=== PATIENT | male | born 1960 | race Caucasian/White ===

== ENCOUNTER 2016-08-27 09:33 | Emergency (ER) | payer OTHER ==
[2016-08-27 09:42] VITALS: BMI 23.5
[2016-08-27] MEDS ORDERED: SODIUM CHLORIDE 1,000 ML IV STA (10:41)
--- NOTE | 2016-08-27 10:41 | PDOC ---
History of Present Illness - General History Source: Patient Exam Limitations: No Limitations - History of Present Illness Initial Comments: 08/27/16 10:50 The patient is a 56-year-old man with a significant past medical history of colitis who presents to the emergency department via walk-in for further evaluation of abdominal pain for the past 4 days. Patient states he went out to have dinner with his children and after arriving home he vomited. Initial emesis appearance consisted of food particles, however the next day he experienced symptoms of intermittent diffuse abdominal cramping pain, described as feeling that his abdomen is "heavy" with a rated 2/10 in severity and vomited 3 times, which as per patient had a bile- yellow-like appearance. He admits that for the past 2 days, he has been feeling better- no nausea, vomiting. He states that today he noted an episode of hematuria- with scant blood, thus he decided to present to the ED for further evaluation. No history of kidney stones. He denies fevers, chills, weakness, chest pain, cough, shortness of breath, headache He denies He denies changes in bowel habits, dysuria, urinary frequency/urgency , flank pain, testicular pain or penile discharge. Allergies: Penicillin Past Surgical History: Appendectomy. Abdominal hernia with mesh Social History: No tobacco and EtOH use. Occasional Marijuana use Primary Care Physician: Dr. Tonio Robles <Hoa Castano - Last Filed: 08/27/16 11:01> - General History Source: Patient, Old Records Exam Limitations: No Limitations <Adela Cedillo - Last Filed: 08/27/16 14:49> - General Chief Complaint: Pain, Acute Stated Complaint: BLOOD IN URINE, VOMITING Time Seen by Provider: 08/27/16 10:35 Past History <Hoa Castano - Last Filed: 08/27/16 11:01> - Past Medical History Anemia: No Asthma: No Cancer: No Cardiac Disorders: No CVA: No COPD: No CHF: No Dementia: No Diabetes: No GI Disorders: Yes (colitis) Disorders: No HTN: No Hypercholesterolemia: No Liver Disease: No Seizures: No Thyroid Disease: No - Surgical History Abdominal Surgery: Yes (abd hernia with mesh) Appendectomy: Yes Cardiac Surgery: No Cholecystectomy: No Lung Surgery: No Neurologic Surgery: No Orthopedic Surgery: No - Psycho/Social/Smoking Cessation Hx Anxiety: No Suicidal Ideation: No Smoking History: Never smoked Have you smoked in the past 12 months: No Information on smoking cessation initiated: No Hx Alcohol Use: No Drug/Substance Use Hx: No Substance Use Type: Alcohol Hx Substance Use Treatment: No <Adela Cedillo - Last Filed: 08/27/16 14:49> - Past Medical History Allergies/Adverse Reactions: Allergies Allergy/AdvReac Type Severity Reaction Status Date / Time Penicillins Allergy Severe Rash Verified 08/27/16 09:38 Home Medications: Ambulatory Orders NK [No Known Home Medication] 08/27/16 Review of Systems - Review of Systems Able to Perform ROS?: Yes Comments:: 08/27/16 10:58 CONSTITUTIONAL: Absent: fever, chills, diaphoresis, generalized weakness, malaise, loss of appetite HEENT: Absent: rhinorrhea, nasal congestion, throat pain, throat swelling, difficulty swallowing, mouth swelling, ear pain, eye pain, visual Changes CARDIOVASCULAR: Absent: chest pain, syncope, palpitations, irregular heart rate , lightheadedness, peripheral edema RESPIRATORY: Absent: cough, shortness of breath, dyspnea with exertion, orthopnea, wheezing, stridor, hemoptysis GASTROINTESTINAL: Present: Abdominal Pain. Nausea. Vomiting. Absent: abdominal distension, diarrhea, constipation, melena, hematochezia GENITOURINARY: Present: Hematuria. Absent: dysuria, frequency, urgency, hesitancy, flank pain, genital pain MUSCULOSKELETAL: Absent: myalgia, arthralgia, joint swelling SKIN: Absent: rash, itching, pallor HEMATOLOGIC/IMMUNOLOGIC: Absent: easy bleeding, easy bruising, lymphadenopathy, frequent infections ENDOCRINE:Absent: unexplained weight gain, unexplained weight loss, heat intolerance, cold intolerance NEUROLOGIC: Absent: headache, focal weakness or paresthesias, dizziness, unsteady gait, seizure, mental status changes, bladder or bowel incontinence PSYCHIATRIC: Absent: anxiety, depression, suicidal or homicidal ideation, hallucinations <Hoa Castano - Last Filed: 08/27/16 11:01> *Physical Exam - Vital Signs Last Vital Signs Temp Pulse Resp BP Pulse Ox 97.8 F 99 H 18 138/104 100 08/27/16 09:39 08/27/16 09:39 08/27/16 09:39 08/27/16 09:39 08/27/16 09:39 - Physical Exam Comments: 08/27/16 10:59 GENERAL: Well developed, well nourished. Awake and alert. No acute distress. HEENT: Normocephalic, atraumatic. PERRLA, EOMI. No conjunctival pallor. Sclera are non-icteric. Moist mucous membranes. Oropharynx is clear. NECK: Supple. Full ROM. No JVD. CARDIOVASCULAR: Regular rate and rhythm. No murmurs, rubs, or gallops. PULMONARY: No evidence of respiratory distress. Lungs clear to auscultation bilaterally. No wheezing, rales or rhonchi. ABDOMINAL: Soft. Non-tender. Non-distended. No rebound or guarding. No organomegaly. Normoactive bowel sounds. MUSCULOSKELETAL: Normal range of motion at all joints. No bony deformities or tenderness. No CVA tenderness. EXTREMITIES: No cyanosis. No clubbing. No edema. No calf tenderness. SKIN: Warm and dry. Normal capillary refill. No rashes. No jaundice. NEUROLOGICAL: Alert, awake, appropriate. Cranial nerves 2-12 intact. Normal speech. PSYCHIATRIC: Cooperative. Good eye contact. Appropriate mood and affect. <Hoa Castano - Last Filed: 08/27/16 11:01> - Vital Signs Last Vital Signs Temp Pulse Resp BP Pulse Ox 97.8 F 99 H 18 138/104 100 08/27/16 09:39 08/27/16 09:39 08/27/16 09:39 08/27/16 09:39 08/27/16 09:39 <Adela Cedillo - Last Filed: 08/27/16 14:49> ED Treatment Course - LABORATORY CBC & Chemistry Diagram: 08/27/16 11:20 08/27/16 11:20 <Adela Cedillo - Last Filed: 08/27/16 14:49> Medical Decision Making - Medical Decision Making 08/27/16 10:42 56-year-old male with history of colitis presents to the emergency department with 3 days of nausea, vomiting and hematuria today; the patient denies abdominal pain. Differential diagnosis includes but is not limited to: Nephrolithiasis, UTI, bladder mass, anemia, electrolyte abnormality, dehydration , toxic/metabolic derangement. Plan: 1. Urine analysis 2. Labs 3. IV fluids for hydration 4. Observe and reevaluate 08/27/16 14:45 Addendum: The patient's labs were reviewed and are noted in the EMR. The urine analysis was significant for several hundred red blood cells and a few white cells (but negative nitrites or LE) therefore CT scan of the abdomen and pelvis was obtained that was negative for signs of nephrolithiasis. I have reevaluated the patient at the time and he is feeling improved. A potential diagnosis is that he passed a kidney stone while he was here in the ED. Will discharge the patient home and I have advised the patient to follow-up with his primary care physician, Dr. Robles, this week. I have also advised the patient to return to the emergency department if his symptoms persist, worsen, or new symptoms arise. <Adela Cedillo - Last Filed: 08/27/16 14:49> *DC/Admit/Observation/Transfer - Attestations Scribe Attestion: 08/27/16 11:00 Documentation prepared by Hoa Castano, acting as medical genetics director for Adela Cedillo MD. <Hoa Castano - Last Filed: 08/27/16 11:01> - Discharge Dispostion Admit: No - Attestations Physician Attestion: 08/27/16 10:42 I, Dr. Adela Cedillo, attest that the scribes documentation that appears above has been prepared under my direction and personally reviewed by me in its entirety. I confirmed that the note above accurately reflects all work, treatment, procedures, and medical decision-making performed by me. <Adela Cedillo - Last Filed: 08/27/16 14:49> Diagnosis at time of Disposition: Hematuria, Nausea and vomiting - Discharge Dispostion Disposition: HOME Condition at time of disposition: Stable - Patient Instructions Printed Discharge Instructions: DI for Hematuria Additional Instructions: You have blood in your urine however your CT scan of the abdomen and pelvis was negative for kidney stones. I urine culture has been sent and your primary care physician should follow the results. You should also be referred to a urologist for follow-up (you may call Dr. Fournier [phone] for an appointment). Please return to the emergency department if your symptoms persist, worsen, or new symptoms arise.
[2016-08-27 11:38] LABS: BASOPHIL 0.6 % (0-2.0); EOSINOPHIL 0.7 % (0-4.5); MCH 29.7 pg (25.7-33.7); MCHC 33.9 g/dl (32.0-35.9); MEAN CELL VOLUME 87.8 fl (80-96); MEAN PLT VOLUME 9.7 fl (7.5-11.1); NEUTROPHILS 78.2 % (42.8-82.8); PLATELET COUNT 245 K/MM3 (134-434); RDW 13.1 % (11.9-15.9); WHITE BLOOD COUNT 10.5 K/mm3 (4.0-10.0)
[2016-08-27 11:52] LABS: ALBUMIN 4.3 g/dl (3.4-5.0); BILIRUBIN,TOTAL 1.1 mg/dL (0.2-1.0); CALCIUM 10.2 mg/dL (8.5-10.1); COCKROFT - GAULT 36.89; CREATININE 2.1 mg/dL (0.7-1.3); PHOSPHOROUS 3.5 mg/dL (2.5-4.9); TOT PROT 8.7 g/dl (6.4-8.2)
[2016-08-27 12:13] LABS: MAGNESIUM 2.2 mg/dL (1.8-2.4)
[2016-08-27 13:58] LABS: URINE APPEARANCE CLOUDY; URINE BILIRUBIN NEGATIVE (NEGATIVE); URINE GLUCOSE (UA) NEGATIVE (NEGATIVE); URINE KETONE 1+ (NEGATIVE); URINE LEUK ESTERASE NEGATIVE (NEGATIVE); URINE NITRITE NEGATIVE (NEGATIVE); URINE UROBILINOGEN NEGATIVE E.U./dl (0.2-1.0)
[2016-08-27 14:00] LABS: URINE BLOOD 3+ (NEGATIVE); URINE COLOR AMBER; URINE PROTEIN 2+ (NEGATIVE)
[2016-08-27 14:03] LABS: URINE MUCUS RARE; URINE WBC 29 /hpf (3-5)
[2016-08-27 14:04] LABS: URINE RBC 489 /hpf (0-3)
[2016-08-27 16:07] VITALS: BP 134/91; PULSE 100; TEMP 97.9
== END 2016-08-27 16:07 | disposition home or self-care (01) ==
LOC: JER 09:33
PROC: 3E0337Z Introduction of Electrolytic and Water Balance Substance into Peripheral Vein, Percutaneous Approach (ICD-10-PCS; principal; 2016-08-27)
DX: R11.2 Nausea with vomiting, unspecified (principal); R31.9 Hematuria, unspecified
CPT/HCPCS: 36415; 74176-TC; 80053; 81003; 81015; 83735; 84100; 85025; 87086; 99283-25

== ENCOUNTER 2019-11-15 18:02 | Inpatient (IN) | payer OTHER ==
[2019-11-15] MEDS ORDERED: LIDOCAINE HCL 2% JELLY 10 ML CARTRIDGE UR ONE (18:10)
[2019-11-15] MEDS ORDERED: LIDOCAINE HCL 2% JELLY (5 ML/TUBE) ONE (18:11)
--- NOTE | 2019-11-15 18:23 | PDOC ---
History of Present Illness - General Chief Complaint: Urinary Problem Stated Complaint: TROUBLE URINATING Time Seen by Provider: 11/15/19 18:07 History Source: Patient Exam Limitations: No Limitations - History of Present Illness Initial Comments: 11/15/19 18:21 HPI 59 YOM h/o colitis and prior appendectomy and abdominal hernia with mesh, presenting with sury hematuria x 2 days, today he was unable to urinate and dysuria/burning sensation (which he is unclear if related to his hematuria). a/w suprapubic pressure. he admits to heat exhaustion and dehydration similar episode several years ago with hematuria and inability to urinate, where he required rosa catheter, no complications and unremarkable workup; sx were attributed to dehydration he also endorses intermittent chest pressure and SOB, dizziness x 2 weeks, usually lasts 15 minutes, nonexertional and nonradiating no history of kidney stones. He denies fevers, chills, weakness, headache He denies changes in bowel habits, diarrhea, vomiting. urinary frequency/urgency, flank pain, testicular pain or penile discharge. Allergies: Penicillin Past Surgical History: Appendectomy. Abdominal hernia with mesh Social History: No tobacco and EtOH use. Occasional Marijuana use Primary Care Physician: Dr. Tonio Robles Review of systems Constitutional: no fevers or chills. No weakness HEENT: no headache or dizziness. No congestion. No visual/hearing disturbances. CVS: no cp or syncope. Resp: no sob. No cough. Gastrointestinal: no abdominal pain, nausea, vomiting, diarrhea. Genitourinary: no urinary sx such as urgency/frequency. +hematuria. +dysuria/burning with urination. +urinary retention. MUSCULOSKELETAL: No joint pain and swelling. No neck or back pain. SKIN: no redness or skin changes, no discharge, no rash. No wounds. Hematologic: no easy bruising/bleeding. NEUROLOGIC: No headache, dizziness, LOC or altered mental status. No weakness, numbness or tingling. Psych: no anxiety or depression Allergic/Immunologic: no allergies All other systems reviewed and negative, or as documented in HPI. Physical exam General: Well appearing, awake and alert, NAD. HEENT: NCAT, PERRL, EOMI, clear conjunctiva, anicteric, moist mucus membranes, clear oropharynx, no oral lesions.. Neck: neck supple, FROM Resp: CTAB, normal and even respirations, no respiratory distress CVS: tachycardic, no murmurs, 2+ peripheral pulses throughout, no peripheral edema Abdomen: soft, +suprapubic tenderness. no rebound. +vol guarding. no CVAT. Back: nontender, normal inspection and ROM MSK: no edema, SHARP x4, ROM intact. No clubbing or cyanosis. normal bulk and tone. Extremities: no calf tenderness Neuro: alert Psych: Calm and cooperative, mildly anxious Skin: warm and well perfused, cap refill <2 sec, normal color, no rash or skin discoloration. 11/15/19 18:24 11/15/19 18:26 Past History - Medical History Allergies/Adverse Reactions: Allergies Allergy/AdvReac Type Severity Reaction Status Date / Time Penicillins Allergy Severe Rash Verified 11/15/19 18:03 Home Medications: Ambulatory Orders NK [No Known Home Medication] 08/27/16 Anemia: No Asthma: No Cancer: No Cardiac Disorders: No CVA: No COPD: No CHF: No Dementia: No Diabetes: No GI Disorders: Yes (colitis) Disorders: No HTN: No Hypercholesterolemia: No Liver Disease: No Seizures: No Thyroid Disease: No - Surgical History Abdominal Surgery: Yes (abd hernia with mesh) Appendectomy: Yes Cardiac Surgery: No Cholecystectomy: No Lung Surgery: No Neurologic Surgery: No Orthopedic Surgery: No - Psycho-Social/Smoking History Smoking History: Never smoked Have you smoked in the past 12 months: No Heart Score/ECG Review #1 ECG reviewed & interpreted by me at: 18:40 General ECG Interpretation: Sinus Rhythm, Normal Rate, Normal Intervals 11/15/19 18:57 EKG normal sinus rhythm 89 bpm, no interval abnormalities, narrow QRS, ST and T wave segments and morphology normal. Nonspecific T wave abnormalities ED Treatment Course - LABORATORY CBC & Chemistry Diagram: 11/16/19 17:18 11/16/19 10:28 Medical Decision Making - Medical Decision Making 11/15/19 18:26 Vital Signs Temp Pulse Resp BP Pulse Ox 98.7 F 108 H 18 153/94 100 11/15/19 18:03 11/15/19 18:03 11/15/19 18:03 11/15/19 18:03 11/15/19 18:03 59-year-old male with history of colitis presents to the emergency department with hematuria x 2 days, unable to urinate, suprapubic pressure; the patient denies abdominal pain or flank pain Differential diagnosis includes but is not limited to: Nephrolithiasis, UTI, bladder mass, hemorrhagic cystitis, Cr elevation/KIERAN, anemia, electrolyte abnormality, dehydration, toxic/metabolic derangement. ACS, arrhythmia doubt PE more likely pain/discomfort and anxiety 11/15/19 18:55 rosa catheter placed, 1L sury blood output in the container. labs and lytes with acute anemia Hb 6.6, hcg 21. needs blood, sury hematuria and acute blood loss anemia transfuse 2 units of blood. consent signed, discussed indications and risks of blood transfusion CT spiral indicated to eval for stone vs mass Cr chronically elevated ~2 IV abx - to cover for infection empirically given his urinary sx. admission warranted 11/15/19 18:57 11/16/19 19:44 Discharge - Discharge Information Problems reviewed: Yes Clinical Impression/Diagnosis: Anemia, Bladder mass Hematuria Qualifiers: Qualified Code(s): R31.9 - Condition: Stable - Admission Yes - Follow up/Referral - Patient Discharge Instructions - Post Discharge Activity
[2019-11-15] MEDS ORDERED: SODIUM CHLORIDE 0.9% 500 ML INFUS.BAG IV ONE (18:24)
[2019-11-15 18:46] LABS: BASO % 0.6 % (0-2.0); EOS % 1.5 % (0-4.5); LYMPH % 13.1 % (8-40); MCHC 30.3 g/dl (32.0-35.9); MEAN CELL VOLUME 63.7 fl (80-96); MEAN PLT VOLUME 7.5 fl (7.5-11.1); MONO % 9.3 % (3.8-10.2); NEUT % 75.5 % (42.8-82.8); PLATELET COUNT 404 K/MM3 (134-434); RDW 16.1 % (11.9-15.9); WHITE BLOOD COUNT 11.8 K/mm3 (4.0-10.8)
[2019-11-15 18:47] LABS: MCH 19.3 pg (25.7-33.7)
[2019-11-15 18:51] LABS: HEMOGLOBIN 6.6 GM/dl (11.7-16.9)
[2019-11-15 18:52] LABS: ADD RBC MORPHOLOGY YES; HEMATOCRIT 21.7 % (35.4-49)
[2019-11-15 18:53] LABS: ACTIVATED PTT 23.2 SECONDS (25.2-36.5)
[2019-11-15 18:55] LABS: ALBUMIN 3.3 g/dl (3.4-5.0); BILIRUBIN,TOTAL 0.5 mg/dl (0.2-1); CALCIUM 8.4 mg/dl (8.5-10); CREATININE 2.2 mg/dl (0.55-1.3); POTASSIUM 4.1 mmol/L (3.5-5.1); TOT PROT 6.5 g/dl (6.4-8.2)
[2019-11-15 18:57] LABS: INR 1.09 (0.82-1.09); PROTHROMBIN TIME (PATIENT) 12.2 SEC (10.2-13.0)
--- NOTE | 2019-11-15 20:07 | PDOC ---
*Physical Exam - Vital Signs Last Vital Signs Temp Pulse Resp BP Pulse Ox 98.7 F 108 H 18 153/94 100 11/15/19 18:03 11/15/19 18:03 11/15/19 18:03 11/15/19 18:03 11/15/19 18:03 ED Treatment Course - LABORATORY CBC & Chemistry Diagram: 11/17/19 15:45 11/17/19 07:25 - ADDITIONAL ORDERS Additional order review: Laboratory Results 11/15/19 11/15/19 11/15/19 19:05 18:25 18:25 PT with INR INR PTT (Actin FS) Sodium 135 L Potassium 4.1 Chloride 108 H Carbon Dioxide 19 L Anion Gap 8 BUN 32.0 H Creatinine 2.2 H Est GFR (CKD-EPI)AfAm 36.13 Est GFR (CKD-EPI)NonAf 31.17 Random Glucose 119 H Calcium 8.4 L Total Bilirubin 0.5 AST 17 ALT 16 Alkaline Phosphatase 58 Creatine Kinase 79 Troponin I < 0.03 Total Protein 6.5 Albumin 3.3 L Urine Color Urine Appearance Urine pH Urine Protein Urine Glucose (UA) Urine Ketones Urine Blood Urine Nitrite Urine Bilirubin Urine Urobilinogen Ur Leukocyte Esterase Urine RBC Urine WBC Urine Bacteria Crossmatch See Detail 11/15/19 11/15/19 18:25 18:22 PT with INR 12.2 INR 1.09 PTT (Actin FS) 23.2 L Sodium Potassium Chloride Carbon Dioxide Anion Gap BUN Creatinine Est GFR (CKD-EPI)AfAm Est GFR (CKD-EPI)NonAf Random Glucose Calcium Total Bilirubin AST ALT Alkaline Phosphatase Creatine Kinase Troponin I Total Protein Albumin Urine Color Red Urine Appearance Bloody Urine pH 6.0 Urine Protein 2+ H Urine Glucose (UA) Negative Urine Ketones Negative Urine Blood 3+ H Urine Nitrite Negative Urine Bilirubin Small Urine Urobilinogen 0.2 Ur Leukocyte Esterase Trace H Urine RBC >100 Urine WBC 2-5 Urine Bacteria Moderate Crossmatch 11/15/19 18:30 RBC 3.40 L MCV 63.7 L MCHC 30.3 L RDW 16.1 H MPV 7.5 Neutrophils % 75.5 Lymphocytes % 13.1 Monocytes % 9.3 Eosinophils % 1.5 Basophils % 0.6 - Medications Given in the ED: ED Medications Discontinued Medications Generic Name Dose Route Start Last Admin Trade Name Freq PRN Reason Stop Dose Admin Lidocaine HCl 5 ml 11/15/19 18:10 11/15/19 18:37 Xylocaine 2% Uro-Jet UR 11/15/19 18:11 5 ml ONCE ONE Administration Sodium Chloride 1,000 ml 11/15/19 18:24 11/15/19 18:37 Normal Saline - IV 11/15/19 18:25 1,000 ml ONCE ONE Administration ED Progress Note - Progress Note Progress Note: Care of this patient received from Dr. Engel Renal stone protocol spiral CT performed: Interpretation by Dr. Germain of the radiology staff-5 x 5 cm bladder mass impinging on right ureteral orifice causing hydronephrosis/hydroureter Because of the presence of bacteria and RBCs/WBCs in urinalysis/urine microscopic, patient will be empirically treated with Rocephin 1 g IV Results discussed with the patient Patient requested Dr. Rasmussen for urology care. He was contacted and case discussed with him. Dr. Rasmussen requested that patient be admitted to [facility] and that he be kept NPO after midnight for possibility of urologic procedure tomorrow morning. Case discussed with SRINIVAS Kay. Patient will be admitted to [facility]. Discharge - Discharge Information Problems reviewed: Yes Clinical Impression/Diagnosis: Anemia, Bladder mass Hematuria Qualifiers: Qualified Code(s): R31.9 - Condition: Stable - Admission Yes - Follow up/Referral - Patient Discharge Instructions - Post Discharge Activity
[2019-11-15 20:44] LABS: ANISOCYTOSIS 1+; OVALOCYTE 1+; PLATELET ESTIMATE SLT INCREASE
[2019-11-15] MEDS ORDERED: CEFTRIAXONE 1,000 MG in DEXTROSE 5%-WATER - 50 ML IVPB ONE (21:18)
[2019-11-15] MEDS ORDERED: cefTRIAXone SODIUM 1 GM VIAL ONE (21:24)
--- NOTE | 2019-11-15 23:31 | HP ---
CHIEF COMPLAINT: hematuria and unable to urinate PCP:Dr. Tonio Robles HISTORY OF PRESENT ILLNESS: Mr. Hayden is a 59 year old male with past medical history of colitis, prior appendectomy and abdominal hernia with mesh who presented with sury hematuria x ome amd a half week. For the past 2 days he reports he was unable to urinate with dysuria/burning sensation and with suprapubic pressure. He reported having heat exhaustion and dehydration and a similar episode several years ago with hematuria and inability to urinate, where he required a rosa catheter, no complications and had an unremarkable workup and his symptoms were attributed to dehydration at that time. He also endorsed intermittent chest pressure and SOB, dizziness x 2 weeks, usually lasting 15 minutes, nonexertional and nonradiating. He denied fevers, chills, weakness, headache, changes in bowel habits, diarrhea, vomiting, urinary frequency/urgency, flank pain, or testicular pain. ER course notable for: (1)severe anemia- hgb/hct 6.6/21.7, receiving 2 Units of PRBC's (2)CT scan of abdomen with a [id number] non calcific soft tissue lesion in the right lateral half of kidney, Urology consulted-Dr. Rene (3)UA with 3+ hematuria, 2+ proteiniuria, negative nitrite, moderate bacteria ,trace leukoesterase (4)WBC 11,800- received one dose of IV Rocephin (5)KIERAN- BUN 32/creatinine 2.2 (6)normal troponin Recent Travel: no PAST MEDICAL HISTORY: colitis PAST SURGICAL HISTORY: appendectomy abdominal hernia with mesh Family History: noncontributory Social History: No tobacco and ETOH use occasional marijuana use Allergies Penicillins Allergy (Severe, Verified 11/15/19 18:03) Rash HOME MEDICATIONS: Home Medications Medication Instructions Recorded NK [No Known Home Medication] 08/27/16 REVIEW OF SYSTEMS CONSTITUTIONAL: Absent: fever, chills, diaphoresis, generalized weakness, malaise, loss of appetite, weight change HEENT: Absent: rhinorrhea, nasal congestion, throat pain, throat swelling, difficulty swallowing, mouth swelling, ear pain, eye pain, visual changes CARDIOVASCULAR: Absent: chest pain, syncope, palpitations, irregular heart rate, lightheadedness, peripheral edema, dizziness RESPIRATORY: Absent: cough, shortness of breath, dyspnea with exertion, orthopnea, wheezing, stridor, hemoptysis GASTROINTESTINAL: Absent: abdominal pain, abdominal distension, nausea, vomiting, diarrhea, constipation, melena, hematochezia GENITOURINARY: Absent: dysuria, frequency, urgency, hesitancy, hematuria, flank pain, genital pain MUSCULOSKELETAL: Absent: myalgia, arthralgia, joint swelling, back pain, neck pain SKIN: Absent: rash, itching, pallor HEMATOLOGIC/IMMUNOLOGIC: Absent: easy bleeding, easy bruising, lymphadenopathy, frequent infections ENDOCRINE: Absent: unexplained weight gain, unexplained weight loss, heat intolerance, cold intolerance NEUROLOGIC: Absent: headache, focal weakness or paresthesias, dizziness, unsteady gait, seizure, mental status changes, bladder or bowel incontinence PSYCHIATRIC: Absent: anxiety, depression, suicidal or homicidal ideation, hallucinations. PHYSICAL EXAMINATION Vital Signs - 24 hr 11/15/19 18:03 Temperature 98.7 F Pulse Rate 108 H Respiratory 18 Rate Blood Pressure 153/94 O2 Sat by Pulse 100 Oximetry (%) general no acute distress vital signs reviewed afebrile neuro no neuro deficits lungs cta nonlabored breathing effort no rales no wheezing heart s1s2 rate tachycardic regular abdomen soft nontender nondistended extremities warm to touch no pitting edema no cyanosis skin nail beds and lips pink mod calm Laboratory Results - last 24 hr 11/15/19 11/15/19 11/15/19 18:22 18:25 18:25 WBC RBC Hgb Hct MCV MCH MCHC RDW Plt Count MPV Absolute Neuts (auto) Neutrophils % Lymphocytes % Monocytes % Eosinophils % Basophils % Hypochromia Platelet Estimate Anisocytosis Microcytosis Ovalocytes PT with INR 12.2 INR 1.09 PTT (Actin FS) 23.2 L Sodium 135 L Potassium 4.1 Chloride 108 H Carbon Dioxide 19 L Anion Gap 8 BUN 32.0 H Creatinine 2.2 H Est GFR (CKD-EPI)AfAm 36.13 Est GFR (CKD-EPI)NonAf 31.17 Random Glucose 119 H Calcium 8.4 L Total Bilirubin 0.5 AST 17 ALT 16 Alkaline Phosphatase 58 Creatine Kinase 79 Troponin I Total Protein 6.5 Albumin 3.3 L Urine Color Red Urine Appearance Bloody Urine pH 6.0 Urine Protein 2+ H Urine Glucose (UA) Negative Urine Ketones Negative Urine Blood 3+ H Urine Nitrite Negative Urine Bilirubin Small Urine Urobilinogen 0.2 Ur Leukocyte Esterase Trace H Urine RBC >100 Urine WBC 2-5 Urine Bacteria Moderate Blood Type Antibody Screen Crossmatch 11/15/19 11/15/19 11/15/19 18:25 18:30 19:01 WBC 11.8 H RBC 3.40 L Hgb 6.6 L* Hct 21.7 L MCV 63.7 L MCH 19.3 L MCHC 30.3 L RDW 16.1 H Plt Count 404 MPV 7.5 Absolute Neuts (auto) 8.9 Neutrophils % 75.5 Lymphocytes % 13.1 Monocytes % 9.3 Eosinophils % 1.5 Basophils % 0.6 Hypochromia 3+ Platelet Estimate Slt increase Anisocytosis 1+ Microcytosis 3+ Ovalocytes 1+ PT with INR INR PTT (Actin FS) Sodium Potassium Chloride Carbon Dioxide Anion Gap BUN Creatinine Est GFR (CKD-EPI)AfAm Est GFR (CKD-EPI)NonAf Random Glucose Calcium Total Bilirubin AST ALT Alkaline Phosphatase Creatine Kinase Troponin I < 0.03 Total Protein Albumin Urine Color Urine Appearance Urine pH Urine Protein Urine Glucose (UA) Urine Ketones Urine Blood Urine Nitrite Urine Bilirubin Urine Urobilinogen Ur Leukocyte Esterase Urine RBC Urine WBC Urine Bacteria Blood Type O POSITIVE Antibody Screen Negative Crossmatch 11/15/19 19:05 WBC RBC Hgb Hct MCV MCH MCHC RDW Plt Count MPV Absolute Neuts (auto) Neutrophils % Lymphocytes % Monocytes % Eosinophils % Basophils % Hypochromia Platelet Estimate Anisocytosis Microcytosis Ovalocytes PT with INR INR PTT (Actin FS) Sodium Potassium Chloride Carbon Dioxide Anion Gap BUN Creatinine Est GFR (CKD-EPI)AfAm Est GFR (CKD-EPI)NonAf Random Glucose Calcium Total Bilirubin AST ALT Alkaline Phosphatase Creatine Kinase Troponin I Total Protein Albumin Urine Color Urine Appearance Urine pH Urine Protein Urine Glucose (UA) Urine Ketones Urine Blood Urine Nitrite Urine Bilirubin Urine Urobilinogen Ur Leukocyte Esterase Urine RBC Urine WBC Urine Bacteria Blood Type O POSITIVE Antibody Screen Negative Crossmatch See Detail ASSESSMENT/PLAN: 59 year old male with past medical history of colitis, prior appendectomy and abdominal hernia with mesh who presented with sury hematuria for the past week and a half and for the past 2 days with difficulty urinating and with a sensation and with suprapubic pressure. He was found to have severe anemia, leukocytosis, moderate vbacteria by UA, acute renal insufficiency and a new finding of a bladder lesion seen on CT scan of abdomen. 1. severe anemia in setting of gross hematuria asymptomatic hgb/hct 6.6/21.7 2 Units of PRBC's in progress repeat CBC in am no evidence of hypotension 2. bladder mass (new) CT scan of abdomen with a [id number] non calcific soft tissue lesion in the right lateral half of kidney Urology consulted-Dr. Rene UA with 3+ hematuria, 2+ proteinuria, trace leukoesterase, negative nitrite, moderate bacteria WBC 11,800, afebrile, received one dose of IV Rocephin urine culture pending consider ID consult if urine culture positive will keep patient NPO in anticipation for cystoscopy 3. acute renal insufficiency likey in setting of urinary retention/dehydration BUN 32/creatinine 2.2 received 1 liter IVF repeat BMP in am Nephrology consulted- Dr. Lopes 4.R/O COVID follow up on COVID swab sent 11/14 maintain strict isolation precautions for contact and droplet maintain o2 sat >90% FEN receiving blood products, will hold on giving any more IVF simultaneously with blood to prevent fluid overload BMP daily, replete electrolytes as needed NPO DVT Prophlaxis SCD's Visit type - Emergency Visit Emergency Visit: Yes ED Registration Date: 11/16/19 Care time: The patient presented to the Emergency Department on the above date and was hospitalized for further evaluation of their emergent condition. - New Patient This patient is new to me today: Yes Date on this admission: 11/16/19 - Critical Care Critical Care patient: No
[2019-11-16 04:00] VITALS: BMI 23.7
[2019-11-16] MEDS ORDERED: SODIUM CHLORIDE 1,000 ML IV SCH (08:45)
[2019-11-16] MEDS ORDERED: cefTRIAXone SODIUM 1 GM VIAL ONE (09:05)
[2019-11-16] MEDS ORDERED: DEXTROSE 5%-WATER - 50 ML IVPB ONE (09:05)
--- NOTE | 2019-11-16 09:15 | EKG ---
Test Reason : Blood Pressure : / mmHG Vent. Rate : 089 BPM Atrial Rate : 089 BPM P-R Int : 138 ms QRS Dur : 082 ms QT Int : 352 ms P-R-T Axes : 055 009 009 degrees QTc Int : 428 ms NORMAL SINUS RHYTHM NORMAL ECG NO PREVIOUS ECGS AVAILABLE Confirmed by MD CORBIN, CLAYTON ([id number]) on 11/16/2019 9:15:07 AM Referred By: Confirmed By:CLAYTON ALANIZ MD
[2019-11-16] MEDS: CEFTRIAXONE 1 GM in DEXTROSE 5%-WATER - 50 ML IVPB SCH (09:18)
[2019-11-16] MEDS ORDERED: ACETAMINOPHEN 500 MG TABLET (FP) PO PRN (11:06)
[2019-11-16 11:40] LABS: HEMATOCRIT 24.7 % (35.4-49); HEMOGLOBIN 7.7 GM/dL (11.7-16.9); MCH 21.2 pg (25.7-33.7); MEAN CELL VOLUME 68.4 fl (80-96); MEAN PLT VOLUME 8.5 fl (7.5-11.1); PLATELET COUNT 348 K/MM3 (134-434); RBC 3.62 M/mm3 (4.00-5.60); RDW 19.6 % (11.9-15.9)
--- NOTE | 2019-11-16 11:41 | CON.GU ---
Consult Consult Specialty:: Urology Referred by:: Nate service Reason for Consultation:: 59 yo male w several days gross hematuria and clotts also werakness over last several weeks. Pt states first episode of gross hematuria recently. No appreciable flank pain - Alcohol/Substance Use Hx Alcohol Use: No - Smoking History Smoking history: Never smoked Have you smoked in the past 12 months: No Home Medications - Allergies Allergies/Adverse Reactions: Allergies Allergy/AdvReac Type Severity Reaction Status Date / Time Penicillins Allergy Severe Rash Verified 11/15/19 18:03 - Home Medications Home Medications: Ambulatory Orders NK [No Known Home Medication] 08/27/16 Physical Exam- Vital Signs: Vital Signs Temperature 99.0 F 11/16/19 11:15 Pulse Rate 76 11/16/19 11:15 Respiratory Rate 18 11/16/19 11:15 Blood Pressure 126/87 11/16/19 11:15 O2 Sat by Pulse Oximetry (%) 99 11/16/19 11:15 Imaging - Results Cat Scan: Report Reviewed, Image Reviewed Problem List - Problems (1) Bladder mass Assessment/Plan: 5 cm riight sided bladder mass w secondary hydronephrosis and hematuria Pt currently undergoing second unit transfusion cont rosa to sd w irrigations For cysto turbt evacuation of clotts will plan for tomorrow NPO p mn Code(s): N32.89 - OTHER SPECIFIED DISORDERS OF BLADDER (2) Hematuria Code(s): R31.9 - HEMATURIA, UNSPECIFIED Qualifiers: Qualified Code(s): R31.9 - Hematuria, unspecified
[2019-11-16 12:08] LABS: CALCIUM 8.5 mg/dL (8.5-10.1); CREATININE 1.9 mg/dL (0.55-1.3); MAGNESIUM 2.3 mg/dL (1.8-2.4); PHOSPHOROUS 3.3 mg/dL (2.5-4.9); POTASSIUM 4.4 mmol/L (3.5-5.1)
--- NOTE | 2019-11-16 12:58 | CONSULT ---
Consultation: REQUESTING PROVIDER: Dr. Arreguin CONSULT REQUEST: We have been asked to medically evaluate this patient for Bladder mass. HISTORY OF PRESENT ILLNESS: Pt. is a 59 y.o. M w/ PMHx. of colitis when he was younger (had colonoscopy then but does not remember the details - has not had one in over 5 years however he believes they were negative) presents with hematuria including clots for the last 2 weeks. Pt. states that he came to the hospital once he started to develop increased difficulty/inablity to urinate starting 2 days ago. Pt. states this happened a few years ago when he was dehydrated; he came to the hospital was given IV fluids and a rosa. The CT A/P (non-con) at that time was negative. Pt. endorses feeling weak, dizziness, and dyspnea on exertion prior to arrival to the hospital. He states he tried to orally hydrate himself but was not able to keep up with the fluid loss. Today Pt. endorses lower abdominal fullness but not pain. Pt. denies any fever, chills, diarrhea, constipation, blood in the stool, nausea, vomiting. Pt. denies any family history of malignacy because he was adopted as a child. Pt. endorses marijuana usage every other day to help with sleep. Pt. dneies smoking or drinking history. REVIEW OF SYSTEMS: As above PHYSICAL EXAMINATION Vital Signs - 24 hr 11/15/19 11/15/19 11/16/19 18:03 19:15 00:05 Temperature 98.7 F 98.8 F Pulse Rate 108 H Pulse Rate [ 86 Left] Respiratory 18 Rate Blood Pressure 153/94 Blood Pressure 126/88 [Right Arm] O2 Sat by Pulse 100 97 100 Oximetry (%) 11/16/19 11/16/19 11/16/19 02:40 03:00 03:55 Temperature 98.8 F 98.3 F Pulse Rate 80 75 Pulse Rate [ Left] Respiratory 20 20 Rate Blood Pressure 137/80 137/80 Blood Pressure [Right Arm] O2 Sat by Pulse 98 98 99 Oximetry (%) 11/16/19 11/16/19 11/16/19 06:00 07:04 07:30 Temperature 98.6 F 98.3 F 98 F Pulse Rate 82 73 73 Pulse Rate [ Left] Respiratory 20 20 20 Rate Blood Pressure 120/75 114/72 123/71 Blood Pressure [Right Arm] O2 Sat by Pulse 98 99 98 Oximetry (%) 11/16/19 11/16/19 09:00 11:15 Temperature 98.8 F 99.0 F Pulse Rate 81 76 Pulse Rate [ Left] Respiratory 20 18 Rate Blood Pressure 114/78 126/87 Blood Pressure [Right Arm] O2 Sat by Pulse 98 99 Oximetry (%) GENERAL: Awake, alert, and fully oriented, in no acute distress. HEAD: Normal with no signs of trauma. EYES: Sclera anicteric, conjunctiva clear. EARS, NOSE, THROAT: Ears normal, nares patent, oropharynx clear without exudates. Moist mucous membranes. LUNGS: Breath sounds equal, clear to auscultation bilaterally. No wheezes, and no crackles. No accessory muscle use. HEART: Regular rate and rhythm, normal S1 and S2 without murmur ABDOMEN: Soft, nontender, not distended, normoactive bowel sounds, no guarding, no rebound, no masses. Rosa draining pink urine. MUSCULOSKELETAL: Normal range of motion at all joints. UPPER EXTREMITIES: warm, well-perfused. No cyanosis. No peripheral edema. LOWER EXTREMITIES: 2+ dorsal pedal pulses, warm, well-perfused. No calf tenderness. No peripheral edema. NEUROLOGICAL: Normal speech. Gait not assessed PSYCHIATRIC: Cooperative. Good eye contact. Appropriate mood and affect. SKIN: Warm, dry, normal turgor, no rashes or lesions noted. Laboratory Results - last 24 hr 11/15/19 11/15/19 11/15/19 18:22 18:25 18:25 WBC RBC Hgb Hct MCV MCH MCHC RDW Plt Count MPV Absolute Neuts (auto) Neutrophils % Lymphocytes % Monocytes % Eosinophils % Basophils % Hypochromia Platelet Estimate Anisocytosis Microcytosis Ovalocytes PT with INR 12.2 INR 1.09 PTT (Actin FS) 23.2 L Sodium 135 L Potassium 4.1 Chloride 108 H Carbon Dioxide 19 L Anion Gap 8 BUN 32.0 H Creatinine 2.2 H Est GFR (CKD-EPI)AfAm 36.13 Est GFR (CKD-EPI)NonAf 31.17 Random Glucose 119 H Calcium 8.4 L Phosphorus Magnesium Total Bilirubin 0.5 AST 17 ALT 16 Alkaline Phosphatase 58 Creatine Kinase 79 Troponin I Total Protein 6.5 Albumin 3.3 L Urine Color Red Urine Appearance Bloody Urine pH 6.0 Urine Protein 2+ H Urine Glucose (UA) Negative Urine Ketones Negative Urine Blood 3+ H Urine Nitrite Negative Urine Bilirubin Small Urine Urobilinogen 0.2 Ur Leukocyte Esterase Trace H Urine RBC >100 Urine WBC 2-5 Urine Bacteria Moderate Blood Type Antibody Screen Crossmatch 11/15/19 11/15/19 11/15/19 18:25 18:30 19:01 WBC 11.8 H RBC 3.40 L Hgb 6.6 L* Hct 21.7 L MCV 63.7 L MCH 19.3 L MCHC 30.3 L RDW 16.1 H Plt Count 404 MPV 7.5 Absolute Neuts (auto) 8.9 Neutrophils % 75.5 Lymphocytes % 13.1 Monocytes % 9.3 Eosinophils % 1.5 Basophils % 0.6 Hypochromia 3+ Platelet Estimate Slt increase Anisocytosis 1+ Microcytosis 3+ Ovalocytes 1+ PT with INR INR PTT (Actin FS) Sodium Potassium Chloride Carbon Dioxide Anion Gap BUN Creatinine Est GFR (CKD-EPI)AfAm Est GFR (CKD-EPI)NonAf Random Glucose Calcium Phosphorus Magnesium Total Bilirubin AST ALT Alkaline Phosphatase Creatine Kinase Troponin I < 0.03 Total Protein Albumin Urine Color Urine Appearance Urine pH Urine Protein Urine Glucose (UA) Urine Ketones Urine Blood Urine Nitrite Urine Bilirubin Urine Urobilinogen Ur Leukocyte Esterase Urine RBC Urine WBC Urine Bacteria Blood Type O POSITIVE Antibody Screen Negative Crossmatch 11/15/19 11/16/19 11/16/19 19:05 10:28 10:28 WBC 11.0 H RBC 3.62 L Hgb 7.7 L Hct 24.7 L D MCV 68.4 L MCH 21.2 L D MCHC 31.0 L RDW 19.6 H Plt Count 348 D MPV 8.5 D Absolute Neuts (auto) Neutrophils % Lymphocytes % Monocytes % Eosinophils % Basophils % Hypochromia Platelet Estimate Anisocytosis Microcytosis Ovalocytes PT with INR INR PTT (Actin FS) Sodium 141 Potassium 4.4 Chloride 114 H Carbon Dioxide 21 Anion Gap 6 L BUN 24.0 H Creatinine 1.9 H Est GFR (CKD-EPI)AfAm 43.14 Est GFR (CKD-EPI)NonAf 37.22 Random Glucose 87 Calcium 8.5 Phosphorus 3.3 Magnesium 2.3 Total Bilirubin AST ALT Alkaline Phosphatase Creatine Kinase Troponin I Total Protein Albumin Urine Color Urine Appearance Urine pH Urine Protein Urine Glucose (UA) Urine Ketones Urine Blood Urine Nitrite Urine Bilirubin Urine Urobilinogen Ur Leukocyte Esterase Urine RBC Urine WBC Urine Bacteria Blood Type O POSITIVE Antibody Screen Negative Crossmatch See Detail Active Medications Generic Name Dose Route Start Last Admin Trade Name Karel PRN Reason Stop Dose Admin Acetaminophen 500 mg 11/16/19 11:06 Tylenol - PO Q6H PRN FEVER Ceftriaxone Sodium 1 gm/ 50 mls @ 200 mls/hr 11/16/19 10:00 11/16/19 09:18 Dextrose IVPB 200 mls/hr DAILY MARKY Administration Protocol Sodium Chloride 1,000 mls @ 75 mls/hr 11/16/19 08:45 11/16/19 09:18 Normal Saline - IV 11/16/19 22:04 75 mls/hr ASDIR MARKY Administration ASSESSMENT/PLAN: Pt. is a 59 y.o. M w/ PMHx. of colitis when he was younger (had colonoscopy then but does not remember the details - has not had one in over 5 years however he believes they were negative) presents with hematuria for the last 2 weeks. #Bladder Mass w/ Hematuria CT A/P without contrast: 5x5x5 cm bladder mass in the lateral right half with mild to moderate hydroureteronephrosis, with mild soft tisue stranding, mild L. renal atrophy w/ cortical scarring and possible R. multifocal cortical scarring; punctate calcification of posterior GB wall Urology consult appreciated--> Pt. for cysoscopy in AM with biopsy Pt. received 2 units pRBCs, f/u AM CBC Anemia likely related to the acute blood loss over the last 2 weeks. Recommend surgical consult for GB pathology? (punctate calcification) Dispo: We will continue to follow the patient. Thank you for this consultative opportunity. Visit type - Emergency Visit Emergency Visit: Yes ED Registration Date: 11/16/19 Care time: The patient presented to the Emergency Department on the above date and was hospitalized for further evaluation of their emergent condition. - New Patient This patient is new to me today: Yes Date on this admission: 11/17/19 - Critical Care Critical Care patient: No ATTENDING PHYSICIAN STATEMENT I saw and evaluated the patient. I reviewed the resident's note and discussed the case with the resident. I agree with the resident's findings and plan as documented. SUBJECTIVE: OBJECTIVE: ASSESSMENT AND PLAN:
--- NOTE | 2019-11-16 13:48 | PN ---
Physical Exam: SUBJECTIVE: Patient seen and examined at bedside. The patient does not endorse any acute overnight events. The patient is producing bright red urine. Will be seen by urology for cystoscopy 11/16. OBJECTIVE: Vital Signs Period Temp Pulse Resp BP Sys/Beltran Pulse Ox Last 24 Hr 98 F-99.0 F 73-108 18-20 114-153/71-94 97-100 GENERAL: The patient is awake, alert, and fully oriented, in no acute distress. HEAD: Normal with no signs of trauma. LUNGS: Breath sounds equal, clear to auscultation bilaterally, no wheezes, no crackles, no accessory muscle use. HEART: Regular rate and rhythm, S1, S2 without murmur, rub or gallop. EXTREMITIES: 2+ pulses, warm, well-perfused, no edema. Laboratory Results - last 24 hr 11/15/19 11/15/19 11/15/19 18:22 18:25 18:25 WBC RBC Hgb Hct MCV MCH MCHC RDW Plt Count MPV Absolute Neuts (auto) Neutrophils % Lymphocytes % Monocytes % Eosinophils % Basophils % Hypochromia Platelet Estimate Anisocytosis Microcytosis Ovalocytes PT with INR 12.2 INR 1.09 PTT (Actin FS) 23.2 L Sodium 135 L Potassium 4.1 Chloride 108 H Carbon Dioxide 19 L Anion Gap 8 BUN 32.0 H Creatinine 2.2 H Est GFR (CKD-EPI)AfAm 36.13 Est GFR (CKD-EPI)NonAf 31.17 Random Glucose 119 H Calcium 8.4 L Phosphorus Magnesium Total Bilirubin 0.5 AST 17 ALT 16 Alkaline Phosphatase 58 Creatine Kinase 79 Troponin I Total Protein 6.5 Albumin 3.3 L Urine Color Red Urine Appearance Bloody Urine pH 6.0 Urine Protein 2+ H Urine Glucose (UA) Negative Urine Ketones Negative Urine Blood 3+ H Urine Nitrite Negative Urine Bilirubin Small Urine Urobilinogen 0.2 Ur Leukocyte Esterase Trace H Urine RBC >100 Urine WBC 2-5 Urine Bacteria Moderate Blood Type Antibody Screen Crossmatch 11/15/19 11/15/19 11/15/19 18:25 18:30 19:01 WBC 11.8 H RBC 3.40 L Hgb 6.6 L* Hct 21.7 L MCV 63.7 L MCH 19.3 L MCHC 30.3 L RDW 16.1 H Plt Count 404 MPV 7.5 Absolute Neuts (auto) 8.9 Neutrophils % 75.5 Lymphocytes % 13.1 Monocytes % 9.3 Eosinophils % 1.5 Basophils % 0.6 Hypochromia 3+ Platelet Estimate Slt increase Anisocytosis 1+ Microcytosis 3+ Ovalocytes 1+ PT with INR INR PTT (Actin FS) Sodium Potassium Chloride Carbon Dioxide Anion Gap BUN Creatinine Est GFR (CKD-EPI)AfAm Est GFR (CKD-EPI)NonAf Random Glucose Calcium Phosphorus Magnesium Total Bilirubin AST ALT Alkaline Phosphatase Creatine Kinase Troponin I < 0.03 Total Protein Albumin Urine Color Urine Appearance Urine pH Urine Protein Urine Glucose (UA) Urine Ketones Urine Blood Urine Nitrite Urine Bilirubin Urine Urobilinogen Ur Leukocyte Esterase Urine RBC Urine WBC Urine Bacteria Blood Type O POSITIVE Antibody Screen Negative Crossmatch 11/15/19 11/16/19 11/16/19 19:05 10:28 10:28 WBC 11.0 H RBC 3.62 L Hgb 7.7 L Hct 24.7 L D MCV 68.4 L MCH 21.2 L D MCHC 31.0 L RDW 19.6 H Plt Count 348 D MPV 8.5 D Absolute Neuts (auto) Neutrophils % Lymphocytes % Monocytes % Eosinophils % Basophils % Hypochromia Platelet Estimate Anisocytosis Microcytosis Ovalocytes PT with INR INR PTT (Actin FS) Sodium 141 Potassium 4.4 Chloride 114 H Carbon Dioxide 21 Anion Gap 6 L BUN 24.0 H Creatinine 1.9 H Est GFR (CKD-EPI)AfAm 43.14 Est GFR (CKD-EPI)NonAf 37.22 Random Glucose 87 Calcium 8.5 Phosphorus 3.3 Magnesium 2.3 Total Bilirubin AST ALT Alkaline Phosphatase Creatine Kinase Troponin I Total Protein Albumin Urine Color Urine Appearance Urine pH Urine Protein Urine Glucose (UA) Urine Ketones Urine Blood Urine Nitrite Urine Bilirubin Urine Urobilinogen Ur Leukocyte Esterase Urine RBC Urine WBC Urine Bacteria Blood Type O POSITIVE Antibody Screen Negative Crossmatch See Detail Active Medications Generic Name Dose Route Start Last Admin Trade Name Freq PRN Reason Stop Dose Admin Acetaminophen 500 mg 11/16/19 11:06 Tylenol - PO Q6H PRN FEVER Ceftriaxone Sodium 1 gm/ 50 mls @ 200 mls/hr 11/16/19 10:00 11/16/19 09:18 Dextrose IVPB 200 mls/hr DAILY MARKY Administration Protocol Sodium Chloride 1,000 mls @ 75 mls/hr 11/16/19 08:45 11/16/19 09:18 Normal Saline - IV 11/16/19 22:04 75 mls/hr ASDIR MARKY Administration ASSESSMENT/PLAN: Mr. Hayden is 59M w a h/o colitis, prior appendectomy and abdominal hernia with mesh who presented with sury hematuria without flank pain. #anemia secondary to bladder mass - CT scan reveals [id number] bladder mass w hydronephrosis - patient on rosa draining hematuria - H/H improved with 2 units of PRBC - Hgb 8.5 from 6.6 - Monitor cbc - urology consulted Dr. Rasmussen - scheduled cystoscopy, with turbt evacuations of clotting - WBC elevated 11.9 for suspected obstructive UTI - UTI treatment - ceftriaxone - oncology on board appreciate recommendations - Dr. Tadeo #CKD stage III - BUN/Cr = 24/1.9 down from 32/2.2 #FEN - NPO after midnight #DVT - SCD Visit type - Emergency Visit Emergency Visit: Yes ED Registration Date: 11/16/19 Care time: The patient presented to the Emergency Department on the above date and was hospitalized for further evaluation of their emergent condition. - New Patient This patient is new to me today: Yes Date on this admission: 11/16/19 - Critical Care Critical Care patient: No - Discharge Referral Referred to [facility] Med P.C.: No ATTENDING PHYSICIAN STATEMENT I saw and evaluated the patient. I reviewed the resident's note and discussed the case with the resident. I agree with the resident's findings and plan as documented. SUBJECTIVE: OBJECTIVE: ASSESSMENT AND PLAN:
--- NOTE | 2019-11-16 17:29 | PN ---
Teaching Attending Note Name of Resident: Bernard Araya ATTENDING PHYSICIAN STATEMENT I saw and evaluated the patient. I reviewed the resident's note and discussed the case with the resident. I agree with the resident's findings and plan as documented. SUBJECTIVE: Feeling well. No abdominal pain. Ongoing hematuria via Zhu. No chest pain/palpitations/SOB/lightheadedness. OBJECTIVE: Afebrile, Hemodynamically Stable. Last Vital Signs Temp Pulse Resp BP Pulse Ox 98.5 F 83 18 117/74 97 11/16/19 16:30 11/16/19 16:30 11/16/19 16:30 11/16/19 16:30 11/16/19 16:30 HEENT - Atraumatic, Normocephalic. Heart - S1, S2, RRR Lungs - clear to auscultation Abdomen - Soft, non-tender. Bowel Sounds normal. - Hematuria via Zhu Extremities - no edema, no calf tenderness. Neuro - AAO x 3. Tone/Power normal. Laboratory Results - last 24 hr 11/15/19 11/15/19 11/15/19 18:22 18:25 18:25 WBC RBC Hgb Hct MCV MCH MCHC RDW Plt Count MPV Absolute Neuts (auto) Neutrophils % Lymphocytes % Monocytes % Eosinophils % Basophils % Hypochromia Platelet Estimate Anisocytosis Microcytosis Ovalocytes PT with INR 12.2 INR 1.09 PTT (Actin FS) 23.2 L Sodium 135 L Potassium 4.1 Chloride 108 H Carbon Dioxide 19 L Anion Gap 8 BUN 32.0 H Creatinine 2.2 H Est GFR (CKD-EPI)AfAm 36.13 Est GFR (CKD-EPI)NonAf 31.17 Random Glucose 119 H Calcium 8.4 L Phosphorus Magnesium Total Bilirubin 0.5 AST 17 ALT 16 Alkaline Phosphatase 58 Creatine Kinase 79 Troponin I Total Protein 6.5 Albumin 3.3 L Urine Color Red Urine Appearance Bloody Urine pH 6.0 Urine Protein 2+ H Urine Glucose (UA) Negative Urine Ketones Negative Urine Blood 3+ H Urine Nitrite Negative Urine Bilirubin Small Urine Urobilinogen 0.2 Ur Leukocyte Esterase Trace H Urine RBC >100 Urine WBC 2-5 Urine Bacteria Moderate Blood Type Antibody Screen Crossmatch 11/15/19 11/15/19 11/15/19 18:25 18:30 19:01 WBC 11.8 H RBC 3.40 L Hgb 6.6 L* Hct 21.7 L MCV 63.7 L MCH 19.3 L MCHC 30.3 L RDW 16.1 H Plt Count 404 MPV 7.5 Absolute Neuts (auto) 8.9 Neutrophils % 75.5 Lymphocytes % 13.1 Monocytes % 9.3 Eosinophils % 1.5 Basophils % 0.6 Hypochromia 3+ Platelet Estimate Slt increase Anisocytosis 1+ Microcytosis 3+ Ovalocytes 1+ PT with INR INR PTT (Actin FS) Sodium Potassium Chloride Carbon Dioxide Anion Gap BUN Creatinine Est GFR (CKD-EPI)AfAm Est GFR (CKD-EPI)NonAf Random Glucose Calcium Phosphorus Magnesium Total Bilirubin AST ALT Alkaline Phosphatase Creatine Kinase Troponin I < 0.03 Total Protein Albumin Urine Color Urine Appearance Urine pH Urine Protein Urine Glucose (UA) Urine Ketones Urine Blood Urine Nitrite Urine Bilirubin Urine Urobilinogen Ur Leukocyte Esterase Urine RBC Urine WBC Urine Bacteria Blood Type O POSITIVE Antibody Screen Negative Crossmatch 11/15/19 11/16/19 11/16/19 19:05 10:28 10:28 WBC 11.0 H RBC 3.62 L Hgb 7.7 L Hct 24.7 L D MCV 68.4 L MCH 21.2 L D MCHC 31.0 L RDW 19.6 H Plt Count 348 D MPV 8.5 D Absolute Neuts (auto) Neutrophils % Lymphocytes % Monocytes % Eosinophils % Basophils % Hypochromia Platelet Estimate Anisocytosis Microcytosis Ovalocytes PT with INR INR PTT (Actin FS) Sodium 141 Potassium 4.4 Chloride 114 H Carbon Dioxide 21 Anion Gap 6 L BUN 24.0 H Creatinine 1.9 H Est GFR (CKD-EPI)AfAm 43.14 Est GFR (CKD-EPI)NonAf 37.22 Random Glucose 87 Calcium 8.5 Phosphorus 3.3 Magnesium 2.3 Total Bilirubin AST ALT Alkaline Phosphatase Creatine Kinase Troponin I Total Protein Albumin Urine Color Urine Appearance Urine pH Urine Protein Urine Glucose (UA) Urine Ketones Urine Blood Urine Nitrite Urine Bilirubin Urine Urobilinogen Ur Leukocyte Esterase Urine RBC Urine WBC Urine Bacteria Blood Type O POSITIVE Antibody Screen Negative Crossmatch See Detail Current Medications Generic Name Dose Route Start Last Admin Trade Name Freq PRN Reason Stop Dose Admin Acetaminophen 500 mg 11/16/19 11:06 Tylenol - PO Q6H PRN FEVER Ceftriaxone Sodium 1 gm/ 50 mls @ 200 mls/hr 11/16/19 10:00 11/16/19 09:18 Dextrose IVPB 200 mls/hr DAILY MARKY Administration Protocol Sodium Chloride 1,000 mls @ 75 mls/hr 11/16/19 08:45 11/16/19 09:18 Normal Saline - IV 11/16/19 22:04 75 mls/hr ASDIR MARKY Administration Home Medications Medication Instructions Recorded NK [No Known Home Medication] 08/27/16 ASSESSMENT AND PLAN: 59 year old male with history of colitis, s/p prior appendectomy and abdominal hernia repair with mesh, presents with sury hematuria, dysuria for [address] Abdomen - [id number] non-calcific soft tissue lesion in the right lateral half of bladder, mild to moderate hydro. 1. Acute Blood Loss Anemia secondary to Bladder Mass Being transfused 2 units PRBCs. Monitor CBC Bladder irrigation as per Urology Urology scheduled cystoscopy, TURBT, clot evacuation, Bladder Mass Bx tomorrow. Empirically treated for UTI with Ceftriaxone pending Urine Cx result. Oncology consulted. 2. CKD 3 - Stable. Maintain IV hydration. DVT Px - SCDs. Heparin held due to sury hematuria.
[2019-11-16 18:35] LABS: HEMATOCRIT 27.6 % (35.4-49); HEMOGLOBIN 8.5 GM/dL (11.7-16.9); MCH 21.7 pg (25.7-33.7); MCHC 30.9 g/dl (32.0-35.9); MEAN CELL VOLUME 70.3 fl (80-96); MEAN PLT VOLUME 8.5 fl (7.5-11.1); PLATELET COUNT 366 K/MM3 (134-434); RBC 3.93 M/mm3 (4.00-5.60); RDW 21.1 % (11.9-15.9); WHITE BLOOD COUNT 11.9 K/mm3 (4.0-10.0)
[2019-11-17] MEDS: SODIUM CHLORIDE 1,000 ML IV SCH ×2 (03:00→16:27)
[2019-11-17 08:09] LABS: HEMOGLOBIN 8.4 GM/dL (11.7-16.9); MCH 21.8 pg (25.7-33.7); MEAN CELL VOLUME 70.2 fl (80-96); MEAN PLT VOLUME 8.3 fl (7.5-11.1); PLATELET COUNT 335 K/MM3 (134-434); RBC 3.85 M/mm3 (4.00-5.60)
[2019-11-17 08:30] LABS: CALCIUM 7.9 mg/dL (8.5-10.1); CREATININE 1.9 mg/dL (0.55-1.3); MAGNESIUM 2.2 mg/dL (1.8-2.4); PHOSPHOROUS 2.9 mg/dL (2.5-4.9); POTASSIUM 4.4 mmol/L (3.5-5.1)
[2019-11-17] MEDS ORDERED: DEXTROSE 5%-WATER - 50 ML IVPB ONE (10:42)
[2019-11-17] MEDS ORDERED: cefTRIAXone SODIUM 1 GM VIAL ONE (10:42)
[2019-11-17] MEDS: CEFTRIAXONE 1 GM in DEXTROSE 5%-WATER - 50 ML IVPB SCH (10:46)
--- NOTE | 2019-11-17 15:45 | PN ---
Teaching Attending Note Name of Resident: Bernard Araya ATTENDING PHYSICIAN STATEMENT I saw and evaluated the patient. I reviewed the resident's note and discussed the case with the resident. I agree with the resident's findings and plan as documented. SUBJECTIVE: Feeling well. No abdominal pain. Ongoing hematuria via Zhu. No fevers/chills. OBJECTIVE: Afebrile, Hemodynamically Stable. Last Vital Signs Temp Pulse Resp BP Pulse Ox 98.4 F 77 18 143/90 99 11/17/19 11:34 11/17/19 11:34 11/17/19 11:34 11/17/19 11:34 11/17/19 11:34 Heart - S1, S2, RRR Lungs - clear to auscultation Abdomen - Soft, non-tender. Bowel Sounds normal. - Hematuria via Zhu Extremities - no edema, no calf tenderness. Neuro - AAO x 3. Tone/Power normal. Laboratory Results - last 24 hr 11/15/19 11/16/19 11/17/19 22:55 17:18 07:25 WBC 11.9 H 12.0 H RBC 3.93 L 3.85 L Hgb 8.5 L 8.4 L Hct 27.6 L 27.0 L MCV 70.3 L 70.2 L MCH 21.7 L 21.8 L MCHC 30.9 L 31.0 L RDW 21.1 H 21.0 H Plt Count 366 335 MPV 8.5 8.3 Sodium Potassium Chloride Carbon Dioxide Anion Gap BUN Creatinine Est GFR (CKD-EPI)AfAm Est GFR (CKD-EPI)NonAf Random Glucose Calcium Phosphorus Magnesium COVID-19 (LARRY) Not detected 11/17/19 07:25 WBC RBC Hgb Hct MCV MCH MCHC RDW Plt Count MPV Sodium 144 Potassium 4.4 Chloride 116 H Carbon Dioxide 22 Anion Gap 6 L BUN 22.0 H Creatinine 1.9 H Est GFR (CKD-EPI)AfAm 43.14 Est GFR (CKD-EPI)NonAf 37.22 Random Glucose 100 Calcium 7.9 L Phosphorus 2.9 Magnesium 2.2 COVID-19 (LARRY) Current Medications Generic Name Dose Route Start Last Admin Trade Name Freq PRN Reason Stop Dose Admin Acetaminophen 500 mg 11/16/19 11:06 Tylenol - PO Q6H PRN FEVER Ceftriaxone Sodium 1 gm/ 50 mls @ 200 mls/hr 11/16/19 10:00 11/17/19 10:46 Dextrose IVPB 200 mls/hr DAILY MARKY Administration Protocol Sodium Chloride 1,000 mls @ 75 mls/hr 11/17/19 02:45 11/17/19 03:00 Normal Saline - IV 75 mls/hr ASDIR MARKY Administration Home Medications Medication Instructions Recorded NK [No Known Home Medication] 08/27/16 ASSESSMENT AND PLAN: 59 year old male with history of colitis, s/p prior appendectomy and abdominal hernia repair with mesh, presents with sury hematuria, dysuria for [address] Abdomen - [id number] non-calcific soft tissue lesion in the right lateral half of bladder, mild to moderate hydro. 1. Acute Blood Loss Anemia secondary to Bladder Mass H/H 8.08/15 s/p 2 units PRBCs. Monitor CBC Bladder irrigation as per Urology Urology scheduled cystoscopy, TURBT, clot evacuation, Bladder Mass Bx for 11/17 (cancelled 11/16 due to pending CPOVID Status) Empirically treated for UTI with Ceftriaxone - will discontinue as Urine Cx negative. Oncology consulted. 2. CKD 3 - Stable. Maintain IV hydration. DVT Px - SCDs. Heparin held due to sury hematuria.
[2019-11-17 16:07] LABS: BASO % 0.7 % (0-2.0); EOS % 2.1 % (0-4.5); HEMATOCRIT 27.1 % (35.4-49); HEMOGLOBIN 8.4 GM/dL (11.7-16.9); LYMPH % 11.4 % (8-40); MCH 21.8 pg (25.7-33.7); MCHC 31.1 g/dl (32.0-35.9); MEAN CELL VOLUME 70.1 fl (80-96); MEAN PLT VOLUME 7.8 fl (7.5-11.1); MONO % 11.1 % (3.8-10.2); NEUT % 74.7 % (42.8-82.8); PLATELET COUNT 323 K/MM3 (134-434); RBC 3.87 M/mm3 (4.00-5.60); RDW 21.2 % (11.9-15.9); WHITE BLOOD COUNT 11.5 K/mm3 (4.0-10.0)
--- NOTE | 2019-11-17 18:12 | PN ---
Physical Exam: SUBJECTIVE: Patient seen and examined at bedside. Patient has no complaints and does not endorse any acute overnight events. OBJECTIVE: Vital Signs Period Temp Pulse Resp BP Sys/Beltran Pulse Ox Last 24 Hr 98.1 F-98.6 F 77-93 16-18 123-143/74-91 95-99 GENERAL: The patient is awake, alert, and fully oriented, in no acute distress. NECK: Trachea midline, full range of motion, supple. LUNGS: Breath sounds equal, clear to auscultation bilaterally, no wheezes, no crackles, no accessory muscle use. HEART: Regular rate and rhythm, S1, S2 without murmur, rub or gallop. ABDOMEN: Soft, nontender, nondistended, normoactive bowel sounds, no guarding, no rebound, no hepatosplenomegaly, no masses. EXTREMITIES: 2+ pulses, warm, well-perfused, no edema. Laboratory Results - last 24 hr 11/15/19 11/16/19 11/17/19 22:55 17:18 07:25 WBC 11.9 H 12.0 H RBC 3.93 L 3.85 L Hgb 8.5 L 8.4 L Hct 27.6 L 27.0 L MCV 70.3 L 70.2 L MCH 21.7 L 21.8 L MCHC 30.9 L 31.0 L RDW 21.1 H 21.0 H Plt Count 366 335 MPV 8.5 8.3 Absolute Neuts (auto) Neutrophils % Lymphocytes % Monocytes % Eosinophils % Basophils % Nucleated RBC % Sodium Potassium Chloride Carbon Dioxide Anion Gap BUN Creatinine Est GFR (CKD-EPI)AfAm Est GFR (CKD-EPI)NonAf Random Glucose Calcium Phosphorus Magnesium COVID-19 (LARRY) Not detected 11/17/19 11/17/19 07:25 15:45 WBC 11.5 H RBC 3.87 L Hgb 8.4 L Hct 27.1 L MCV 70.1 L MCH 21.8 L MCHC 31.1 L RDW 21.2 H Plt Count 323 MPV 7.8 Absolute Neuts (auto) 8.6 H Neutrophils % 74.7 Lymphocytes % 11.4 D Monocytes % 11.1 H D Eosinophils % 2.1 D Basophils % 0.7 Nucleated RBC % 0 Sodium 144 Potassium 4.4 Chloride 116 H Carbon Dioxide 22 Anion Gap 6 L BUN 22.0 H Creatinine 1.9 H Est GFR (CKD-EPI)AfAm 43.14 Est GFR (CKD-EPI)NonAf 37.22 Random Glucose 100 Calcium 7.9 L Phosphorus 2.9 Magnesium 2.2 COVID-19 (LARRY) Active Medications Generic Name Dose Route Start Last Admin Trade Name Freq PRN Reason Stop Dose Admin Acetaminophen 500 mg 11/16/19 11:06 Tylenol - PO Q6H PRN FEVER Ceftriaxone Sodium 1 gm/ 50 mls @ 200 mls/hr 11/16/19 10:00 11/17/19 10:46 Dextrose IVPB 200 mls/hr DAILY MARKY Administration Protocol Sodium Chloride 1,000 mls @ 75 mls/hr 11/17/19 02:45 11/17/19 16:27 Normal Saline - IV 75 mls/hr ASDIR MARKY Administration ASSESSMENT/PLAN: Mr. Hayden is 59M w a h/o colitis, prior appendectomy and abdominal hernia with mesh who presented with sury hematuria without flank pain. #anemia secondary to bladder mass - CT scan reveals [id number] bladder mass w hydronephrosis - patient on rosa draining hematuria - patient received clot irrigation in the morning with urology - H/H stabilized at 8.4 - Cystoscopy is rescheduled for tomorrow pending covid status - Monitor cbc - UTI treatment - CX negative - oncology on board appreciate recommendations - Dr. Tadeo #CKD stage III - BUN/Cr = currently 22/1.9 from 24/1.9 from 32/2.2 #FEN - continued NPO after midnight #DVT - SCD Visit type - Emergency Visit Emergency Visit: Yes ED Registration Date: 11/16/19 Care time: The patient presented to the Emergency Department on the above date and was hospitalized for further evaluation of their emergent condition. - New Patient This patient is new to me today: No - Critical Care Critical Care patient: No - Discharge Referral Referred to [facility] Med P.C.: No ATTENDING PHYSICIAN STATEMENT I saw and evaluated the patient. I reviewed the resident's note and discussed the case with the resident. I agree with the resident's findings and plan as documented. SUBJECTIVE: OBJECTIVE: ASSESSMENT AND PLAN:
[2019-11-18] MEDS: SODIUM CHLORIDE 1,000 ML IV SCH (05:44)
[2019-11-18 09:05] LABS: HEMATOCRIT 28.3 % (35.4-49); HEMOGLOBIN 8.7 GM/dL (11.7-16.9); MCH 21.5 pg (25.7-33.7); MCHC 30.7 g/dl (32.0-35.9); MEAN CELL VOLUME 70.1 fl (80-96); MEAN PLT VOLUME 8.1 fl (7.5-11.1); PLATELET COUNT 335 K/MM3 (134-434); RBC 4.04 M/mm3 (4.00-5.60); RDW 21.5 % (11.9-15.9); WHITE BLOOD COUNT 12.5 K/mm3 (4.0-10.0)
[2019-11-18 09:28] LABS: BLOOD UREA NITROGEN 21.4 mg/dL (7-18); CALCIUM 8.2 mg/dL (8.5-10.1); CREATININE 1.9 mg/dL (0.55-1.3); MAGNESIUM 2.3 mg/dL (1.8-2.4); PHOSPHOROUS 3.4 mg/dL (2.5-4.9); POTASSIUM 4.6 mmol/L (3.5-5.1)
[2019-11-18] MEDS ORDERED: MIDAZOLAM HCL 2 MG/2 ML SINGLE DOSE VIAL ONE (10:45)
[2019-11-18] MEDS ORDERED: DEXAMETHASONE SOD PHOSPHATE 4 MG/1 ML VIAL ONE (10:58)
[2019-11-18] MEDS ORDERED: ONDANSETRON 4 MG/2 ML VIAL IVPUSH PRN (11:37)
--- NOTE | 2019-11-18 12:05 | PN ---
Physical Exam: SUBJECTIVE: Patient seen and examined. No acute complaints, Pt. for cystoscopy today. OBJECTIVE: Vital Signs Period Temp Pulse Resp BP Sys/Beltran Pulse Ox Last 24 Hr 98.3 F-98.8 F 74-97 18-18 121-137/74-87 97-102 GENERAL: Awake, alert, and fully oriented, in no acute distress. HEAD: Normal with no signs of trauma. EYES: Sclera anicteric, conjunctiva clear. EARS, NOSE, THROAT: Ears normal, nares patent, oropharynx clear without exudates. Moist mucous membranes. LUNGS: Breath sounds equal, clear to auscultation bilaterally. No wheezes, and no crackles. No accessory muscle use. HEART: Regular rate and rhythm, normal S1 and S2 without murmur ABDOMEN: Soft, nontender, not distended, normoactive bowel sounds, no guarding, no rebound, no masses. Zhu draining red urine. MUSCULOSKELETAL: Normal range of motion at all joints. UPPER EXTREMITIES: warm, well-perfused. No cyanosis. No peripheral edema. LOWER EXTREMITIES: 2+ dorsal pedal pulses, warm, well-perfused. No calf tenderness. No peripheral edema. NEUROLOGICAL: Normal speech. Gait not assessed PSYCHIATRIC: Cooperative. Good eye contact. Appropriate mood and affect. SKIN: Warm, dry, normal turgor, no rashes or lesions noted. Laboratory Results - last 24 hr 11/15/19 11/17/19 11/18/19 22:55 15:45 08:00 WBC 11.5 H 12.5 H RBC 3.87 L 4.04 Hgb 8.4 L 8.7 L Hct 27.1 L 28.3 L MCV 70.1 L 70.1 L MCH 21.8 L 21.5 L MCHC 31.1 L 30.7 L RDW 21.2 H 21.5 H Plt Count 323 335 MPV 7.8 8.1 Absolute Neuts (auto) 8.6 H Neutrophils % 74.7 Lymphocytes % 11.4 D Monocytes % 11.1 H D Eosinophils % 2.1 D Basophils % 0.7 Nucleated RBC % 0 Sodium Potassium Chloride Carbon Dioxide Anion Gap BUN Creatinine Est GFR (CKD-EPI)AfAm Est GFR (CKD-EPI)NonAf Random Glucose Calcium Phosphorus Magnesium COVID-19 (LARRY) Not detected 11/18/19 08:00 WBC RBC Hgb Hct MCV MCH MCHC RDW Plt Count MPV Absolute Neuts (auto) Neutrophils % Lymphocytes % Monocytes % Eosinophils % Basophils % Nucleated RBC % Sodium 144 Potassium 4.6 Chloride 116 H Carbon Dioxide 22 Anion Gap 6 L BUN 21.4 H Creatinine 1.9 H Est GFR (CKD-EPI)AfAm 43.14 Est GFR (CKD-EPI)NonAf 37.22 Random Glucose 86 Calcium 8.2 L Phosphorus 3.4 Magnesium 2.3 COVID-19 (LARRY) Active Medications Generic Name Dose Route Start Last Admin Trade Name Freq PRN Reason Stop Dose Admin Acetaminophen 500 mg 11/16/19 11:06 Tylenol - PO Q6H PRN FEVER Fentanyl 25 mcg 11/18/19 11:37 Sublimaze Injection - IVPUSH 11/18/19 18:00 [id number] PRN PAIN-PACU ORDER X 4 DOSES ONLY Fentanyl 50 mcg 11/18/19 11:37 Sublimaze Injection - IVPUSH 11/18/19 18:00 [id number] PRN PAIN-PACU ORDER X 4 DOSES ONLY Sodium Chloride 1,000 mls @ 75 mls/hr 11/17/19 02:45 11/18/19 05:44 Normal Saline - IV 75 mls/hr ASDIR MARKY Administration Lactated Ringer's 1,000 mls @ 75 mls/hr 11/18/19 11:45 Lactated Ringers Solution IV ASDIR MARKY Ondansetron HCl 4 mg 11/18/19 11:37 Zofran Injection IVPUSH 11/19/19 11:36 Q6H PRN NAUSEA AND/OR VOMITING ASSESSMENT/PLAN: Pt. is a 59 y.o. M w/ PMHx. of colitis when he was younger (had colonoscopy then but does not remember the details - has not had one in over 5 years however he believes they were negative) presents with hematuria for the last 2 weeks. #Bladder Mass w/ Hematuria CT A/P without contrast: 5x5x5 cm bladder mass in the lateral right half with mild to moderate hydroureteronephrosis, with mild soft tisue stranding, mild L. renal atrophy w/ cortical scarring and possible R. multifocal cortical scarring; punctate calcification of posterior GB wall Urology consult appreciated--> Pt. for cysoscopy with biopsy Pt. received 2 units pRBCs, HgB stable at 8.7 Anemia likely related to the acute blood loss over the last 2 weeks. Recommend surgical consult for GB pathology? (punctate calcification) Visit type - Emergency Visit Emergency Visit: Yes ED Registration Date: 11/16/19 Care time: The patient presented to the Emergency Department on the above date and was hospitalized for further evaluation of their emergent condition. - New Patient This patient is new to me today: No - Critical Care Critical Care patient: No - Discharge Referral Referred to [facility] Med P.C.: No ATTENDING PHYSICIAN STATEMENT I saw and evaluated the patient. I reviewed the resident's note and discussed the case with the resident. I agree with the resident's findings and plan as documented. SUBJECTIVE: OBJECTIVE: ASSESSMENT AND PLAN:
[2019-11-18] MEDS: LACTATED RINGERS SOLUTION 1,000 ML IV SCH ×2 (13:15→13:31)
[2019-11-18] MEDS ORDERED: oxyCODONE HCL 5 MG TABLET PO PRN ×2 (13:17)
[2019-11-18] MEDS ORDERED: cefTRIAXone SODIUM 1 GM VIAL ONE (13:25)
[2019-11-18] MEDS ORDERED: DEXTROSE 5%-WATER - 50 ML IVPB ONE (13:25)
--- NOTE | 2019-11-18 13:48 | OP ---
Operative Note - Note: Operative Date: 11/18/19 Pre-Operative Diagnosis: Bladder tumor Operation: TURBT Surgeon: Randolph Rasmussen MD. Anesthesia: General Estimated Blood Loss (mls): 15
[2019-11-18] MEDS ORDERED: CEFTRIAXONE 1 GM in DEXTROSE 5%-WATER - 50 ML IVPB ONE (14:00)
--- NOTE | 2019-11-18 15:14 | PN ---
Teaching Attending Note Name of Resident: Bernard Araya ATTENDING PHYSICIAN STATEMENT I saw and evaluated the patient. I reviewed the resident's note and discussed the case with the resident. I agree with the resident's findings and plan as documented. SUBJECTIVE: OBJECTIVE: Afebrile, Hemodynamically Stable. Last Vital Signs Temp Pulse Resp BP Pulse Ox 97.7 F 66 18 122/78 95 11/18/19 13:30 11/18/19 13:30 11/18/19 13:30 11/18/19 13:30 11/18/19 13:30 Heart - S1, S2, RRR Lungs - clear to auscultation Abdomen - Soft, non-tender. Bowel Sounds normal. - Hematuria via Zhu Extremities - no edema, no calf tenderness. Neuro - AAO x 3. Tone/Power normal. Laboratory Results - last 24 hr 11/17/19 11/18/19 11/18/19 15:45 08:00 08:00 WBC 11.5 H 12.5 H RBC 3.87 L 4.04 Hgb 8.4 L 8.7 L Hct 27.1 L 28.3 L MCV 70.1 L 70.1 L MCH 21.8 L 21.5 L MCHC 31.1 L 30.7 L RDW 21.2 H 21.5 H Plt Count 323 335 MPV 7.8 8.1 Absolute Neuts (auto) 8.6 H Neutrophils % 74.7 Lymphocytes % 11.4 D Monocytes % 11.1 H D Eosinophils % 2.1 D Basophils % 0.7 Nucleated RBC % 0 Sodium 144 Potassium 4.6 Chloride 116 H Carbon Dioxide 22 Anion Gap 6 L BUN 21.4 H Creatinine 1.9 H Est GFR (CKD-EPI)AfAm 43.14 Est GFR (CKD-EPI)NonAf 37.22 Random Glucose 86 Calcium 8.2 L Phosphorus 3.4 Magnesium 2.3 Current Medications Generic Name Dose Route Start Last Admin Trade Name Freq PRN Reason Stop Dose Admin Acetaminophen 500 mg 11/16/19 11:06 Tylenol - PO Q6H PRN FEVER Fentanyl 25 mcg 11/18/19 11:37 Sublimaze Injection - IVPUSH 11/18/19 18:00 [id number] PRN PAIN-PACU ORDER X 4 DOSES ONLY Fentanyl 50 mcg 11/18/19 11:37 11/18/19 12:30 Sublimaze Injection - IVPUSH 11/18/19 18:00 50 mcg [id number] PRN Administration PAIN-PACU ORDER X 4 DOSES ONLY Parenteral Electrolytes 1,000 mls @ 75 mls/hr 11/18/19 13:45 Plasma-Lyte 148 - IV ASDIR MARKY Ondansetron HCl 4 mg 11/18/19 11:37 11/18/19 13:30 Zofran Injection IVPUSH 11/19/19 11:36 4 mg Q6H PRN Administration NAUSEA AND/OR VOMITING Oxycodone HCl 5 mg 11/18/19 13:17 Roxicodone - PO Q4H PRN PAIN SCALE 3-5 Oxycodone HCl 10 mg 11/18/19 13:17 Roxicodone - PO Q4H PRN PAIN SCALE 6-10 Home Medications Medication Instructions Recorded NK [No Known Home Medication] 08/27/16 ASSESSMENT AND PLAN: 59 year old male with history of colitis, s/p prior appendectomy and abdominal hernia repair with mesh, presents with sury hematuria, dysuria for [address] Abdomen - [id number] non-calcific soft tissue lesion in the right lateral half of bladder, mild to moderate hydro, mild soft tissue stranding, punctate calcification of posterior GB wall ?porcelain GB 1. Acute Blood Loss Anemia secondary to Bladder Mass H/H 8.7/28.3 s/p 2 units PRBCs. Immediately post-op s/p cystoscopy, TURBT, clot evacuation, Bladder Mass Bx Bladder irrigation as per Urology Empirically treated for UTI with Ceftriaxone - discontinued as Urine Cx negative. Oncology consulted. 2. CKD 3 - Stable. Continue IV hydration. 3. Punctate Calcification posterior GB Wall - no acute pathology currently, LFTs normal, will order Abdominal US DVT Px - SCDs. Heparin held due to sury hematuria.
--- NOTE | 2019-11-18 16:18 | PN ---
Physical Exam: SUBJECTIVE: Patient seen and examined at bedside. Patient was NPO awaiting for cystoscopy at 10am. Patient denies acute overnight events. OBJECTIVE: Vital Signs Period Temp Pulse Resp BP Sys/Beltran Pulse Ox Last 24 Hr 97.7 F-98.8 F 62-97 13-18 119-137/68-87 95-102 GENERAL: The patient is awake, alert, and fully oriented, in no acute distress. LUNGS: Breath sounds equal, clear to auscultation bilaterally, no wheezes, no crackles, no accessory muscle use. HEART: Regular rate and rhythm, S1, S2 without murmur, rub or gallop. ABDOMEN: Soft, nontender, nondistended, normoactive bowel sounds, no guarding, no rebound, no hepatosplenomegaly, no masses. EXTREMITIES: 2+ pulses, warm, well-perfused, no edema. Laboratory Results - last 24 hr 11/17/19 11/18/19 11/18/19 15:45 08:00 08:00 WBC 11.5 H 12.5 H RBC 3.87 L 4.04 Hgb 8.4 L 8.7 L Hct 27.1 L 28.3 L MCV 70.1 L 70.1 L MCH 21.8 L 21.5 L MCHC 31.1 L 30.7 L RDW 21.2 H 21.5 H Plt Count 323 335 MPV 7.8 8.1 Absolute Neuts (auto) 8.6 H Neutrophils % 74.7 Lymphocytes % 11.4 D Monocytes % 11.1 H D Eosinophils % 2.1 D Basophils % 0.7 Nucleated RBC % 0 Sodium 144 Potassium 4.6 Chloride 116 H Carbon Dioxide 22 Anion Gap 6 L BUN 21.4 H Creatinine 1.9 H Est GFR (CKD-EPI)AfAm 43.14 Est GFR (CKD-EPI)NonAf 37.22 Random Glucose 86 Calcium 8.2 L Phosphorus 3.4 Magnesium 2.3 Active Medications Generic Name Dose Route Start Last Admin Trade Name Freq PRN Reason Stop Dose Admin Acetaminophen 500 mg 11/16/19 11:06 Tylenol - PO Q6H PRN FEVER Fentanyl 25 mcg 11/18/19 11:37 Sublimaze Injection - IVPUSH 11/18/19 18:00 [id number] PRN PAIN-PACU ORDER X 4 DOSES ONLY Fentanyl 50 mcg 11/18/19 11:37 11/18/19 12:30 Sublimaze Injection - IVPUSH 11/18/19 18:00 50 mcg [id number] PRN Administration PAIN-PACU ORDER X 4 DOSES ONLY Parenteral Electrolytes 1,000 mls @ 75 mls/hr 11/18/19 13:45 Plasma-Lyte 148 - IV ASDIR MARKY Ondansetron HCl 4 mg 11/18/19 11:37 11/18/19 13:30 Zofran Injection IVPUSH 11/19/19 11:36 4 mg Q6H PRN Administration NAUSEA AND/OR VOMITING Oxycodone HCl 5 mg 11/18/19 13:17 Roxicodone - PO Q4H PRN PAIN SCALE 3-5 Oxycodone HCl 10 mg 11/18/19 13:17 Roxicodone - PO Q4H PRN PAIN SCALE 6-10 ASSESSMENT/PLAN: Mr. Hayden is 59M w a h/o colitis, prior appendectomy and abdominal hernia with mesh who presented with sury hematuria without flank pain. #anemia secondary to bladder mass - CT scan reveals [id number] bladder mass w hydronephrosis - patient on rosa draining hematuria - H/H stabilized at 8.7/28.3 s/p 2 units PRBCs. - Cystoscopy scheduled today - UTI treatment - CX negative - oncology on board appreciate recommendations - Dr. Tadeo #CKD stage III - BUN/Cr = currently 22/1.9 from 24/1.9 from 32/2.2 # GB wall found to have small area of punctate calcifications - follow with abdominal US - LFT normal #DVT - SCD Visit type - Emergency Visit Emergency Visit: Yes ED Registration Date: 11/16/19 Care time: The patient presented to the Emergency Department on the above date and was hospitalized for further evaluation of their emergent condition. - New Patient This patient is new to me today: No - Critical Care Critical Care patient: No - Discharge Referral Referred to [facility] Med P.C.: No ATTENDING PHYSICIAN STATEMENT I saw and evaluated the patient. I reviewed the resident's note and discussed the case with the resident. I agree with the resident's findings and plan as documented. SUBJECTIVE: OBJECTIVE: ASSESSMENT AND PLAN:
[2019-11-18] MEDS: ELECTROLYTE-148 SOLN 1,000 ML IV SCH (17:07)
--- NOTE | 2019-11-18 19:07 | OP ---
DATE OF OPERATION: 11/18/2019 PREOPERATIVE DIAGNOSIS: Bladder tumor large. POSTOPERATIVE DIAGNOSIS: Bladder tumor large. PROCEDURE: Transurethral resection of bladder tumor. HISTORY: This is a 59-year-old gentleman who states he had hematuria only recently. The patient presented to the hospital with severe anemia with a hemoglobin of 6.8, and noted to have a 5-cm bladder tumor with right hydronephrosis obstructing from the tumor. The patient was given 2-unit blood transfusion and was admitted. The patient then was instructed of his large mass and consented for TURBT. BRIEF OPERATIVE NOTE: The patient is brought in the operating room, placed in supine position. When general anesthesia was administered, the patient was transferred to dorsal lithotomy position. Prepped and draped in standard sterile fashion. Intravenous antibiotics were given. A timeout was performed. At this time a 24-[place] cystoscope sheath was placed into the bladder under direct vision. The tumor was massive and basically occupying approximately 75% of the bladder. It was somewhat difficult to get the scope past the edge of the bladder tumor. the inferior part was resected believed to be the muscle layer. The base of the resection area was cauterized. The area was cauterized due to the fact that it was most likely a muscle-invasive tumor causing hydronephrosis and due to the difficulty of the resection and the tumor basically be unresectable endoscopically. The specimen was then given off, and a 24-[place] CBI catheter was placed and was draining blood-tinged urine. At this time the patient was brought to recovery in stable satisfactory condition. Tramaine [id number]
[2019-11-19] MEDS: ELECTROLYTE-148 SOLN 1,000 ML IV SCH ×3 (06:31→21:56)
[2019-11-19 08:35] LABS: HEMATOCRIT 29.8 % (35.4-49); HEMOGLOBIN 9.1 GM/dL (11.7-16.9); MCH 21.7 pg (25.7-33.7); MCHC 30.6 g/dl (32.0-35.9); MEAN CELL VOLUME 70.7 fl (80-96); MEAN PLT VOLUME 8.3 fl (7.5-11.1); PLATELET COUNT 342 K/MM3 (134-434); RBC 4.22 M/mm3 (4.00-5.60); RDW 21.9 % (11.9-15.9); WHITE BLOOD COUNT 18.6 K/mm3 (4.0-10.0)
[2019-11-19 08:46] LABS: CALCIUM 8.3 mg/dL (8.5-10.1); CREATININE 1.9 mg/dL (0.55-1.3); MAGNESIUM 2.3 mg/dL (1.8-2.4); PHOSPHOROUS 4.1 mg/dL (2.5-4.9); POTASSIUM 4.8 mmol/L (3.5-5.1)
--- NOTE | 2019-11-19 10:15 | PN ---
Progress Note (short form) - Note Progress Note: patient is comfortable urine is clear on CBI had some clots overnight awaiting path continue CBI today
[2019-11-19] MEDS ORDERED: PT OWN MED DRAWER 7, Y5N ONE (10:34)
[2019-11-19] MEDS ORDERED: BISACODYL 10 MG SUPP.RECT PR ONE (13:29)
[2019-11-19] MEDS: DOCUSATE SODIUM 100 MG CAPSULE (FP) PO SCH ×2 (13:53→22:03)
--- NOTE | 2019-11-19 13:59 | PN ---
Progress Note (short form) - Note Progress Note: POD #1 s/p TURBT under GA. Doing well, all questions answered.
--- NOTE | 2019-11-19 14:31 | PATH ---
Surgical Pathology Report Patient Name: TAO VELAZQUEZ Med. Rec. 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 SCANT MUSCULARIS PROPRIA IDENTIFIED. NO FLAT CARCINOMA IN SITU (CIS) IDENTIFIED. Comment: Case seen in intradepartmental review with consensus on diagnosis. Findings discussed with Dr. Fournier, 11/19/19. Electronically Signed Kalli Ayala M.D. Gross Description Received in formalin labeled "bladder tumor" are multiple fragments of white-winkler, focally hemorrhagic tissue measuring 2 x 1.5 x 0.3 cm in aggregate. The entire specimen submitted in one cassette. MLSZ/11/18/2019 sanml/11/18/2019
--- NOTE | 2019-11-19 15:53 | PN ---
Teaching Attending Note Name of Resident: Bernard Araya ATTENDING PHYSICIAN STATEMENT I saw and evaluated the patient. I reviewed the resident's note and discussed the case with the resident. I agree with the resident's findings and plan as documented. SUBJECTIVE: Feeling well - no abdominal pain. Had some clots overnight requiring flushing of rosa. OBJECTIVE: Afebrile, Hemodynamically Stable. CBI ongoing. Last Vital Signs Temp Pulse Resp BP Pulse Ox 98.5 F 90 18 122/79 95 11/19/19 15:00 11/19/19 15:00 11/19/19 15:00 11/19/19 15:00 11/19/19 15:00 Heart - S1, S2, RRR Lungs - clear to auscultation Abdomen - Soft, non-tender. Bowel Sounds normal. - CBI ongoing. Mild pink tinged urine. Extremities - no edema, no calf tenderness. Neuro - AAO x 3. Tone/Power normal. Laboratory Results - last 24 hr 11/15/19 11/19/19 11/19/19 19:05 07:45 07:45 WBC 18.6 H RBC 4.22 Hgb 9.1 L Hct 29.8 L MCV 70.7 L MCH 21.7 L MCHC 30.6 L RDW 21.9 H Plt Count 342 MPV 8.3 Sodium 141 Potassium 4.8 Chloride 111 H Carbon Dioxide 20 L Anion Gap 10 BUN 21.0 H Creatinine 1.9 H Est GFR (CKD-EPI)AfAm 43.14 Est GFR (CKD-EPI)NonAf 37.22 Random Glucose 97 Calcium 8.3 L Phosphorus 4.1 Magnesium 2.3 Blood Type O POSITIVE Antibody Screen Negative Crossmatch See Detail Current Medications Generic Name Dose Route Start Last Admin Trade Name Freq PRN Reason Stop Dose Admin Acetaminophen 500 mg 11/16/19 11:06 Tylenol - PO Q6H PRN FEVER Docusate Sodium 100 mg 11/19/19 13:30 11/19/19 13:53 Colace - PO 100 mg BID MARKY Administration Parenteral Electrolytes 1,000 mls @ 75 mls/hr 11/18/19 13:45 11/19/19 13:53 Plasma-Lyte 148 - IV Not Given ASDIR MARKY Oxycodone HCl 5 mg 11/18/19 13:17 Roxicodone - PO Q4H PRN PAIN SCALE 3-5 Oxycodone HCl 10 mg 11/18/19 13:17 Roxicodone - PO Q4H PRN PAIN SCALE 6-10 Home Medications Medication Instructions Recorded NK [No Known Home Medication] 08/27/16 ASSESSMENT AND PLAN: 59 year old male with history of colitis, s/p prior appendectomy and abdominal hernia repair with mesh, presents with sury hematuria, dysuria for [address] Abdomen - [id number] non-calcific soft tissue lesion in the right lateral half of bladder, mild to moderate hydrouretonephrosis, mild soft tissue stranding, punctate calcification of posterior GB wall ?porcelain GB 1. Acute Blood Loss Anemia secondary to Bladder Mass H/H 9.1/29.8 s/p 2 units PRBCs. POD 1 s/p cystoscopy, TURBT, clot evacuation, Bladder Mass Bx. 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 WBC elevated post-op, will monitor. Oncology consulted - awaiting further recommendations. Urology following for further recommendations. 2. CKD 3 - Stable. 3. Punctate Calcification posterior GB Wall, likely polyps on Abdominal US - no acute pathology currently, LFTs normal. For outpatient Surgery evaluation. DVT Px - SCDs. Heparin held due to sury hematuria on presentation.
--- NOTE | 2019-11-19 17:00 | PN ---
Physical Exam: SUBJECTIVE: Patient seen and examined OBJECTIVE: Vital Signs Period Temp Pulse Resp BP Sys/Beltran Pulse Ox Last 24 Hr 97.6 F-99.0 F 62-90 18-18 113-152/75-87 94-98 GENERAL: The patient is awake, alert, and fully oriented, in no acute distress. HEAD: Normal with no signs of trauma. EYES: PERRL, extraocular movements intact, sclera anicteric, conjunctiva clear. No ptosis. ENT: Ears normal, nares patent, oropharynx clear without exudates, moist mucous membranes. NECK: Trachea midline, full range of motion, supple. LUNGS: Breath sounds equal, clear to auscultation bilaterally, no wheezes, no crackles, no accessory muscle use. HEART: Regular rate and rhythm, S1, S2 without murmur, rub or gallop. ABDOMEN: Soft, nontender, nondistended, normoactive bowel sounds, no guarding, no rebound, no hepatosplenomegaly, no masses. EXTREMITIES: 2+ pulses, warm, well-perfused, no edema. NEUROLOGICAL: Cranial nerves II through XII grossly intact. Normal speech, gait not observed. PSYCH: Normal mood, normal affect. SKIN: Warm, dry, normal turgor, no rashes or lesions noted Laboratory Results - last 24 hr 11/15/19 11/19/19 11/19/19 19:05 07:45 07:45 WBC 18.6 H RBC 4.22 Hgb 9.1 L Hct 29.8 L MCV 70.7 L MCH 21.7 L MCHC 30.6 L RDW 21.9 H Plt Count 342 MPV 8.3 Sodium 141 Potassium 4.8 Chloride 111 H Carbon Dioxide 20 L Anion Gap 10 BUN 21.0 H Creatinine 1.9 H Est GFR (CKD-EPI)AfAm 43.14 Est GFR (CKD-EPI)NonAf 37.22 Random Glucose 97 Calcium 8.3 L Phosphorus 4.1 Magnesium 2.3 Blood Type O POSITIVE Antibody Screen Negative Crossmatch See Detail Active Medications Generic Name Dose Route Start Last Admin Trade Name Freq PRN Reason Stop Dose Admin Acetaminophen 500 mg 11/16/19 11:06 Tylenol - PO Q6H PRN FEVER Docusate Sodium 100 mg 11/19/19 13:30 11/19/19 13:53 Colace - PO 100 mg BID MARKY Administration Parenteral Electrolytes 1,000 mls @ 75 mls/hr 11/18/19 13:45 11/19/19 13:53 Plasma-Lyte 148 - IV Not Given ASDIR MARKY Oxycodone HCl 5 mg 11/18/19 13:17 Roxicodone - PO Q4H PRN PAIN SCALE 3-5 Oxycodone HCl 10 mg 11/18/19 13:17 Roxicodone - PO Q4H PRN PAIN SCALE 6-10 ASSESSMENT/PLAN: Visit type - Emergency Visit Emergency Visit: Yes ED Registration Date: 11/16/19 Care time: The patient presented to the Emergency Department on the above date and was hospitalized for further evaluation of their emergent condition. - New Patient This patient is new to me today: No - Critical Care Critical Care patient: No - Discharge Referral Referred to [facility] Med P.C.: No ATTENDING PHYSICIAN STATEMENT I saw and evaluated the patient. I reviewed the resident's note and discussed the case with the resident. I agree with the resident's findings and plan as documented. SUBJECTIVE: OBJECTIVE: ASSESSMENT AND PLAN:
[2019-11-20] MEDS: ELECTROLYTE-148 SOLN 1,000 ML IV SCH ×2 (09:06→13:47)
[2019-11-20 09:36] LABS: HEMATOCRIT 28.9 % (35.4-49); HEMOGLOBIN 9.1 GM/dL (11.7-16.9); MCH 21.9 pg (25.7-33.7); MCHC 31.4 g/dl (32.0-35.9); MEAN CELL VOLUME 69.6 fl (80-96); PLATELET COUNT 325 K/MM3 (134-434); RBC 4.16 M/mm3 (4.00-5.60); RDW 22.6 % (11.9-15.9); WHITE BLOOD COUNT 13.1 K/mm3 (4.0-10.0)
[2019-11-20] MEDS: DOCUSATE SODIUM 100 MG CAPSULE (FP) PO SCH (09:50)
[2019-11-20 10:05] LABS: CALCIUM 8.3 mg/dL (8.5-10.1); CREATININE 1.8 mg/dL (0.55-1.3); MAGNESIUM 2.1 mg/dL (1.8-2.4); POTASSIUM 4.5 mmol/L (3.5-5.1)
--- NOTE | 2019-11-20 13:12 | PN ---
Teaching Attending Note Name of Resident: Bernard Aryaa ATTENDING PHYSICIAN STATEMENT I saw and evaluated the patient. I reviewed the resident's note and discussed the case with the resident. I agree with the resident's findings and plan as documented. SUBJECTIVE: Feeling well - no abdominal pain. Had some clots overnight requiring flushing of rosa. OBJECTIVE: Afebrile, Hemodynamically Stable. CBI on hold as per Urology. Last Vital Signs Temp Pulse Resp BP Pulse Ox 97.9 F 82 18 139/85 98 11/20/19 09:41 11/20/19 09:41 11/20/19 09:41 11/20/19 09:41 11/20/19 09:41 Heart - S1, S2, RRR Lungs - clear to auscultation Abdomen - Soft, non-tender. Bowel Sounds normal. - CBI held. Mild pink tinged urine in rosa. Extremities - no edema, no calf tenderness. Neuro - AAO x 3. Tone/Power normal. Laboratory Results - last 24 hr 11/20/19 11/20/19 08:47 08:47 WBC 13.1 H RBC 4.16 Hgb 9.1 L Hct 28.9 L MCV 69.6 L MCH 21.9 L MCHC 31.4 L RDW 22.6 H Plt Count 325 MPV 8.0 Sodium 140 Potassium 4.5 Chloride 110 H Carbon Dioxide 25 Anion Gap 5 L BUN 27.0 H Creatinine 1.8 H Est GFR (CKD-EPI)AfAm 46.05 Est GFR (CKD-EPI)NonAf 39.74 Random Glucose 87 Calcium 8.3 L Phosphorus 4.0 Magnesium 2.1 Intake & Output 11/17/19 11/18/19 11/19/19 11/20/19 23:59 23:59 23:59 23:59 Intake Total 2400 6275 25620 8900 Output Total 2100 6500 09248 5300 Balance 300 -225 4000 3600 Current Medications Generic Name Dose Route Start Last Admin Trade Name Freq PRN Reason Stop Dose Admin Acetaminophen 500 mg 11/16/19 11:06 Tylenol - PO Q6H PRN FEVER Docusate Sodium 100 mg 11/19/19 13:30 11/20/19 09:50 Colace - PO 100 mg BID MARKY Administration Parenteral Electrolytes 1,000 mls @ 75 mls/hr 11/18/19 13:45 11/20/19 09:06 Plasma-Lyte 148 - IV 75 mls/hr ASDIR MARKY Administration Oxycodone HCl 5 mg 11/18/19 13:17 Roxicodone - PO Q4H PRN PAIN SCALE 3-5 Oxycodone HCl 10 mg 11/18/19 13:17 Roxicodone - PO Q4H PRN PAIN SCALE 6-10 Home Medications Medication Instructions Recorded NK [No Known Home Medication] 08/27/16 ASSESSMENT AND PLAN: 59 year old male with history of colitis, s/p prior appendectomy and abdominal hernia repair with mesh, presents with sury hematuria, dysuria for [address] Abdomen - [id number] non-calcific soft tissue lesion in the right lateral half of bladder, mild to moderate hydrouretonephrosis, mild soft tissue stranding, punctate calcification of posterior GB wall ?porcelain GB 1. Acute Blood Loss Anemia secondary to Bladder Mass H/H 9.1/28.9 s/p 2 units PRBCs. POD 2 s/p cystoscopy, TURBT, clot evacuation, Bladder Mass Bx. CBI held as per Urology. Leukocytosis post-procedure resolved. Surgical Pathology of bladder tumor resection shows high grade papillary urotherlial carcinoma invasive to lamina propria Initially empirically treated for UTI with Ceftriaxone - discontinued as Urine Cx negative. WBC elevated post-op, will monitor. Oncology consulted - awaiting further recommendations. Urology following for further recommendations - apparently Urology recommend TOV and discharge home via nurse. Patient not comfortable with this plan. Urology requested to discuss plan directly with the patient. 2. CKD 3 - Stable. Creat 1.8 3. Punctate Calcification posterior GB Wall, likely polyps on Abdominal US - no acute pathology currently, LFTs normal. For outpatient Surgery evaluation. DVT Px - SCDs. Heparin held due to sury hematuria on presentation.
[2019-11-20 15:39] VITALS: BP 123/79; PULSE 96; TEMP 98.9
--- NOTE | 2019-11-20 16:48 | PN.HO ---
Progress Note (short form) - Note Progress Note: PAtient seen and examined AFVSS Cor: RSR, No murmurs, No gallops Lungs: Clear to P&A Abd: Soft, Normal bowel sounds, No organomegaly Ext:No significant edema Labs/Meds reviewed A/P 59 year old male with history of colitis, s/p prior appendectomy and abdominal h ernia repair with mesh, presents with sury hematuria, dysuria for [address] Abdomen/pelvis noncontrast 11/15/19 - [id number] mass in the right lateral half of bladder, mild to moderate hydrouretonephrosis, mild soft tissue stranding, punctate calcification of posterior GB wall ?porcelain GB vs adherent stone. Mesenteric density with mildly prominent stable nodes ? inflammation s/p cystoscopy, TURBT, clot evacuation, Bladder Mass Bx. Surgical Pathology of bladder tumor resection shows high grade papillary urotherlial carcinoma invasive to lamina propria . Scant muscularis propria present No CIS present Will discuss with urology ? cystectomy, 5cm high grade ? T1 high grade papillary urothelial ca Cr 1.8
--- NOTE | 2019-11-20 17:06 | PN.HO ---
Progress Note (short form) - Note Progress Note: PAtient seen and examined. C/O pain in his urinary tract AFVSS Cor: RSR, No murmurs, No gallops Lungs: Clear to P&A Abd: Soft, Normal bowel sounds, No organomegaly Ext:No significant edema Labs/Meds reviewed 11/20/19 08:47 11/20/19 08:47 A/P 59 year old male with history of colitis, s/p prior appendectomy and abdominal hernia repair with mesh, presents with sury hematuria, dysuria for [address] Abdomen/pelvis noncontrast 11/15/19 - [id number] mass in the right lateral half of bladder, mild to moderate hydrouretonephrosis, mild soft tissue stranding, punctate calcification of posterior GB wall ?porcelain GB vs adherent stone s/p cystoscopy, TURBT, clot evacuation, Bladder Mass Bx. Surgical Pathology of bladder tumor resection shows high grade papillary urotherlial carcinoma invasive to lamina propria . Scant muscularis propria present--> Will need to follow-up with Dr. Tadeo or Dr. Vila 2. CKD 3 - Stable. Creat 1.8 3. Punctate Calcification posterior GB Wall, likely polyps on Abdominal US - no acute pathology currently, LFTs normal. For outpatient Surgery evaluation. DVT Px - SCDs. Heparin held due to sury hematuria on presentation. Possible DC today per patient.
== END 2019-11-20 18:07 | disposition home or self-care (01) | DRG 669 ==
LOC: FER 18:02 → J5S 11-16 02:52
PROVIDERS: ADMIT Internal Medicine
PROC: 0TBB8ZZ Excision of Bladder, Via Natural or Artificial Opening Endoscopic (ICD-10-PCS; principal; 2019-11-16)
PROC: 0TBB8ZX Excision of Bladder, Via Natural or Artificial Opening Endoscopic, Diagnostic (ICD-10-PCS; 2019-11-16)
PROC: 0T9B8ZZ Drainage of Bladder, Via Natural or Artificial Opening Endoscopic (ICD-10-PCS; 2019-11-16)
PROC: 30233N1 Transfusion of Nonautologous Red Blood Cells into Peripheral Vein, Percutaneous Approach (ICD-10-PCS; 2019-11-16)
DX: C67.9 Malignant neoplasm of bladder, unspecified (principal); N17.9 Acute kidney failure, unspecified; N13.30 Unspecified hydronephrosis; D62 Acute posthemorrhagic anemia; E86.0 Dehydration; R33.9 Retention of urine, unspecified; N32.89 Other specified disorders of bladder; D64.9 Anemia, unspecified; I12.9 Hypertensive chronic kidney disease with stage 1 through stage 4 chronic kidney disease, or unspecified chronic kidney disease; N18.3 Chronic kidney disease, stage 3 (moderate)
CPT/HCPCS: 36415; 36430; 36511; 71045-TC-FY; 74176-TC; 76705-TC; 80048; 80053; 81003; 81015; 82550; 83735; 84100; 84484; 85025; 85027; 85610; 85730; 86850; 86900; 86901; 86922; 87086; 88307-TC; 93005; 94760; 99285-25; J7030; P9038; P9058; U0003

== ENCOUNTER 2020-03-19 13:19 | Inpatient (IN) | payer OTHER ==
[2020-03-19] MEDS ORDERED: SODIUM CHLORIDE 0.9% 500 ML INFUS.BAG IV ONE (14:35)
[2020-03-19] MEDS ORDERED: LACTATED RINGERS SOLUTION 1000 ML INFUS.BAG IV ONE ×2 (14:53→16:27)
[2020-03-19 16:14] LABS: POTASSIUM 3.8 mmol/L (3.5-5.1)
[2020-03-19 16:14] LABS: BASO % 0.2 % (0-2.0); EOS % 0.1 % (0-4.5); HEMATOCRIT 33.6 % (35.4-49); HEMOGLOBIN 10.6 GM/dL (11.7-16.9); LYMPH % 2.2 % (8-40); MCH 24.5 pg (25.7-33.7); MCHC 31.5 g/dl (32.0-35.9); MEAN CELL VOLUME 77.9 fl (80-96); MEAN PLT VOLUME 8.4 fl (7.5-11.1); MONO % 9.7 % (3.8-10.2); NEUT % 87.8 % (42.8-82.8); PLATELET COUNT 380 K/MM3 (134-434); RBC 4.32 M/mm3 (4.00-5.60); RDW 17.1 % (11.9-15.9); WHITE BLOOD COUNT 18.8 K/mm3 (4.0-10.0)
[2020-03-19 16:16] LABS: BLOOD UREA NITROGEN 80.2 mg/dL (7-18); CALCIUM 8.1 mg/dL (8.5-10.1); MAGNESIUM 2.1 mg/dL (1.8-2.4)
[2020-03-19 16:19] LABS: CREATININE 4.8 mg/dL (0.55-1.3)
[2020-03-19 16:21] LABS: BILIRUBIN,TOTAL 0.3 mg/dL (0.2-1); TOT PROT 7.1 g/dl (6.4-8.2)
[2020-03-19 19:48] LABS: EPI CELLS >36 /uL (0-25.1); HYALINE CASTS 16 /uL (0-3.1); URINE APPEARANCE CLOUDY; URINE BACTERIA 4619 /uL (0-1359); URINE BILIRUBIN NEGATIVE (NEGATIVE); URINE COLOR YELLOW; URINE GLUCOSE (UA) NEGATIVE (NEGATIVE); URINE KETONE NEGATIVE (NEGATIVE); URINE LEUK ESTERASE 2+ (NEGATIVE); URINE NITRITE POSITIVE (NEGATIVE); URINE PROTEIN 1+ (NEGATIVE); URINE UROBILINOGEN 0.2 mg/dL (0.2-1.0); URINE WBC 50 /uL (0-25.8)
[2020-03-19] MEDS ORDERED: CEFTRIAXONE 1 GM in DEXTROSE 5%-WATER - 50 ML IVPB ONE (20:19)
[2020-03-19 20:25] LABS: URINE RBC 18.3 /uL (0-23.9)
[2020-03-19] MEDS: SODIUM CHLORIDE 1,000 ML IV SCH (23:28)
[2020-03-20 01:09] LABS: EPI CELLS 16 /uL (0-25.1); HYALINE CASTS 1 /uL (0-3.1); URINE APPEARANCE CLEAR; URINE BACTERIA 2205 /uL (0-1359); URINE BILIRUBIN NEGATIVE (NEGATIVE); URINE COLOR YELLOW; URINE GLUCOSE (UA) NEGATIVE (NEGATIVE); URINE KETONE NEGATIVE (NEGATIVE); URINE LEUK ESTERASE TRACE (NEGATIVE); URINE NITRITE POSITIVE (NEGATIVE); URINE PROTEIN 1+ (NEGATIVE); URINE RBC 10 /uL (0-23.9); URINE UROBILINOGEN 0.2 mg/dL (0.2-1.0); URINE WBC 25 /uL (0-25.8)
[2020-03-20] MEDS ORDERED: GABAPENTIN 300 MG CAPSULE PO ONE (03:08)
[2020-03-20 03:29] VITALS: BMI 21.9
[2020-03-20 08:19] LABS: HEMATOCRIT 33.4 % (35.4-49); HEMOGLOBIN 10.4 GM/dL (11.7-16.9); MCH 24.2 pg (25.7-33.7); MCHC 31.3 g/dl (32.0-35.9); MEAN CELL VOLUME 77.5 fl (80-96); MEAN PLT VOLUME 8.6 fl (7.5-11.1); PLATELET COUNT 333 K/MM3 (134-434); RBC 4.31 M/mm3 (4.00-5.60); RDW 17.3 % (11.9-15.9)
[2020-03-20 08:35] LABS: INR 1.35 (0.83-1.09); PROTHROMBIN TIME (PATIENT) 16.2 SEC (9.7-13.0)
[2020-03-20 08:38] LABS: ACTIVATED PTT 29.4 SECONDS (25.2-36.5)
[2020-03-20] MEDS: SODIUM CHLORIDE 1,000 ML IV SCH ×2 (08:48→22:18)
[2020-03-20 09:00] LABS: POTASSIUM 3.7 mmol/L (3.5-5.1)
[2020-03-20 09:17] LABS: CALCIUM 8.2 mg/dL (8.5-10.1)
[2020-03-20 09:18] LABS: ALBUMIN 1.9 g/dl (3.4-5.0); MAGNESIUM 2.1 mg/dL (1.8-2.4)
[2020-03-20 09:21] LABS: PHOSPHOROUS 5.1 mg/dL (2.5-4.9)
[2020-03-20 09:22] LABS: BILIRUBIN,TOTAL 0.4 mg/dL (0.2-1); CREATININE 4.7 mg/dL (0.55-1.3)
[2020-03-20 09:24] LABS: TOT PROT 6.6 g/dl (6.4-8.2)
[2020-03-20] MEDS ORDERED: MEROPENEM 1 GM in DEXTROSE 5%-WATER 100 ML IVPB SCH (10:15)
[2020-03-20] MEDS ORDERED: MEROPENEM 1 GM VIAL (RESTRICTED TO ID) IVPB ONE (10:26)
[2020-03-20] MEDS ORDERED: DEXTROSE 5%-WATER 100 ML IVPB ONE ×2 (10:26→22:05)
[2020-03-20] MEDS: GABAPENTIN 300 MG CAPSULE PO SCH ×2 (10:32→22:19)
[2020-03-20] MEDS ORDERED: MEROPENEM 500 MG in DEXTROSE 5%-WATER 100 ML IVPB SCH ×2 (14:00→22:00)
[2020-03-20] MEDS: HEPARIN NA (PORCINE) 5,000 UNITS/ML 1ML VIAL SQ SCH ×2 (14:48→22:19)
[2020-03-20] MEDS ORDERED: CEFTRIAXONE 1 GM in DEXTROSE 5%-WATER - 50 ML IVPB SCH (18:00)
[2020-03-20] MEDS ORDERED: MEROPENEM 500 MG VIAL (RESTRICTED TO ID) IVPB ONE (22:05)
[2020-03-20] MEDS: MEROPENEM 500 MG in DEXTROSE 5%-WATER 100 ML IVPB SCH (22:19)
[2020-03-20] MEDS: PANTOPRAZOLE 40 MG TABLET PO SCH (22:19)
[2020-03-21] MEDS: ACETAMINOPHEN 325 MG TABLET (FP) PO PRN ×3 (02:30→19:02)
[2020-03-21] MEDS: HEPARIN NA (PORCINE) 5,000 UNITS/ML 1ML VIAL SQ SCH ×3 (06:34→21:53)
[2020-03-21 08:10] LABS: BASO % 0.2 % (0-2.0); EOS % 0.8 % (0-4.5); HEMATOCRIT 30.4 % (35.4-49); HEMOGLOBIN 9.4 GM/dL (11.7-16.9); LYMPH % 3.6 % (8-40); MCH 23.9 pg (25.7-33.7); MEAN CELL VOLUME 77.1 fl (80-96); MEAN PLT VOLUME 8.5 fl (7.5-11.1); MONO % 8.6 % (3.8-10.2); NEUT % 86.8 % (42.8-82.8); PLATELET COUNT 297 K/MM3 (134-434); RBC 3.94 M/mm3 (4.00-5.60); RDW 17.1 % (11.9-15.9); WHITE BLOOD COUNT 14.1 K/mm3 (4.0-10.0)
[2020-03-21 08:24] LABS: POTASSIUM 3.8 mmol/L (3.5-5.1)
[2020-03-21 08:26] LABS: BLOOD UREA NITROGEN 75.2 mg/dL (7-18)
[2020-03-21 08:29] LABS: CREATININE 4.6 mg/dL (0.55-1.3); PHOSPHOROUS 5.2 mg/dL (2.5-4.9)
[2020-03-21] MEDS ORDERED: MEROPENEM 1 GM in DEXTROSE 5%-WATER 100 ML IVPB SCH (10:00)
[2020-03-21] MEDS ORDERED: DEXTROSE 5%-WATER 100 ML IVPB ONE ×2 (10:16→21:38)
[2020-03-21] MEDS ORDERED: MEROPENEM 500 MG VIAL (RESTRICTED TO ID) IVPB ONE ×2 (10:16→21:38)
[2020-03-21] MEDS: GABAPENTIN 300 MG CAPSULE PO SCH ×3 (10:29→21:53)
[2020-03-21] MEDS: PANTOPRAZOLE 40 MG TABLET PO SCH ×2 (10:29→21:53)
[2020-03-21] MEDS: MEROPENEM 500 MG in DEXTROSE 5%-WATER 100 ML IVPB SCH ×2 (10:29→22:01)
[2020-03-21 11:05] LABS: EPI CELLS 26 /uL (0-25.1); HYALINE CASTS 1 /uL (0-3.1); PH,URINE 6.5 (5.0-8.0); URINE APPEARANCE CLEAR; URINE BACTERIA 39 /uL (0-1359); URINE BILIRUBIN NEGATIVE (NEGATIVE); URINE COLOR YELLOW; URINE GLUCOSE (UA) NEGATIVE (NEGATIVE); URINE KETONE NEGATIVE (NEGATIVE); URINE LEUK ESTERASE TRACE (NEGATIVE); URINE NITRITE NEGATIVE (NEGATIVE); URINE PROTEIN 1+ (NEGATIVE); URINE RBC 12 /uL (0-23.9); URINE UROBILINOGEN 0.2 mg/dL (0.2-1.0); URINE WBC 10 /uL (0-25.8)
[2020-03-21] MEDS: POTASSIUM CHLORIDE 10 MEQ in SODIUM CHLORIDE 0.45% 1,000 ML IVPB SCH (17:47)
[2020-03-22] MEDS: POTASSIUM CHLORIDE 10 MEQ in SODIUM CHLORIDE 0.45% 1,000 ML IVPB SCH ×2 (06:16→15:45)
[2020-03-22] MEDS: HEPARIN NA (PORCINE) 5,000 UNITS/ML 1ML VIAL SQ SCH ×3 (06:19→21:36)
[2020-03-22 08:26] LABS: HEMATOCRIT 29.7 % (35.4-49); HEMOGLOBIN 9.5 GM/dL (11.7-16.9); MCHC 32.2 g/dl (32.0-35.9); MEAN CELL VOLUME 77.6 fl (80-96); MEAN PLT VOLUME 8.9 fl (7.5-11.1); PLATELET COUNT 292 K/MM3 (134-434); RBC 3.82 M/mm3 (4.00-5.60); RDW 17.3 % (11.9-15.9); WHITE BLOOD COUNT 12.9 K/mm3 (4.0-10.0)
[2020-03-22 08:50] LABS: POTASSIUM 4.2 mmol/L (3.5-5.1)
[2020-03-22] MEDS ORDERED: IRON SUCROSE INJECTION 200 MG in SODIUM CHLORIDE 90 ML IVPB ONE (09:00)
[2020-03-22 09:23] LABS: ALBUMIN 1.4 g/dl (3.4-5.0); BLOOD UREA NITROGEN 71.7 mg/dL (7-18); CALCIUM 7.5 mg/dL (8.5-10.1)
[2020-03-22 09:27] LABS: PHOSPHOROUS 3.8 mg/dL (2.5-4.9)
[2020-03-22 09:28] LABS: BILIRUBIN,TOTAL 0.6 mg/dL (0.2-1); TOT PROT 5.6 g/dl (6.4-8.2)
[2020-03-22] MEDS ORDERED: DEXTROSE 5%-WATER 100 ML IVPB ONE (09:37)
[2020-03-22] MEDS ORDERED: MEROPENEM 500 MG VIAL (RESTRICTED TO ID) IVPB ONE (09:37)
[2020-03-22] MEDS: MEROPENEM 500 MG in DEXTROSE 5%-WATER 100 ML IVPB SCH (09:48)
[2020-03-22] MEDS: PANTOPRAZOLE 40 MG TABLET PO SCH ×2 (09:51→21:36)
[2020-03-22] MEDS: GABAPENTIN 300 MG CAPSULE PO SCH ×2 (09:51→21:36)
[2020-03-22] MEDS: SODIUM CHLORIDE 0.45% 1,000 ML IV SCH (17:07)
[2020-03-23] MEDS ORDERED: DEXTROSE 5%-WATER 100 ML IVPB ONE ×2 (02:14→09:30)
[2020-03-23] MEDS ORDERED: MEROPENEM 500 MG VIAL (RESTRICTED TO ID) IVPB ONE ×2 (02:14→09:30)
[2020-03-23] MEDS: MEROPENEM 500 MG in DEXTROSE 5%-WATER 100 ML IVPB SCH ×2 (02:22→09:34)
[2020-03-23] MEDS: SODIUM CHLORIDE 0.45% 1,000 ML IV SCH ×3 (02:22→16:54)
[2020-03-23] MEDS: HEPARIN NA (PORCINE) 5,000 UNITS/ML 1ML VIAL SQ SCH ×3 (06:37→21:06)
[2020-03-23 08:28] LABS: HEMATOCRIT 29.4 % (35.4-49); HEMOGLOBIN 9.2 GM/dL (11.7-16.9); MCH 23.9 pg (25.7-33.7); MCHC 31.4 g/dl (32.0-35.9); MEAN CELL VOLUME 76.2 fl (80-96); MEAN PLT VOLUME 8.5 fl (7.5-11.1); PLATELET COUNT 330 K/MM3 (134-434); RBC 3.86 M/mm3 (4.00-5.60); RDW 17.1 % (11.9-15.9); WHITE BLOOD COUNT 13.2 K/mm3 (4.0-10.0)
[2020-03-23 08:55] LABS: POTASSIUM 4.1 mmol/L (3.5-5.1)
[2020-03-23 08:57] LABS: CALCIUM 7.7 mg/dL (8.5-10.1)
[2020-03-23 08:58] LABS: MAGNESIUM 1.9 mg/dL (1.8-2.4)
[2020-03-23 09:01] LABS: CREATININE 3.9 mg/dL (0.55-1.3)
[2020-03-23 09:02] LABS: PHOSPHOROUS 3.6 mg/dL (2.5-4.9)
[2020-03-23] MEDS: GABAPENTIN 300 MG CAPSULE PO SCH ×2 (09:34→21:06)
[2020-03-23] MEDS: LACTOBACILLUS ACIDOPHILUS 1 TABLET PO SCH (09:34)
[2020-03-23] MEDS: PANTOPRAZOLE 40 MG TABLET PO SCH ×2 (09:34→21:06)
[2020-03-23] MEDS ORDERED: PT OWN MED DRAWER 7, Y5N ONE ×3 (10:35→21:04)
[2020-03-23] MEDS: LINEZOLID 600 MG TABLET (RESTRICTED TO ID) PO SCH ×2 (13:41→21:06)
[2020-03-24] MEDS: SODIUM CHLORIDE 0.45% 1,000 ML IV SCH (06:20)
[2020-03-24] MEDS: HEPARIN NA (PORCINE) 5,000 UNITS/ML 1ML VIAL SQ SCH ×2 (06:21→06:23)
[2020-03-24] MEDS ORDERED: PT OWN MED DRAWER 7, Y5N ONE (10:45)
[2020-03-24] MEDS: GABAPENTIN 300 MG CAPSULE PO SCH (10:51)
[2020-03-24] MEDS: LINEZOLID 600 MG TABLET (RESTRICTED TO ID) PO SCH (10:51)
[2020-03-24] MEDS: PANTOPRAZOLE 40 MG TABLET PO SCH (10:51)
[2020-03-24] MEDS: LACTOBACILLUS ACIDOPHILUS 1 TABLET PO SCH (10:51)
[2020-03-24 14:15] VITALS: BP 106/65; PULSE 101; TEMP 97.4
[2020-03-27 17:10] LABS: ATYPICAL pANCA <1:20 titer (Neg:<1:20); C-ANCA <1:20 titer (Neg:<1:20)
== END 2020-03-24 17:20 | disposition home or self-care (01) | DRG 394 ==
LOC: JER 13:19 → JERBED 18:36 → J6S 03-20 03:00
PROVIDERS: ADMIT Hospitalist
DX: K52.0 Gastroenteritis and colitis due to radiation (principal); N39.0 Urinary tract infection, site not specified; N17.9 Acute kidney failure, unspecified; R17 Unspecified jaundice; C79.51 Secondary malignant neoplasm of bone; N13.6 Pyonephrosis; N13.30 Unspecified hydronephrosis; C67.9 Malignant neoplasm of bladder, unspecified; N18.30 Chronic kidney disease, stage 3 unspecified; C61 Malignant neoplasm of prostate; E86.0 Dehydration; D72.829 Elevated white blood cell count, unspecified; D50.9 Iron deficiency anemia, unspecified; R00.0 Tachycardia, unspecified
CPT/HCPCS: 36415; 71045-TC-FY; 74176-TC; 80048; 80053; 81003; 82272; 82378; 82436; 82565; 82728; 82977; 83520; 83540; 83550; 83605; 83735; 83993; 84100; 84133; 84155; 84165; 84300; 85025; 85027; 85610; 85651; 85730; 86140; 86256; 86671; 87040; 87045; 87046; 87086; 87177; 87186; 87205; 87209; 87324; 87449; 93005; 93010; 99285-25; C9803; J1644; J1756; U0003

== ENCOUNTER 2020-04-25 11:34 | Inpatient (IN) | payer OTHER ==
[2020-04-25 11:56] VITALS: BMI 21.1
[2020-04-25] MEDS ORDERED: ACETAMINOPHEN 1000 MG/100 ML VIAL (NON FORMULARY) IVPB ONE (12:31)
[2020-04-25] MEDS ORDERED: METHOCARBAMOL 500 MG TABLET PO ONE (12:31)
[2020-04-25] MEDS ORDERED: LIDOCAINE 5% TOPICAL PATCH TP ONE (12:31)
[2020-04-25] MEDS ORDERED: LIDOCAINE 5% TOPICAL PATCH ONE (13:03)
[2020-04-25] MEDS ORDERED: ACETAMINOPHEN INJECTION 100 ML IVPB ONE (13:03)
[2020-04-25] MEDS ORDERED: METHOCARBAMOL 500 MG TABLET ONE (13:03)
[2020-04-25 13:38] LABS: BASO % 0.6 % (0-2.0); EOS % 0.4 % (0-4.5); HEMATOCRIT 27.9 % (35.4-49); LYMPH % 3.5 % (8-40); MCH 25.1 pg (25.7-33.7); MCHC 32.4 g/dl (32.0-35.9); MEAN CELL VOLUME 77.4 fl (80-96); MEAN PLT VOLUME 7.2 fl (7.5-11.1); MONO % 10.7 % (3.8-10.2); NEUT % 84.8 % (42.8-82.8); PLATELET COUNT 609 K/MM3 (134-434); RDW 22.4 % (11.9-15.9); WHITE BLOOD COUNT 14.4 K/mm3 (4.0-10.0)
[2020-04-25 14:01] LABS: POTASSIUM 4.7 mmol/L (3.5-5.1)
[2020-04-25 14:02] LABS: ALBUMIN 2.2 g/dl (3.4-5.0); BLOOD UREA NITROGEN 40.3 mg/dL (7-18); CALCIUM 9.7 mg/dL (8.5-10.1)
[2020-04-25 14:08] LABS: BILIRUBIN,TOTAL 0.3 mg/dL (0.2-1); TOT PROT 7.1 g/dl (6.4-8.2)
[2020-04-25 14:09] LABS: CREATININE 2.3 mg/dL (0.55-1.3)
[2020-04-25 16:03] LABS: ANISOCYTOSIS 2+; MACROCYTOSIS 1+; OVALOCYTE 1+; PLATELET ESTIMATE INCREASED
[2020-04-25] MEDS ORDERED: FAMOTIDINE 20 MG/50 ML IVPB 20 MG/50 ML MG IVPB ONE ×2 (16:21→16:39)
[2020-04-25] MEDS: DEXAMETHASONE SOD PHOSPHATE 10 MG/1 ML VIAL IVPUSH SCH ×2 (16:59→21:54)
[2020-04-25 17:17] LABS: INR 1.24 (0.83-1.09); PROTHROMBIN TIME (PATIENT) 14.9 SEC (9.7-13.0)
[2020-04-25 17:20] LABS: ACTIVATED PTT 31.3 SECONDS (25.2-36.5)
[2020-04-25] MEDS ORDERED: diazePAM CARPU-JECT 10 MG/2 ML DISP.SYRIN IVPUSH ONE (17:26)
[2020-04-25] MEDS ORDERED: diazePAM CARPU-JECT 10 MG/2 ML DISP.SYRIN ONE (17:33)
[2020-04-25] MEDS ORDERED: ACETAMINOPHEN 1000 MG/100 ML VIAL (NON FORMULARY) IVPB PRN (18:29)
[2020-04-25] MEDS ORDERED: MORPHINE SULFATE 2 MG/ML VIAL IVPUSH ONE (20:56)
[2020-04-25] MEDS ORDERED: DEXAMETHASONE SOD PHOSPHATE 10 MG/1 ML VIAL ONE (21:12)
[2020-04-25] MEDS ORDERED: MORPHINE SULFATE 2 MG/ML VIAL ONE (21:13)
[2020-04-25] MEDS ORDERED: LIDOCAINE PATCH REMOVAL MC ONE (22:00)
[2020-04-25] MEDS ORDERED: D5-1/2NS+20 MEQ KCL - 20 MEQ/1,000 ML INFUS.BAG IV SCH (23:50)
[2020-04-26] MEDS: DEXAMETHASONE SOD PHOSPHATE 10 MG/1 ML VIAL IVPUSH SCH ×4 (06:03→21:55)
[2020-04-26 06:50] LABS: BASO % 0.1 % (0-2.0); HEMOGLOBIN 9.1 GM/dL (11.7-16.9); LYMPH % 4.5 % (8-40); MCH 25.4 pg (25.7-33.7); MCHC 32.5 g/dl (32.0-35.9); MEAN CELL VOLUME 78.1 fl (80-96); MEAN PLT VOLUME 7.7 fl (7.5-11.1); MONO % 3.3 % (3.8-10.2); NEUT % 92.1 % (42.8-82.8); PLATELET COUNT 555 K/MM3 (134-434); RBC 3.59 M/mm3 (4.00-5.60)
[2020-04-26 06:56] LABS: INR 1.13 (0.83-1.09); PROTHROMBIN TIME (PATIENT) 13.6 SEC (9.7-13.0)
[2020-04-26 06:58] LABS: ACTIVATED PTT 28.4 SECONDS (25.2-36.5)
[2020-04-26 07:14] LABS: CALCIUM 9.6 mg/dL (8.5-10.1)
[2020-04-26 07:15] LABS: ALBUMIN 2.2 g/dl (3.4-5.0); BLOOD UREA NITROGEN 42.1 mg/dL (7-18); MAGNESIUM 1.9 mg/dL (1.8-2.4)
[2020-04-26 07:18] LABS: CREATININE 2.2 mg/dL (0.55-1.3)
[2020-04-26 07:19] LABS: BILIRUBIN,TOTAL 0.4 mg/dL (0.2-1)
[2020-04-26 07:20] LABS: TOT PROT 7.5 g/dl (6.4-8.2)
[2020-04-26] MEDS ORDERED: LIDOCAINE 1%/EPI 1:100000 (50 ML MULTI DOSE VIAL) ONE (09:19)
[2020-04-26] MEDS ORDERED: GENTAMICIN SO4 80 MG/2 ML VIAL ONE (09:19)
[2020-04-26] MEDS ORDERED: THROMBIN (BOVINE) 20,000 UNIT VIAL TP ONE (09:20)
[2020-04-26 09:28] LABS: ANISOCYTOSIS 1+; MACROCYTOSIS 0; PLATELET ESTIMATE INCREASED
[2020-04-26] MEDS ORDERED: VANCOMYCIN 1,000 MG VIAL (RESTRICTED TO ID ONLY) ONE ×2 (09:29→11:46)
[2020-04-26] MEDS: PANTOPRAZOLE SODIUM 40 MG VIAL IVPUSH SCH (10:24)
[2020-04-26] MEDS: SODIUM CHLORIDE 1,000 ML IV SCH (10:25)
[2020-04-26] MEDS ORDERED: ROCURONIUM BROMIDE 50 MG/5 ML SYRINGE ONE ×2 (11:18→12:58)
[2020-04-26] MEDS ORDERED: PROPOFOL 20 ML ONE ×2 (11:18)
[2020-04-26] MEDS ORDERED: MIDAZOLAM HCL 2 MG/2 ML SINGLE DOSE VIAL ONE (11:18)
[2020-04-26] MEDS ORDERED: SCOPOLAMINE HYDROBROMIDE 1 PATCH PATCH.TD72 ONE (11:33)
[2020-04-26] MEDS ORDERED: SODIUM CHLORIDE 0.9% P/F 10 ML VIAL IJ ONE (11:46)
[2020-04-26] MEDS ORDERED: ceFAZolin SODIUM 1 GM VIAL ONE (11:46)
[2020-04-26] MEDS ORDERED: TRANEXAMIC ACID 1000 MG/10 ML VIAL ONE (11:46)
[2020-04-26] MEDS ORDERED: ceFAZolin SODIUM 1 GM VIAL IVPB ONE (11:47)
[2020-04-26] MEDS ORDERED: VANCOMYCIN 1,000 MG VIAL (RESTRICTED TO ID ONLY) IVPB ONE (11:47)
[2020-04-26] MEDS ORDERED: LIDOCAINE 1%/EPI 1:100000 (20 ML MULTI DOSE VIAL) IJ ONE (12:02)
[2020-04-26] MEDS ORDERED: ONDANSETRON 4 MG/2 ML VIAL ONE (12:07)
[2020-04-26] MEDS ORDERED: HYDROmorphone HCl 2 MG/ML VIAL ONE (13:26)
[2020-04-26] MEDS ORDERED: NEOSTIGMINE METHYLSULFATE 0.5 MG/1 ML - 10 ML MDV ONE (13:57)
[2020-04-26] MEDS ORDERED: GLYCOPYRROLATE 0.2 MG/1 ML VIAL ONE (13:57)
[2020-04-26] MEDS ORDERED: BUPIVACAINE LIPOSOME/PF (EXPAREL) 266 MG/20 ML VIAL NR ONE (14:22)
[2020-04-26] MEDS ORDERED: BUPIVACAINE HCL/PF 0.5% (5MG/ML) 10 ML VIAL IJ ONE (14:22)
[2020-04-26] MEDS ORDERED: ACETAMINOPHEN INJECTION 100 ML IVPB ONE (14:31)
[2020-04-26] MEDS ORDERED: METOPROLOL TARTRATE 5 MG/5 ML VIAL ONE (14:41)
[2020-04-26] MEDS ORDERED: HYDROmorphone *PCA* 10MG/50ML DISP.SYRIN PCA SCH (15:00)
[2020-04-26] MEDS ORDERED: PROMETHAZINE HCL 25 MG/1 ML VIAL IVPUSH PRN (15:00)
[2020-04-26] MEDS ORDERED: LACTATED RINGERS SOLUTION 1,000 ML IV SCH (15:00)
[2020-04-26] MEDS ORDERED: ONDANSETRON 4 MG/2 ML VIAL IVPUSH PRN ×2 (15:00)
[2020-04-26] MEDS ORDERED: PROMETHAZINE HCL 25 MG/1 ML VIAL IVPB PRN (15:00)
[2020-04-26] MEDS ORDERED: DEXAMETHASONE SOD PHOSPHATE 4 MG/1 ML VIAL IVPUSH PRN (15:00)
[2020-04-26] MEDS ORDERED: LACTATED RINGERS SOLUTION 1,000 ML/1,000 ML INFUS.BAG IV SCH (15:30)
[2020-04-26] MEDS ORDERED: HYDROmorphone *PCA* 10MG/50ML DISP.SYRIN ONE (16:31)
[2020-04-26] MEDS: DOCUSATE SODIUM 100 MG CAPSULE (FP) PO SCH (21:55)
[2020-04-26] MEDS: CEFAZOLIN 2 GM/D5W 2 GM/50 ML ML IVPB SCH (21:55)
[2020-04-27] MEDS: DEXAMETHASONE SOD PHOSPHATE 10 MG/1 ML VIAL IVPUSH SCH ×4 (04:46→21:33)
[2020-04-27] MEDS: CEFAZOLIN 2 GM/D5W 2 GM/50 ML ML IVPB SCH (04:46)
[2020-04-27] MEDS: SODIUM CHLORIDE 1,000 ML IV SCH ×2 (04:46→08:53)
[2020-04-27] MEDS: DOCUSATE SODIUM 100 MG CAPSULE (FP) PO SCH ×3 (05:10→21:32)
[2020-04-27 08:24] LABS: HEMATOCRIT 31.5 % (35.4-49); HEMOGLOBIN 10.3 GM/dL (11.7-16.9); LYMPH % 1.7 % (8-40); MCH 26.4 pg (25.7-33.7); MCHC 32.8 g/dl (32.0-35.9); MEAN CELL VOLUME 80.7 fl (80-96); MEAN PLT VOLUME 7.4 fl (7.5-11.1); MONO % 3.4 % (3.8-10.2); NEUT % 94.9 % (42.8-82.8); PLATELET COUNT 533 K/MM3 (134-434); RDW 22.1 % (11.9-15.9); WHITE BLOOD COUNT 20.3 K/mm3 (4.0-10.0)
[2020-04-27 08:32] LABS: POTASSIUM 5.4 mmol/L (3.5-5.1)
[2020-04-27 08:34] LABS: CALCIUM 8.8 mg/dL (8.5-10.1)
[2020-04-27 08:35] LABS: BLOOD UREA NITROGEN 48.6 mg/dL (7-18); MAGNESIUM 1.8 mg/dL (1.8-2.4)
[2020-04-27 08:38] LABS: CREATININE 2.4 mg/dL (0.55-1.3)
[2020-04-27 08:39] LABS: BILIRUBIN,TOTAL 0.2 mg/dL (0.2-1); TOT PROT 6.3 g/dl (6.4-8.2)
[2020-04-27] MEDS ORDERED: DEXTROSE 5%-WATER - 50 ML IVPB ONE ×3 (09:28→20:04)
[2020-04-27] MEDS ORDERED: ceFAZolin SODIUM 1 GM VIAL ONE ×3 (09:28→20:04)
[2020-04-27] MEDS: GABAPENTIN 300 MG CAPSULE PO SCH ×2 (09:45→12:31)
[2020-04-27] MEDS: FERROUS SO4 325 MG TABLET (FP) PO SCH (09:45)
[2020-04-27] MEDS: HEPARIN NA (PORCINE) 5,000 UNITS/ML 1ML VIAL SQ SCH ×3 (09:45→21:31)
[2020-04-27] MEDS: CEFAZOLIN 1 GM in DEXTROSE 5%-WATER - 1 GM/50 ML IVPB IVPB SCH ×3 (09:46→21:32)
[2020-04-27] MEDS: PANTOPRAZOLE SODIUM 40 MG VIAL IVPUSH SCH (09:46)
[2020-04-27 11:17] LABS: ANISOCYTOSIS 1+; MACROCYTOSIS 0; OVALOCYTE 1+; PLATELET ESTIMATE INCREASED; TOXIC GRANULATION 1+
[2020-04-27] MEDS: POLYETHYLENE GLYCOL 3350 119 GM BTL PO SCH (12:36)
[2020-04-27] MEDS: CYCLOBENZAPRINE HCL 5 MG TABLET PO PRN ×2 (14:32→22:35)
[2020-04-27] MEDS ORDERED: ACETAMINOPHEN 500 MG TABLET (FP) PO PRN (16:01)
[2020-04-27] MEDS ORDERED: SODIUM CHLORIDE 0.45% 1,000 ML IV SCH (16:45)
[2020-04-27] MEDS: SODIUM ZIRCONIUM CYCLOSILICATE (LOKELMA) 10 GM PACKET PO SCH (18:03)
[2020-04-28] MEDS ORDERED: DEXTROSE 5%-WATER - 50 ML IVPB ONE ×4 (02:37→20:27)
[2020-04-28] MEDS ORDERED: ceFAZolin SODIUM 1 GM VIAL ONE ×4 (02:37→20:26)
[2020-04-28] MEDS: MORPHINE SULFATE 2 MG/ML VIAL IVPUSH PRN ×2 (02:41→09:04)
[2020-04-28] MEDS: CEFAZOLIN 1 GM in DEXTROSE 5%-WATER - 1 GM/50 ML IVPB IVPB SCH ×4 (02:43→20:46)
[2020-04-28] MEDS: DEXAMETHASONE SOD PHOSPHATE 10 MG/1 ML VIAL IVPUSH SCH ×4 (03:46→22:07)
[2020-04-28] MEDS: HEPARIN NA (PORCINE) 5,000 UNITS/ML 1ML VIAL SQ SCH ×3 (05:39→21:03)
[2020-04-28] MEDS: DOCUSATE SODIUM 100 MG CAPSULE (FP) PO SCH ×3 (05:39→22:07)
[2020-04-28] MEDS ORDERED: PCA PUMP NR ONE (07:16)
[2020-04-28 07:49] LABS: HEMATOCRIT 30.2 % (35.4-49); LYMPH % 2.2 % (8-40); MCH 26.5 pg (25.7-33.7); MCHC 32.9 g/dl (32.0-35.9); MEAN CELL VOLUME 80.5 fl (80-96); MEAN PLT VOLUME 7.8 fl (7.5-11.1); NEUT % 94.8 % (42.8-82.8); PLATELET COUNT 438 K/MM3 (134-434); RBC 3.75 M/mm3 (4.00-5.60); RDW 22.2 % (11.9-15.9)
[2020-04-28 08:11] LABS: POTASSIUM 5.1 mmol/L (3.5-5.1)
[2020-04-28 08:32] LABS: CALCIUM 8.2 mg/dL (8.5-10.1)
[2020-04-28 08:33] LABS: ALBUMIN 1.9 g/dl (3.4-5.0); BLOOD UREA NITROGEN 51.6 mg/dL (7-18); MAGNESIUM 1.5 mg/dL (1.8-2.4)
[2020-04-28 08:36] LABS: CREATININE 2.2 mg/dL (0.55-1.3)
[2020-04-28 08:37] LABS: BILIRUBIN,TOTAL 0.3 mg/dL (0.2-1); TOT PROT 6.1 g/dl (6.4-8.2)
[2020-04-28] MEDS: FERROUS SO4 325 MG TABLET (FP) PO SCH ×2 (09:06→10:14)
[2020-04-28] MEDS: POLYETHYLENE GLYCOL 3350 119 GM BTL PO SCH ×2 (09:06→10:14)
[2020-04-28] MEDS: PANTOPRAZOLE SODIUM 40 MG VIAL IVPUSH SCH (09:06)
[2020-04-28] MEDS: SODIUM ZIRCONIUM CYCLOSILICATE (LOKELMA) 10 GM PACKET PO SCH ×2 (09:07→10:15)
[2020-04-28 11:03] LABS: ANISOCYTOSIS 2+; MACROCYTOSIS 1+; OVALOCYTE 1+; PLATELET ESTIMATE NORMAL
[2020-04-28] MEDS ORDERED: oxyCODONE HCL 5 MG TABLET PO PRN (11:23)
[2020-04-28] MEDS: oxyCODONE HCL 10 MG SUSTAINED ACTING TABLET PO SCH ×2 (11:29→21:03)
[2020-04-28] MEDS ORDERED: BISACODYL 5 MG TABLET.DR (FP) PO ONE (11:30)
[2020-04-28] MEDS: ACETAMINOPHEN 500 MG TABLET (FP) PO SCH ×2 (15:18→20:45)
[2020-04-28] MEDS ORDERED: MAGNESIUM SULF 50% (8.12 MEQ/2 ML-1 GM VIAL) IVPB ONE (16:14)
[2020-04-28] MEDS ORDERED: SODIUM CHLORIDE 0.45% 1,000 ML IV SCH (16:15)
[2020-04-28] MEDS ORDERED: MAGNESIUM OXIDE 400 MG TABLET (FP) PO ONE (16:51)
[2020-04-28] MEDS ORDERED: Methylnaltrexone Bromide 12 MG/0.6 ML KIT SQ SCH (17:00)
[2020-04-28] MEDS ORDERED: PT OWN MED DRAWER 7, Y5N ONE (22:10)
[2020-04-29] MEDS: ACETAMINOPHEN 500 MG TABLET (FP) PO SCH ×4 (02:25→21:59)
[2020-04-29] MEDS ORDERED: DEXTROSE 5%-WATER - 50 ML IVPB ONE ×4 (03:32→21:54)
[2020-04-29] MEDS ORDERED: ceFAZolin SODIUM 1 GM VIAL ONE ×4 (03:32→21:54)
[2020-04-29] MEDS: DEXAMETHASONE SOD PHOSPHATE 10 MG/1 ML VIAL IVPUSH SCH ×4 (03:50→22:01)
[2020-04-29] MEDS: CEFAZOLIN 1 GM in DEXTROSE 5%-WATER - 1 GM/50 ML IVPB IVPB SCH ×4 (03:51→21:56)
[2020-04-29] MEDS: DOCUSATE SODIUM 100 MG CAPSULE (FP) PO SCH ×3 (05:54→22:00)
[2020-04-29] MEDS: HEPARIN NA (PORCINE) 5,000 UNITS/ML 1ML VIAL SQ SCH ×3 (05:55→22:00)
[2020-04-29] MEDS ORDERED: Methylnaltrexone Bromide 12 MG/0.6 ML KIT SQ PRN (08:19)
[2020-04-29 08:26] LABS: CHLORIDE 110 mmol/L (98-107); POTASSIUM 4.6 mmol/L (3.5-5.1); SODIUM 137 mmol/L (136-145)
[2020-04-29 08:28] LABS: HEMATOCRIT 28.4 % (35.4-49); HEMOGLOBIN 9.4 GM/dL (11.7-16.9); LYMPH % 2.7 % (8-40); MCH 26.7 pg (25.7-33.7); MEAN PLT VOLUME 7.6 fl (7.5-11.1); MONO % 4.1 % (3.8-10.2); NEUT % 93.2 % (42.8-82.8); PLATELET COUNT 404 K/MM3 (134-434); RDW 22.7 % (11.9-15.9); WHITE BLOOD COUNT 16.4 K/mm3 (4.0-10.0)
[2020-04-29 08:38] LABS: ALBUMIN 1.7 g/dl (3.4-5.0); ANION GAP 8 MMOL/L (8-16); BLOOD UREA NITROGEN 50.8 mg/dL (7-18); CO2 19 mmol/L (21-32); GLUCOSE,RANDOM 134 mg/dL (74-106); MAGNESIUM 2.2 mg/dL (1.8-2.4)
[2020-04-29 08:41] LABS: SGOT/AST 7 U/L (15-37)
[2020-04-29 08:43] LABS: BILIRUBIN,TOTAL 0.8 mg/dL (0.2-1); TOT PROT 5.5 g/dl (6.4-8.2)
[2020-04-29 08:48] LABS: ALK PHOS 241 U/L (45-117); SGPT/ALT < 6 U/L (13-61)
[2020-04-29] MEDS: oxyCODONE HCL 10 MG SUSTAINED ACTING TABLET PO SCH ×2 (09:44→22:01)
[2020-04-29] MEDS: FERROUS SO4 325 MG TABLET (FP) PO SCH (09:45)
[2020-04-29] MEDS: PANTOPRAZOLE SODIUM 40 MG VIAL IVPUSH SCH (09:45)
[2020-04-29 10:52] LABS: ANISOCYTOSIS 2+
[2020-04-29] MEDS: POLYETHYLENE GLYCOL 3350 119 GM BTL PO SCH (11:00)
[2020-04-29] MEDS ORDERED: BISACODYL 10 MG SUPP.RECT PR ONE (14:11)
[2020-04-29] MEDS ORDERED: oxyCODONE HCL 5 MG TABLET PO PRN (14:11)
[2020-04-29] MEDS: CYCLOBENZAPRINE HCL 5 MG TABLET PO PRN (21:57)
[2020-04-30] MEDS: oxyCODONE HCL 10 MG SUSTAINED ACTING TABLET PO SCH ×3 (00:28→21:05)
[2020-04-30] MEDS ORDERED: DEXTROSE 5%-WATER - 50 ML IVPB ONE ×4 (01:30→20:50)
[2020-04-30] MEDS ORDERED: ceFAZolin SODIUM 1 GM VIAL ONE ×4 (01:30→20:49)
[2020-04-30] MEDS: CEFAZOLIN 1 GM in DEXTROSE 5%-WATER - 1 GM/50 ML IVPB IVPB SCH ×4 (03:30→21:03)
[2020-04-30] MEDS: DEXAMETHASONE SOD PHOSPHATE 10 MG/1 ML VIAL IVPUSH SCH (04:39)
[2020-04-30] MEDS ORDERED: PT OWN MED DRAWER 7, Y5N ONE (06:24)
[2020-04-30] MEDS: HEPARIN NA (PORCINE) 5,000 UNITS/ML 1ML VIAL SQ SCH ×3 (06:25→21:03)
[2020-04-30] MEDS: DOCUSATE SODIUM 100 MG CAPSULE (FP) PO SCH ×3 (06:26→21:04)
[2020-04-30 08:00] LABS: ALBUMIN 1.8 g/dl (3.4-5.0); BLOOD UREA NITROGEN 47.8 mg/dL (7-18); CALCIUM 8.3 mg/dL (8.5-10.1)
[2020-04-30 08:01] LABS: HEMATOCRIT 28.2 % (35.4-49); HEMOGLOBIN 9.2 GM/dL (11.7-16.9); LYMPH % 2.2 % (8-40); MCH 26.9 pg (25.7-33.7); MCHC 32.8 g/dl (32.0-35.9); MEAN CELL VOLUME 81.9 fl (80-96); MEAN PLT VOLUME 7.7 fl (7.5-11.1); MONO % 4.5 % (3.8-10.2); NEUT % 93.3 % (42.8-82.8); PLATELET COUNT 429 K/MM3 (134-434); RBC 3.44 M/mm3 (4.00-5.60); RDW 23.3 % (11.9-15.9); WHITE BLOOD COUNT 19.6 K/mm3 (4.0-10.0)
[2020-04-30 08:03] LABS: CREATININE 2.1 mg/dL (0.55-1.3)
[2020-04-30 08:04] LABS: BILIRUBIN,TOTAL 0.5 mg/dL (0.2-1); TOT PROT 5.8 g/dl (6.4-8.2)
[2020-04-30] MEDS: PANTOPRAZOLE SODIUM 40 MG VIAL IVPUSH SCH (09:14)
[2020-04-30] MEDS: FERROUS SO4 325 MG TABLET (FP) PO SCH (09:14)
[2020-04-30] MEDS: POLYETHYLENE GLYCOL 3350 119 GM BTL PO SCH (09:14)
[2020-04-30] MEDS: DEXAMETHASONE 4 MG TABLET (FP) PO SCH ×2 (09:17→21:04)
[2020-04-30 11:12] LABS: ANISOCYTOSIS 3+; MACROCYTOSIS 0; PLATELET ESTIMATE NORMAL
[2020-04-30] MEDS ORDERED: LACTULOSE 20 GM/30 ML UDC (FOR ORAL USE ONLY) PO ONE (13:17)
[2020-04-30] MEDS: Methylnaltrexone Bromide 12 MG/0.6 ML KIT SQ PRN (13:53)
[2020-04-30] MEDS: ACETAMINOPHEN 325 MG TABLET (FP) PO PRN (21:44)
[2020-05-01] MEDS ORDERED: ceFAZolin SODIUM 1 GM VIAL ONE ×4 (01:41→21:21)
[2020-05-01] MEDS ORDERED: DEXTROSE 5%-WATER - 50 ML IVPB ONE ×4 (01:41→21:21)
[2020-05-01] MEDS: CEFAZOLIN 1 GM in DEXTROSE 5%-WATER - 1 GM/50 ML IVPB IVPB SCH ×4 (02:03→21:26)
[2020-05-01] MEDS: HEPARIN NA (PORCINE) 5,000 UNITS/ML 1ML VIAL SQ SCH ×3 (05:26→21:26)
[2020-05-01] MEDS: DOCUSATE SODIUM 100 MG CAPSULE (FP) PO SCH ×3 (05:27→21:28)
[2020-05-01] MEDS: ACETAMINOPHEN 325 MG TABLET (FP) PO PRN ×3 (05:37→21:31)
[2020-05-01 08:33] LABS: BASO % 0.1 % (0-2.0); HEMATOCRIT 29.8 % (35.4-49); HEMOGLOBIN 9.7 GM/dL (11.7-16.9); LYMPH % 2.7 % (8-40); MCH 26.6 pg (25.7-33.7); MCHC 32.6 g/dl (32.0-35.9); MEAN CELL VOLUME 81.5 fl (80-96); MEAN PLT VOLUME 7.7 fl (7.5-11.1); MONO % 6.4 % (3.8-10.2); NEUT % 90.8 % (42.8-82.8); PLATELET COUNT 450 K/MM3 (134-434); RBC 3.66 M/mm3 (4.00-5.60); RDW 23.8 % (11.9-15.9); WHITE BLOOD COUNT 23.6 K/mm3 (4.0-10.0)
[2020-05-01 08:48] LABS: POTASSIUM 5.2 mmol/L (3.5-5.1)
[2020-05-01 08:52] LABS: BLOOD UREA NITROGEN 49.2 mg/dL (7-18); CALCIUM 8.3 mg/dL (8.5-10.1)
[2020-05-01 08:53] LABS: ALBUMIN 1.9 g/dl (3.4-5.0)
[2020-05-01 08:54] LABS: MAGNESIUM 1.9 mg/dL (1.8-2.4)
[2020-05-01 08:56] LABS: CREATININE 1.9 mg/dL (0.55-1.3)
[2020-05-01 08:57] LABS: BILIRUBIN,TOTAL 0.6 mg/dL (0.2-1); TOT PROT 5.9 g/dl (6.4-8.2)
[2020-05-01] MEDS: PANTOPRAZOLE SODIUM 40 MG VIAL IVPUSH SCH (10:00)
[2020-05-01] MEDS: SODIUM ZIRCONIUM CYCLOSILICATE (LOKELMA) 5 GM PACKET PO SCH (10:02)
[2020-05-01] MEDS: DEXAMETHASONE 4 MG TABLET (FP) PO SCH ×2 (10:02→21:27)
[2020-05-01] MEDS: FERROUS SO4 325 MG TABLET (FP) PO SCH (10:02)
[2020-05-01] MEDS: oxyCODONE HCL 10 MG SUSTAINED ACTING TABLET PO SCH (10:04)
[2020-05-01 11:48] LABS: ANISOCYTOSIS 1+; MACROCYTOSIS 0; PLATELET ESTIMATE NORMAL
[2020-05-01] MEDS ORDERED: MINERAL OIL ENEMA 133 ML ENEMA PR ONE (12:47)
[2020-05-01] MEDS ORDERED: IRON SUCROSE INJECTION 200 MG in SODIUM CHLORIDE 90 ML IVPB ONE (12:47)
[2020-05-01] MEDS: LIDOCAINE 5% TOPICAL PATCH TP SCH (13:30)
[2020-05-01] MEDS: POLYETHYLENE GLYCOL 3350 119 GM BTL PO SCH ×3 (13:31→21:30)
[2020-05-01] MEDS: CYCLOBENZAPRINE HCL 5 MG TABLET PO SCH ×2 (14:00→21:28)
[2020-05-01] MEDS ORDERED: oxyCODONE HCL 5 MG TABLET PO PRN (16:32)
[2020-05-01] MEDS: LIDOCAINE PATCH REMOVAL MC SCH (21:28)
[2020-05-02] MEDS ORDERED: DEXTROSE 5%-WATER - 50 ML IVPB ONE ×2 (02:00→09:14)
[2020-05-02] MEDS ORDERED: ceFAZolin SODIUM 1 GM VIAL ONE ×2 (02:00→09:14)
[2020-05-02] MEDS: CEFAZOLIN 1 GM in DEXTROSE 5%-WATER - 1 GM/50 ML IVPB IVPB SCH ×2 (02:19→09:31)
[2020-05-02] MEDS: POLYETHYLENE GLYCOL 3350 119 GM BTL PO SCH ×3 (05:01→21:17)
[2020-05-02] MEDS: DOCUSATE SODIUM 100 MG CAPSULE (FP) PO SCH ×3 (05:03→21:18)
[2020-05-02] MEDS: HEPARIN NA (PORCINE) 5,000 UNITS/ML 1ML VIAL SQ SCH ×3 (05:03→21:17)
[2020-05-02] MEDS: CYCLOBENZAPRINE HCL 5 MG TABLET PO SCH ×3 (05:03→21:17)
[2020-05-02 08:52] LABS: BASO % 0.1 % (0-2.0); HEMATOCRIT 30.3 % (35.4-49); HEMOGLOBIN 9.9 GM/dL (11.7-16.9); LYMPH % 2.5 % (8-40); MCH 26.6 pg (25.7-33.7); MCHC 32.6 g/dl (32.0-35.9); MEAN CELL VOLUME 81.6 fl (80-96); MEAN PLT VOLUME 8.2 fl (7.5-11.1); MONO % 8.1 % (3.8-10.2); NEUT % 89.3 % (42.8-82.8); PLATELET COUNT 447 K/MM3 (134-434); RBC 3.71 M/mm3 (4.00-5.60); RDW 23.4 % (11.9-15.9)
[2020-05-02 08:58] LABS: POTASSIUM 5.1 mmol/L (3.5-5.1)
[2020-05-02 09:02] LABS: CALCIUM 8.8 mg/dL (8.5-10.1)
[2020-05-02 09:03] LABS: MAGNESIUM 1.9 mg/dL (1.8-2.4)
[2020-05-02 09:06] LABS: CREATININE 1.6 mg/dL (0.55-1.3)
[2020-05-02 09:08] LABS: BILIRUBIN,TOTAL 0.4 mg/dL (0.2-1); TOT PROT 6.2 g/dl (6.4-8.2)
[2020-05-02] MEDS: DEXAMETHASONE 4 MG TABLET (FP) PO SCH (09:30)
[2020-05-02] MEDS: PANTOPRAZOLE SODIUM 40 MG VIAL IVPUSH SCH (09:30)
[2020-05-02] MEDS: Methylnaltrexone Bromide 12 MG/0.6 ML KIT SQ PRN (09:31)
[2020-05-02] MEDS: SODIUM ZIRCONIUM CYCLOSILICATE (LOKELMA) 5 GM PACKET PO SCH (09:31)
[2020-05-02] MEDS: ACETAMINOPHEN 325 MG TABLET (FP) PO PRN (09:32)
[2020-05-02] MEDS ORDERED: ACETAMINOPHEN 1000 MG/100 ML VIAL (NON FORMULARY) IVPB PRN (10:51)
[2020-05-02] MEDS: traMADol HCL 50 MG TABLET PO PRN (12:10)
[2020-05-02 12:59] LABS: PHOSPHOROUS 2.9 mg/dL (2.5-4.9)
[2020-05-02 13:24] LABS: ANISOCYTOSIS 1+; MACROCYTOSIS 0; OVALOCYTE 1+; PLATELET ESTIMATE NORMAL
[2020-05-02] MEDS: LIDOCAINE 5% TOPICAL PATCH TP SCH (14:10)
[2020-05-02] MEDS ORDERED: MEROPENEM 1 GM VIAL (RESTRICTED TO ID) IVPB ONE (17:38)
[2020-05-02] MEDS ORDERED: DEXTROSE 5%-WATER 100 ML IVPB ONE (17:38)
[2020-05-02] MEDS: MEROPENEM 1 GM in DEXTROSE 5%-WATER 100 ML IVPB SCH (17:50)
[2020-05-02] MEDS: LIDOCAINE PATCH REMOVAL MC SCH (21:18)
[2020-05-03] MEDS ORDERED: DEXTROSE 5%-WATER 100 ML IVPB ONE ×3 (00:13→17:39)
[2020-05-03] MEDS ORDERED: MEROPENEM 1 GM VIAL (RESTRICTED TO ID) IVPB ONE ×4 (00:13→17:39)
[2020-05-03] MEDS: MEROPENEM 1 GM in DEXTROSE 5%-WATER 100 ML IVPB SCH ×3 (01:02→18:21)
[2020-05-03] MEDS: ACETAMINOPHEN 325 MG TABLET (FP) PO PRN ×2 (04:24→22:02)
[2020-05-03] MEDS: HEPARIN NA (PORCINE) 5,000 UNITS/ML 1ML VIAL SQ SCH ×3 (05:25→22:02)
[2020-05-03] MEDS: CYCLOBENZAPRINE HCL 5 MG TABLET PO SCH ×3 (05:26→22:02)
[2020-05-03] MEDS: DOCUSATE SODIUM 100 MG CAPSULE (FP) PO SCH ×3 (05:26→22:03)
[2020-05-03 07:56] LABS: BASO % 0.3 % (0-2.0); EOS % 0.5 % (0-4.5); HEMATOCRIT 29.8 % (35.4-49); HEMOGLOBIN 9.8 GM/dL (11.7-16.9); LYMPH % 3.6 % (8-40); MEAN CELL VOLUME 81.7 fl (80-96); MEAN PLT VOLUME 8.1 fl (7.5-11.1); MONO % 9.7 % (3.8-10.2); NEUT % 85.9 % (42.8-82.8); PLATELET COUNT 420 K/MM3 (134-434); RBC 3.65 M/mm3 (4.00-5.60); RDW 23.9 % (11.9-15.9); WHITE BLOOD COUNT 28.3 K/mm3 (4.0-10.0)
[2020-05-03 08:17] LABS: POTASSIUM 4.6 mmol/L (3.5-5.1)
[2020-05-03 08:19] LABS: ALBUMIN 1.9 g/dl (3.4-5.0); BLOOD UREA NITROGEN 50.5 mg/dL (7-18)
[2020-05-03 08:23] LABS: CREATININE 1.4 mg/dL (0.55-1.3)
[2020-05-03] MEDS: LIDOCAINE 5% TOPICAL PATCH TP SCH (09:55)
[2020-05-03] MEDS: SODIUM ZIRCONIUM CYCLOSILICATE (LOKELMA) 5 GM PACKET PO SCH ×2 (09:55→10:11)
[2020-05-03] MEDS: PANTOPRAZOLE SODIUM 40 MG VIAL IVPUSH SCH (09:55)
[2020-05-03] MEDS: DEXAMETHASONE 4 MG TABLET (FP) PO SCH (09:55)
[2020-05-03] MEDS: POLYETHYLENE GLYCOL 3350 119 GM BTL PO SCH ×2 (09:56→22:19)
[2020-05-03] MEDS: traMADol HCL 50 MG TABLET PO PRN ×2 (10:03→18:26)
[2020-05-03 11:19] LABS: ANISOCYTOSIS 2+; MACROCYTOSIS 0; PLATELET ESTIMATE NORMAL
[2020-05-03 13:00] LABS: EPI CELLS >36 /uL (0-25.1); HYALINE CASTS 1 /uL (0-3.1); URINE APPEARANCE CLEAR; URINE BACTERIA 15 /uL (0-1359); URINE BILIRUBIN NEGATIVE (NEGATIVE); URINE COLOR YELLOW; URINE GLUCOSE (UA) NEGATIVE (NEGATIVE); URINE KETONE NEGATIVE (NEGATIVE); URINE LEUK ESTERASE 2+ (NEGATIVE); URINE NITRITE NEGATIVE (NEGATIVE); URINE PROTEIN 1+ (NEGATIVE); URINE RBC 3 /uL (0-23.9); URINE UROBILINOGEN 0.2 mg/dL (0.2-1.0); URINE WBC 83 /uL (0-25.8)
[2020-05-03] MEDS: ACETAMINOPHEN 1000 MG/100 ML VIAL (NON FORMULARY) IVPB PRN (14:00)
[2020-05-03] MEDS: LIDOCAINE PATCH REMOVAL MC SCH (22:19)
[2020-05-04] MEDS ORDERED: MEROPENEM 1 GM VIAL (RESTRICTED TO ID) IVPB ONE ×3 (02:23→16:53)
[2020-05-04] MEDS ORDERED: DEXTROSE 5%-WATER 100 ML IVPB ONE ×3 (02:24→16:53)
[2020-05-04] MEDS: MEROPENEM 1 GM in DEXTROSE 5%-WATER 100 ML IVPB SCH ×3 (02:26→17:02)
[2020-05-04] MEDS: ACETAMINOPHEN 1000 MG/100 ML VIAL (NON FORMULARY) IVPB PRN ×2 (04:04→09:46)
[2020-05-04] MEDS: DOCUSATE SODIUM 100 MG CAPSULE (FP) PO SCH ×3 (06:51→21:04)
[2020-05-04] MEDS: HEPARIN NA (PORCINE) 5,000 UNITS/ML 1ML VIAL SQ SCH ×3 (06:51→21:04)
[2020-05-04] MEDS: CYCLOBENZAPRINE HCL 5 MG TABLET PO SCH ×3 (06:51→21:03)
[2020-05-04 07:47] LABS: BASO % 0.4 % (0-2.0); EOS % 0.3 % (0-4.5); HEMATOCRIT 29.3 % (35.4-49); HEMOGLOBIN 9.6 GM/dL (11.7-16.9); LYMPH % 4.3 % (8-40); MCHC 32.9 g/dl (32.0-35.9); MEAN CELL VOLUME 82.1 fl (80-96); MONO % 8.5 % (3.8-10.2); NEUT % 86.5 % (42.8-82.8); PLATELET COUNT 414 K/MM3 (134-434); RBC 3.57 M/mm3 (4.00-5.60); RDW 24.6 % (11.9-15.9); WHITE BLOOD COUNT 28.2 K/mm3 (4.0-10.0)
[2020-05-04 08:01] LABS: POTASSIUM 4.4 mmol/L (3.5-5.1)
[2020-05-04 08:07] LABS: ALBUMIN 1.8 g/dl (3.4-5.0); BLOOD UREA NITROGEN 57.5 mg/dL (7-18); CALCIUM 8.5 mg/dL (8.5-10.1); MAGNESIUM 1.8 mg/dL (1.8-2.4)
[2020-05-04 08:10] LABS: CREATININE 1.4 mg/dL (0.55-1.3)
[2020-05-04 08:12] LABS: BILIRUBIN,TOTAL 0.4 mg/dL (0.2-1); TOT PROT 5.8 g/dl (6.4-8.2)
[2020-05-04] MEDS: AMINO ACIDS/PROTEIN HYDROLYS 30 ML LIQUID.PKT PO SCH ×2 (09:45→17:02)
[2020-05-04] MEDS: LIDOCAINE 5% TOPICAL PATCH TP SCH (09:47)
[2020-05-04] MEDS: POLYETHYLENE GLYCOL 3350 119 GM BTL PO SCH ×2 (09:48→21:04)
[2020-05-04] MEDS: PANTOPRAZOLE SODIUM 40 MG VIAL IVPUSH SCH (09:48)
[2020-05-04 10:45] LABS: ANISOCYTOSIS 3+; MACROCYTOSIS 0; PLATELET ESTIMATE NORMAL
[2020-05-04] MEDS: SODIUM ZIRCONIUM CYCLOSILICATE (LOKELMA) 5 GM PACKET PO SCH (11:48)
[2020-05-04] MEDS: traMADol HCL 50 MG TABLET PO PRN (14:06)
[2020-05-04] MEDS ORDERED: oxyCODONE HCL 5 MG TABLET PO PRN (16:07)
[2020-05-04] MEDS: ACETAMINOPHEN 325 MG TABLET (FP) PO PRN (16:48)
[2020-05-04] MEDS: LIDOCAINE PATCH REMOVAL MC SCH (21:04)
[2020-05-05] MEDS ORDERED: DEXTROSE 5%-WATER 100 ML IVPB ONE ×3 (02:47→16:23)
[2020-05-05] MEDS ORDERED: MEROPENEM 1 GM VIAL (RESTRICTED TO ID) IVPB ONE ×3 (02:47→16:23)
[2020-05-05] MEDS: MEROPENEM 1 GM in DEXTROSE 5%-WATER 100 ML IVPB SCH ×3 (02:57→17:19)
[2020-05-05] MEDS: CYCLOBENZAPRINE HCL 5 MG TABLET PO SCH ×3 (05:59→21:35)
[2020-05-05] MEDS: HEPARIN NA (PORCINE) 5,000 UNITS/ML 1ML VIAL SQ SCH ×3 (05:59→21:35)
[2020-05-05] MEDS: traMADol HCL 50 MG TABLET PO PRN ×2 (06:01→21:34)
[2020-05-05] MEDS: DOCUSATE SODIUM 100 MG CAPSULE (FP) PO SCH ×2 (06:07→17:24)
[2020-05-05 08:07] LABS: BASO % 0.1 % (0-2.0); EOS % 0.3 % (0-4.5); HEMATOCRIT 30.4 % (35.4-49); LYMPH % 3.4 % (8-40); MCH 26.8 pg (25.7-33.7); MCHC 32.7 g/dl (32.0-35.9); MEAN PLT VOLUME 8.3 fl (7.5-11.1); MONO % 8.7 % (3.8-10.2); NEUT % 87.5 % (42.8-82.8); PLATELET COUNT 417 K/MM3 (134-434); RBC 3.71 M/mm3 (4.00-5.60); RDW 24.6 % (11.9-15.9); WHITE BLOOD COUNT 26.1 K/mm3 (4.0-10.0)
[2020-05-05 08:24] LABS: POTASSIUM 4.8 mmol/L (3.5-5.1)
[2020-05-05 08:26] LABS: ALBUMIN 1.8 g/dl (3.4-5.0); BLOOD UREA NITROGEN 53.2 mg/dL (7-18); CALCIUM 8.8 mg/dL (8.5-10.1); MAGNESIUM 1.9 mg/dL (1.8-2.4)
[2020-05-05 08:29] LABS: CREATININE 1.5 mg/dL (0.55-1.3)
[2020-05-05] MEDS ORDERED: fentaNYL 25mcg/hr PATCH.TD72 TD SCH (08:30)
[2020-05-05 08:31] LABS: BILIRUBIN,TOTAL 0.4 mg/dL (0.2-1)
[2020-05-05] MEDS: LIDOCAINE 5% TOPICAL PATCH TP SCH (10:04)
[2020-05-05] MEDS: SODIUM ZIRCONIUM CYCLOSILICATE (LOKELMA) 5 GM PACKET PO SCH (10:05)
[2020-05-05] MEDS: ACETAMINOPHEN 325 MG TABLET (FP) PO PRN (10:05)
[2020-05-05] MEDS: PANTOPRAZOLE 40 MG TABLET PO SCH (10:06)
[2020-05-05] MEDS: POLYETHYLENE GLYCOL 3350 119 GM BTL PO SCH (10:06)
[2020-05-05] MEDS: AMINO ACIDS/PROTEIN HYDROLYS 30 ML LIQUID.PKT PO SCH ×2 (10:15→17:19)
[2020-05-05 10:26] LABS: ANISOCYTOSIS 2+; MACROCYTOSIS 0; PLATELET ESTIMATE NORMAL
[2020-05-05] MEDS ORDERED: PT OWN MED DRAWER 7, Y5N ONE (20:32)
[2020-05-05] MEDS: LIDOCAINE PATCH REMOVAL MC SCH (21:35)
[2020-05-06] MEDS ORDERED: DEXTROSE 5%-WATER 100 ML IVPB ONE ×4 (01:22→17:25)
[2020-05-06] MEDS ORDERED: MEROPENEM 1 GM VIAL (RESTRICTED TO ID) IVPB ONE ×4 (01:22→17:25)
[2020-05-06] MEDS: MEROPENEM 1 GM in DEXTROSE 5%-WATER 100 ML IVPB SCH ×3 (01:37→17:24)
[2020-05-06] MEDS: ACETAMINOPHEN 325 MG TABLET (FP) PO PRN (01:38)
[2020-05-06] MEDS: CYCLOBENZAPRINE HCL 5 MG TABLET PO SCH ×3 (05:19→21:50)
[2020-05-06] MEDS: HEPARIN NA (PORCINE) 5,000 UNITS/ML 1ML VIAL SQ SCH ×3 (05:20→21:50)
[2020-05-06] MEDS: traMADol HCL 50 MG TABLET PO PRN ×2 (05:20→19:33)
[2020-05-06 07:19] LABS: BASO % 0.1 % (0-2.0); EOS % 0.3 % (0-4.5); HEMATOCRIT 31.3 % (35.4-49); HEMOGLOBIN 10.3 GM/dL (11.7-16.9); LYMPH % 3.3 % (8-40); MCH 27.1 pg (25.7-33.7); MCHC 32.8 g/dl (32.0-35.9); MEAN CELL VOLUME 82.5 fl (80-96); MEAN PLT VOLUME 8.4 fl (7.5-11.1); MONO % 8.1 % (3.8-10.2); NEUT % 88.2 % (42.8-82.8); PLATELET COUNT 381 K/MM3 (134-434); RBC 3.79 M/mm3 (4.00-5.60); RDW 25.1 % (11.9-15.9); WHITE BLOOD COUNT 23.6 K/mm3 (4.0-10.0)
[2020-05-06 07:49] LABS: POTASSIUM 4.8 mmol/L (3.5-5.1)
[2020-05-06 08:05] LABS: CALCIUM 8.9 mg/dL (8.5-10.1)
[2020-05-06 08:06] LABS: ALBUMIN 1.8 g/dl (3.4-5.0); BLOOD UREA NITROGEN 54.8 mg/dL (7-18); MAGNESIUM 1.8 mg/dL (1.8-2.4)
[2020-05-06 08:08] LABS: CREATININE 1.5 mg/dL (0.55-1.3)
[2020-05-06 08:09] LABS: BILIRUBIN,TOTAL 0.6 mg/dL (0.2-1)
[2020-05-06] MEDS: LIDOCAINE 5% TOPICAL PATCH TP SCH (09:00)
[2020-05-06] MEDS: AMINO ACIDS/PROTEIN HYDROLYS 30 ML LIQUID.PKT PO SCH ×2 (09:01→17:35)
[2020-05-06] MEDS: PANTOPRAZOLE 40 MG TABLET PO SCH (09:02)
[2020-05-06 09:53] LABS: ANISOCYTOSIS 3+; MACROCYTOSIS 1+; PLATELET ESTIMATE NORMAL
[2020-05-06] MEDS: POLYETHYLENE GLYCOL 3350 119 GM BTL PO SCH (10:50)
[2020-05-06] MEDS: LIDOCAINE PATCH REMOVAL MC SCH (21:50)
[2020-05-07] MEDS ORDERED: MEROPENEM 1 GM VIAL (RESTRICTED TO ID) IVPB ONE ×3 (02:10→16:37)
[2020-05-07] MEDS ORDERED: DEXTROSE 5%-WATER 100 ML IVPB ONE ×3 (02:11→16:37)
[2020-05-07] MEDS: MEROPENEM 1 GM in DEXTROSE 5%-WATER 100 ML IVPB SCH ×3 (02:24→17:16)
[2020-05-07] MEDS: CYCLOBENZAPRINE HCL 5 MG TABLET PO SCH ×3 (05:17→22:16)
[2020-05-07] MEDS: traMADol HCL 50 MG TABLET PO PRN ×3 (05:18→17:38)
[2020-05-07] MEDS: HEPARIN NA (PORCINE) 5,000 UNITS/ML 1ML VIAL SQ SCH ×3 (06:12→22:16)
[2020-05-07 08:43] LABS: BASO % 0.2 % (0-2.0); EOS % 0.3 % (0-4.5); HEMATOCRIT 33.6 % (35.4-49); HEMOGLOBIN 10.9 GM/dL (11.7-16.9); LYMPH % 2.6 % (8-40); MCH 27.1 pg (25.7-33.7); MCHC 32.3 g/dl (32.0-35.9); MEAN CELL VOLUME 83.7 fl (80-96); MEAN PLT VOLUME 8.5 fl (7.5-11.1); MONO % 6.4 % (3.8-10.2); NEUT % 90.5 % (42.8-82.8); PLATELET COUNT 423 K/MM3 (134-434); RBC 4.01 M/mm3 (4.00-5.60); RDW 24.7 % (11.9-15.9)
[2020-05-07 09:10] LABS: ALBUMIN 1.9 g/dl (3.4-5.0); BLOOD UREA NITROGEN 60.6 mg/dL (7-18); CALCIUM 9.6 mg/dL (8.5-10.1); MAGNESIUM 2.2 mg/dL (1.8-2.4)
[2020-05-07 09:13] LABS: CREATININE 1.5 mg/dL (0.55-1.3)
[2020-05-07 09:15] LABS: TOT PROT 6.4 g/dl (6.4-8.2)
[2020-05-07 09:17] LABS: BILIRUBIN,TOTAL 0.7 mg/dL (0.2-1)
[2020-05-07] MEDS: SODIUM ZIRCONIUM CYCLOSILICATE (LOKELMA) 5 GM PACKET PO SCH (09:40)
[2020-05-07] MEDS: LIDOCAINE 5% TOPICAL PATCH TP SCH (09:40)
[2020-05-07] MEDS: AMINO ACIDS/PROTEIN HYDROLYS 30 ML LIQUID.PKT PO SCH ×3 (09:40→17:02)
[2020-05-07] MEDS: METOPROLOL TARTRATE 25 MG TABLET (FP) PO SCH ×3 (09:41→22:20)
[2020-05-07] MEDS: POLYETHYLENE GLYCOL 3350 119 GM BTL PO SCH (09:41)
[2020-05-07] MEDS: PANTOPRAZOLE 40 MG TABLET PO SCH (09:42)
[2020-05-07] MEDS: ACETAMINOPHEN 325 MG TABLET (FP) PO PRN (09:44)
[2020-05-07] MEDS ORDERED: FENTANYL PATCH WASTE TD PRN (09:48)
[2020-05-07 11:03] LABS: ANISOCYTOSIS 2+; MACROCYTOSIS 0; PLATELET ESTIMATE NORMAL
[2020-05-07] MEDS: fentaNYL 50mcg/hr PATCH.TD72 TD SCH (11:39)
[2020-05-07] MEDS: FENTANYL PATCH WASTE MC PRN (11:42)
[2020-05-07] MEDS: LIDOCAINE PATCH REMOVAL MC SCH (22:17)
[2020-05-08] MEDS ORDERED: MEROPENEM 1 GM VIAL (RESTRICTED TO ID) IVPB ONE ×2 (01:11→09:26)
[2020-05-08] MEDS ORDERED: DEXTROSE 5%-WATER 100 ML IVPB ONE ×2 (01:11→09:26)
[2020-05-08] MEDS: MEROPENEM 1 GM in DEXTROSE 5%-WATER 100 ML IVPB SCH ×2 (01:29→09:39)
[2020-05-08] MEDS: HEPARIN NA (PORCINE) 5,000 UNITS/ML 1ML VIAL SQ SCH ×3 (06:05→21:14)
[2020-05-08] MEDS: CYCLOBENZAPRINE HCL 5 MG TABLET PO SCH ×3 (06:05→21:13)
[2020-05-08] MEDS: traMADol HCL 50 MG TABLET PO PRN ×3 (06:10→21:13)
[2020-05-08 08:20] LABS: BASO % 0.6 % (0-2.0); EOS % 0.4 % (0-4.5); HEMATOCRIT 30.4 % (35.4-49); LYMPH % 3.1 % (8-40); MCH 27.1 pg (25.7-33.7); MCHC 32.8 g/dl (32.0-35.9); MEAN CELL VOLUME 82.5 fl (80-96); MEAN PLT VOLUME 8.3 fl (7.5-11.1); MONO % 8.2 % (3.8-10.2); NEUT % 87.7 % (42.8-82.8); PLATELET COUNT 400 K/MM3 (134-434); RBC 3.68 M/mm3 (4.00-5.60); RDW 24.6 % (11.9-15.9); WHITE BLOOD COUNT 27.9 K/mm3 (4.0-10.0)
[2020-05-08 08:46] LABS: POTASSIUM 5.3 mmol/L (3.5-5.1)
[2020-05-08 08:52] LABS: CALCIUM 9.4 mg/dL (8.5-10.1)
[2020-05-08 08:53] LABS: ALBUMIN 1.7 g/dl (3.4-5.0); BLOOD UREA NITROGEN 68.8 mg/dL (7-18); MAGNESIUM 2.2 mg/dL (1.8-2.4)
[2020-05-08 08:56] LABS: CREATININE 1.6 mg/dL (0.55-1.3)
[2020-05-08 08:57] LABS: BILIRUBIN,TOTAL 0.5 mg/dL (0.2-1)
[2020-05-08] MEDS: AMINO ACIDS/PROTEIN HYDROLYS 30 ML LIQUID.PKT PO SCH (09:06)
[2020-05-08] MEDS ORDERED: IRON SUCROSE INJECTION 200 MG in SODIUM CHLORIDE 90 ML IVPB ONE (09:25)
[2020-05-08] MEDS: METOPROLOL TARTRATE 25 MG TABLET (FP) PO SCH ×2 (09:39→21:13)
[2020-05-08] MEDS: LIDOCAINE 5% TOPICAL PATCH TP SCH (09:39)
[2020-05-08] MEDS: PANTOPRAZOLE 40 MG TABLET PO SCH (09:39)
[2020-05-08] MEDS: POLYETHYLENE GLYCOL 3350 119 GM BTL PO SCH (09:40)
[2020-05-08 13:05] LABS: ANISOCYTOSIS 1+; MACROCYTOSIS 1+; PLATELET ESTIMATE NORMAL
[2020-05-08] MEDS: SODIUM ZIRCONIUM CYCLOSILICATE (LOKELMA) 5 GM PACKET PO SCH (16:37)
[2020-05-08] MEDS: LIDOCAINE PATCH REMOVAL MC SCH (21:14)
[2020-05-09] MEDS: HEPARIN NA (PORCINE) 5,000 UNITS/ML 1ML VIAL SQ SCH (06:25)
[2020-05-09] MEDS: CYCLOBENZAPRINE HCL 5 MG TABLET PO SCH ×3 (06:25→21:39)
[2020-05-09] MEDS: traMADol HCL 50 MG TABLET PO PRN ×3 (06:25→22:55)
[2020-05-09 07:52] LABS: BASO % 0.1 % (0-2.0); EOS % 0.3 % (0-4.5); HEMATOCRIT 30.6 % (35.4-49); HEMOGLOBIN 9.8 GM/dL (11.7-16.9); MCH 26.9 pg (25.7-33.7); MCHC 31.9 g/dl (32.0-35.9); MEAN CELL VOLUME 84.4 fl (80-96); MEAN PLT VOLUME 8.4 fl (7.5-11.1); MONO % 9.2 % (3.8-10.2); NEUT % 87.4 % (42.8-82.8); PLATELET COUNT 389 K/MM3 (134-434); RBC 3.63 M/mm3 (4.00-5.60); RDW 24.4 % (11.9-15.9); WHITE BLOOD COUNT 25.4 K/mm3 (4.0-10.0)
[2020-05-09 08:12] LABS: POTASSIUM 4.7 mmol/L (3.5-5.1)
[2020-05-09 08:42] LABS: ALBUMIN 1.8 g/dl (3.4-5.0); BLOOD UREA NITROGEN 73.5 mg/dL (7-18); CALCIUM 9.8 mg/dL (8.5-10.1); MAGNESIUM 2.5 mg/dL (1.8-2.4)
[2020-05-09 08:47] LABS: BILIRUBIN,TOTAL 0.4 mg/dL (0.2-1); TOT PROT 6.2 g/dl (6.4-8.2)
[2020-05-09] MEDS: METOPROLOL TARTRATE 25 MG TABLET (FP) PO SCH ×2 (09:10→21:38)
[2020-05-09] MEDS: LIDOCAINE 5% TOPICAL PATCH TP SCH (09:10)
[2020-05-09] MEDS: PANTOPRAZOLE 40 MG TABLET PO SCH (09:10)
[2020-05-09] MEDS: SODIUM ZIRCONIUM CYCLOSILICATE (LOKELMA) 5 GM PACKET PO SCH (09:10)
[2020-05-09] MEDS: POLYETHYLENE GLYCOL 3350 119 GM BTL PO SCH (09:11)
[2020-05-09 12:36] LABS: ANISOCYTOSIS 1+; MACROCYTOSIS 1+; PLATELET ESTIMATE NORMAL
[2020-05-09] MEDS: ACETAMINOPHEN 325 MG TABLET (FP) PO PRN (21:38)
[2020-05-09] MEDS: LIDOCAINE PATCH REMOVAL MC SCH (21:39)
[2020-05-10] MEDS: CYCLOBENZAPRINE HCL 5 MG TABLET PO SCH ×3 (05:49→21:24)
[2020-05-10] MEDS: traMADol HCL 50 MG TABLET PO PRN ×2 (05:49→18:24)
[2020-05-10 07:01] LABS: BASO % 0.3 % (0-2.0); EOS % 0.6 % (0-4.5); HEMATOCRIT 30.2 % (35.4-49); HEMOGLOBIN 9.9 GM/dL (11.7-16.9); LYMPH % 2.8 % (8-40); MCH 27.4 pg (25.7-33.7); MCHC 32.9 g/dl (32.0-35.9); MEAN CELL VOLUME 83.2 fl (80-96); NEUT % 87.3 % (42.8-82.8); PLATELET COUNT 363 K/MM3 (134-434); RBC 3.63 M/mm3 (4.00-5.60); RDW 23.8 % (11.9-15.9); WHITE BLOOD COUNT 25.1 K/mm3 (4.0-10.0)
[2020-05-10 07:30] LABS: POTASSIUM 4.9 mmol/L (3.5-5.1)
[2020-05-10 07:36] LABS: ALBUMIN 1.8 g/dl (3.4-5.0); BLOOD UREA NITROGEN 86.8 mg/dL (7-18)
[2020-05-10 07:37] LABS: MAGNESIUM 2.4 mg/dL (1.8-2.4)
[2020-05-10 07:39] LABS: CREATININE 2.2 mg/dL (0.55-1.3)
[2020-05-10 07:41] LABS: BILIRUBIN,TOTAL 0.7 mg/dL (0.2-1)
[2020-05-10] MEDS ORDERED: PT OWN MED DRAWER 7, Y5N ONE (09:05)
[2020-05-10] MEDS: METOPROLOL TARTRATE 25 MG TABLET (FP) PO SCH ×2 (09:27→21:23)
[2020-05-10] MEDS: SODIUM ZIRCONIUM CYCLOSILICATE (LOKELMA) 5 GM PACKET PO SCH (09:28)
[2020-05-10] MEDS: LIDOCAINE 5% TOPICAL PATCH TP SCH (09:28)
[2020-05-10] MEDS: PANTOPRAZOLE 40 MG TABLET PO SCH (09:28)
[2020-05-10] MEDS: fentaNYL 50mcg/hr PATCH.TD72 TD SCH (09:29)
[2020-05-10 09:30] LABS: ANISOCYTOSIS 1+; MACROCYTOSIS 0; PLATELET ESTIMATE NORMAL
[2020-05-10] MEDS: POLYETHYLENE GLYCOL 3350 119 GM BTL PO SCH (09:50)
[2020-05-10] MEDS: FENTANYL PATCH WASTE MC PRN (09:59)
[2020-05-10] MEDS: HEPARIN NA (PORCINE) 5,000 UNITS/ML 1ML VIAL SQ SCH (21:24)
[2020-05-10] MEDS: ACETAMINOPHEN 325 MG TABLET (FP) PO PRN (21:24)
[2020-05-10 23:27] LABS: EPI CELLS 12 /uL (0-25.1); HYALINE CASTS 2 /uL (0-3.1); URINE APPEARANCE CLOUDY; URINE BACTERIA 3667 /uL (0-1359); URINE BILIRUBIN NEGATIVE (NEGATIVE); URINE COLOR YELLOW; URINE GLUCOSE (UA) NEGATIVE (NEGATIVE); URINE KETONE NEGATIVE (NEGATIVE); URINE LEUK ESTERASE 3+ (NEGATIVE); URINE NITRITE NEGATIVE (NEGATIVE); URINE PROTEIN 1+ (NEGATIVE); URINE UROBILINOGEN 0.2 mg/dL (0.2-1.0); URINE WBC 1615 /uL (0-25.8)
[2020-05-11] MEDS: LIDOCAINE PATCH REMOVAL MC SCH ×2 (01:47→21:30)
[2020-05-11] MEDS: traMADol HCL 50 MG TABLET PO PRN (02:13)
[2020-05-11] MEDS: CYCLOBENZAPRINE HCL 5 MG TABLET PO SCH ×3 (06:41→21:17)
[2020-05-11 08:24] LABS: BASO % 0.3 % (0-2.0); EOS % 0.8 % (0-4.5); HEMATOCRIT 26.7 % (35.4-49); HEMOGLOBIN 8.8 GM/dL (11.7-16.9); LYMPH % 2.7 % (8-40); MCH 27.4 pg (25.7-33.7); MCHC 32.8 g/dl (32.0-35.9); MEAN CELL VOLUME 83.6 fl (80-96); MEAN PLT VOLUME 8.1 fl (7.5-11.1); MONO % 8.6 % (3.8-10.2); NEUT % 87.6 % (42.8-82.8); PLATELET COUNT 365 K/MM3 (134-434); RBC 3.19 M/mm3 (4.00-5.60); RDW 23.2 % (11.9-15.9); WHITE BLOOD COUNT 20.7 K/mm3 (4.0-10.0)
[2020-05-11 08:33] LABS: CALCIUM 10.2 mg/dL (8.5-10.1)
[2020-05-11 08:34] LABS: ALBUMIN 1.7 g/dl (3.4-5.0); BLOOD UREA NITROGEN 94.4 mg/dL (7-18); MAGNESIUM 2.4 mg/dL (1.8-2.4)
[2020-05-11 08:37] LABS: CREATININE 2.6 mg/dL (0.55-1.3)
[2020-05-11 08:38] LABS: BILIRUBIN,TOTAL 0.6 mg/dL (0.2-1); TOT PROT 5.9 g/dl (6.4-8.2)
[2020-05-11 10:16] LABS: ANISOCYTOSIS 2+; MACROCYTOSIS 0; PLATELET ESTIMATE NORMAL
[2020-05-11] MEDS: HEPARIN NA (PORCINE) 5,000 UNITS/ML 1ML VIAL SQ SCH ×2 (10:55→21:16)
[2020-05-11] MEDS: PANTOPRAZOLE 40 MG TABLET PO SCH (10:55)
[2020-05-11] MEDS: LIDOCAINE 5% TOPICAL PATCH TP SCH (10:56)
[2020-05-11] MEDS: POLYETHYLENE GLYCOL 3350 119 GM BTL PO SCH (10:56)
[2020-05-11] MEDS: SODIUM ZIRCONIUM CYCLOSILICATE (LOKELMA) 5 GM PACKET PO SCH (10:57)
[2020-05-11] MEDS: ACETAMINOPHEN 325 MG TABLET (FP) PO PRN ×2 (10:59→21:17)
[2020-05-11] MEDS: METOPROLOL TARTRATE 25 MG TABLET (FP) PO SCH ×2 (11:01→21:17)
[2020-05-11] MEDS ORDERED: SODIUM CHLORIDE 1,000 ML IV SCH (17:00)
[2020-05-12] MEDS: CYCLOBENZAPRINE HCL 5 MG TABLET PO SCH (06:13)
[2020-05-12] MEDS: traMADol HCL 50 MG TABLET PO PRN (06:13)
[2020-05-12 08:34] LABS: BASO % 0.4 % (0-2.0); EOS % 0.4 % (0-4.5); HEMATOCRIT 26.7 % (35.4-49); HEMOGLOBIN 8.8 GM/dL (11.7-16.9); MCH 27.5 pg (25.7-33.7); MCHC 32.9 g/dl (32.0-35.9); MEAN CELL VOLUME 83.7 fl (80-96); MEAN PLT VOLUME 7.9 fl (7.5-11.1); MONO % 8.2 % (3.8-10.2); PLATELET COUNT 381 K/MM3 (134-434); RBC 3.19 M/mm3 (4.00-5.60); RDW 23.1 % (11.9-15.9); WHITE BLOOD COUNT 19.5 K/mm3 (4.0-10.0)
[2020-05-12 08:58] LABS: POTASSIUM 4.7 mmol/L (3.5-5.1)
[2020-05-12 09:05] LABS: ALBUMIN 1.6 g/dl (3.4-5.0); BLOOD UREA NITROGEN 98.1 mg/dL (7-18); CALCIUM 9.7 mg/dL (8.5-10.1)
[2020-05-12 09:06] LABS: MAGNESIUM 2.4 mg/dL (1.8-2.4)
[2020-05-12 09:07] LABS: BILIRUBIN,TOTAL 0.4 mg/dL (0.2-1)
[2020-05-12 09:08] LABS: CREATININE 2.6 mg/dL (0.55-1.3); TOT PROT 6.1 g/dl (6.4-8.2)
[2020-05-12] MEDS ORDERED: PT OWN MED DRAWER 7, Y5N ONE (10:15)
[2020-05-12] MEDS: HEPARIN NA (PORCINE) 5,000 UNITS/ML 1ML VIAL SQ SCH (10:19)
[2020-05-12] MEDS: SODIUM ZIRCONIUM CYCLOSILICATE (LOKELMA) 5 GM PACKET PO SCH (10:20)
[2020-05-12] MEDS: LIDOCAINE 5% TOPICAL PATCH TP SCH (10:20)
[2020-05-12] MEDS: PANTOPRAZOLE 40 MG TABLET PO SCH (10:21)
[2020-05-12] MEDS: METOPROLOL TARTRATE 25 MG TABLET (FP) PO SCH (10:21)
[2020-05-12] MEDS ORDERED: traMADol HCL 50 MG TABLET PO PRN (10:23)
[2020-05-12] MEDS: POLYETHYLENE GLYCOL 3350 119 GM BTL PO SCH (10:30)
[2020-05-12 12:00] LABS: ANISOCYTOSIS 1+; MACROCYTOSIS 1+; PLATELET ESTIMATE NORMAL
[2020-05-12 14:13] VITALS: BP 97/56; PULSE 103; TEMP 97.4
== END 2020-05-12 14:25 | DRG 457 ==
LOC: JER 11:34 → JERBED 18:22 → J7W 04-26 06:57
PROVIDERS: ATTEND Nurse Practitioner Family
PROC: 0SG3071 Fusion of Lumbosacral Joint with Autologous Tissue Substitute, Posterior Approach, Posterior Column, Open Approach (ICD-10-PCS; 2020-04-26)
PROC: 0JX70ZZ Transfer Back Subcutaneous Tissue and Fascia, Open Approach (ICD-10-PCS; 2020-04-26)
PROC: 01NB0ZZ Release Lumbar Nerve, Open Approach (ICD-10-PCS; 2020-04-26)
PROC: 00BY0ZZ Excision of Lumbar Spinal Cord, Open Approach (ICD-10-PCS; 2020-04-26)
PROC: B01BZZZ Fluoroscopy of Spinal Cord (ICD-10-PCS; 2020-04-26)
PROC: 0SG1071 Fusion of 2 or more Lumbar Vertebral Joints with Autologous Tissue Substitute, Posterior Approach, Posterior Column, Open Approach (ICD-10-PCS; principal; 2020-04-26 10:30)
DX: C79.51 Secondary malignant neoplasm of bone (principal); G83.4 Cauda equina syndrome; K52.0 Gastroenteritis and colitis due to radiation; C79.89 Secondary malignant neoplasm of other specified sites; R64 Cachexia; G95.29 Other cord compression; C77.2 Secondary and unspecified malignant neoplasm of intra-abdominal lymph nodes; E46 Unspecified protein-calorie malnutrition; M48.062 Spinal stenosis, lumbar region with neurogenic claudication; M54.16 Radiculopathy, lumbar region; I12.9 Hypertensive chronic kidney disease with stage 1 through stage 4 chronic kidney disease, or unspecified chronic kidney disease; N18.30 Chronic kidney disease, stage 3 unspecified; K59.03 Drug induced constipation; K80.20 Calculus of gallbladder without cholecystitis without obstruction; E87.5 Hyperkalemia; Z68.21 Body mass index [BMI] 21.0-21.9, adult; K21.9 Gastro-esophageal reflux disease without esophagitis; G62.9 Polyneuropathy, unspecified; D49.2 Neoplasm of unspecified behavior of bone, soft tissue, and skin; E78.5 Hyperlipidemia, unspecified; R62.7 Adult failure to thrive; C67.9 Malignant neoplasm of bladder, unspecified; R00.0 Tachycardia, unspecified; T40.2X5A Adverse effect of other opioids, initial encounter; D72.829 Elevated white blood cell count, unspecified; Z90.5 Acquired absence of kidney; Z85.46 Personal history of malignant neoplasm of prostate; Z98.890 Other specified postprocedural states
CPT/HCPCS: 36415; 36430; 71045-TC-FY; 72131-TC; 72148-TC; 74176-TC; 76000-TC-FY; 80048; 80053; 81003; 83605; 83735; 84100; 84132; 85025; 85610; 85730; 86850; 86900; 86901; 86922; 87040; 87086; 88307-TC; 88311-TC; 88331-TC; 88341-TC; 93005; 93010; 94760; 97116-GP; 97162-GP; 99285-25; C9803; J0131; J1100; J1644; J1756; P9058; U0003

== ENCOUNTER 2020-05-24 10:33 | Inpatient (IN) | payer OTHER ==
[2020-05-24] MEDS ORDERED: SODIUM CHLORIDE 1,000 ML IV STA ×4 (10:51→16:42)
[2020-05-24] MEDS ORDERED: CEFTRIAXONE 1,000 MG in DEXTROSE 5%-WATER - 50 ML IVPB ONE (11:27)
[2020-05-24] MEDS ORDERED: VANCOMYCIN 1 GM in D5W (PRE-DOCKED) 1,000 MG/250 ML IVPB ONE (11:27)
[2020-05-24] MEDS ORDERED: VANCOMYCIN 1 GRAM (PRE-DOCKED) 1,000 MG/250 ML BAG IVPB ONE (11:37)
[2020-05-24] MEDS ORDERED: CEFTRIAXONE 1 GM/50 ML BAG ONE (11:38)
[2020-05-24 11:40] LABS: EOS % 0.2 % (0-4.5); HEMOGLOBIN 10.3 GM/dL (11.7-16.9); LYMPH % 2.5 % (8-40); MEAN PLT VOLUME 9.3 fl (7.5-11.1); MONO % 2.6 % (3.8-10.2); NEUT % 94.7 % (42.8-82.8); PLATELET COUNT 729 K/MM3 (134-434); RBC 3.67 M/mm3 (4.00-5.60); RDW 22.1 % (11.9-15.9)
[2020-05-24 11:50] LABS: INR 1.33 (0.83-1.09); PROTHROMBIN TIME (PATIENT) 16.2 SEC (9.7-13.0)
[2020-05-24 11:51] LABS: WHITE BLOOD COUNT 45.9 K/mm3 (4.0-10.0)
[2020-05-24 11:53] LABS: ACTIVATED PTT 27.4 SECONDS (25.2-36.5)
[2020-05-24 11:55] LABS: CHLORIDE 116 mmol/L (98-107); SODIUM 148 mmol/L (136-145)
[2020-05-24 11:58] LABS: ALBUMIN 1.6 g/dl (3.4-5.0); CALCIUM 10.9 mg/dL (8.5-10.1); CO2 10 mmol/L (21-32); GLUCOSE,RANDOM 204 mg/dL (74-106)
[2020-05-24 12:02] LABS: BILIRUBIN,DIRECT 0.2 mg/dL (0.0-0.2); CREATININE 4.8 mg/dL (0.55-1.3); LDH 745 U/L (87-246); SGOT/AST 100 U/L (15-37); SGPT/ALT 68 U/L (13-61)
[2020-05-24 12:03] LABS: BILIRUBIN,TOTAL 0.4 mg/dL (0.2-1); TOT PROT 6.2 g/dl (6.4-8.2)
[2020-05-24] MEDS ORDERED: MIDAZOLAM HCL 2 MG/2 ML SINGLE DOSE VIAL IVPUSH ONE ×4 (12:34→23:59)
[2020-05-24] MEDS ORDERED: MIDAZOLAM HCL 2 MG/2 ML SINGLE DOSE VIAL ONE ×3 (12:35→15:43)
[2020-05-24 12:47] LABS: ALK PHOS 340 U/L (45-117); ANION GAP 22 MMOL/L (8-16)
[2020-05-24 12:48] LABS: HEMATOCRIT 34.5 % (35.4-49); MCH 28.1 pg (25.7-33.7); MCHC 30.6 g/dl (32.0-35.9)
[2020-05-24 13:00] LABS: POTASSIUM 6.2 mmol/L (3.5-5.1)
[2020-05-24 13:01] LABS: BLOOD UREA NITROGEN 210.1 mg/dL (7-18)
[2020-05-24] MEDS ORDERED: INSULIN REGULAR HUMAN 100 UNITS/ML *VIAL IVPUSH ONE (13:10)
[2020-05-24] MEDS ORDERED: DEXTROSE 50%-WATER - 25 GM/50 ML VIAL IVPUSH ONE (13:10)
[2020-05-24] MEDS ORDERED: CALCIUM GLUCONATE 10% - 1,000 MG/10 ML VIAL IVPUSH ONE (13:10)
[2020-05-24] MEDS ORDERED: CALCIUM CHLORIDE 1 GM/10 ML *DISP.SYRIN ONE (13:20)
[2020-05-24] MEDS ORDERED: DEXTROSE 50%-WATER 25 GM/50 ML DISP.SYRIN ONE (13:20)
[2020-05-24 13:39] LABS: PLATELET ESTIMATE INCREASED
[2020-05-24] MEDS ORDERED: SODIUM CHLORIDE 1,000 ML IV SCH ×3 (13:45→23:45)
[2020-05-24 13:52] LABS: ROULEAU 1+
[2020-05-24] MEDS ORDERED: CEFTRIAXONE 1 GM in DEXTROSE 5%-WATER - 50 ML IVPB ONE (14:00)
[2020-05-24 14:19] LABS: EPI CELLS 7 /uL (0-25.1); HYALINE CASTS 606 /uL (0-3.1); URINE APPEARANCE Turbid; URINE BACTERIA >9,000 /uL (0-1359); URINE BILIRUBIN Negative (NEGATIVE); URINE COLOR Yellow; URINE GLUCOSE (UA) Negative (NEGATIVE); URINE KETONE Negative (NEGATIVE); URINE LEUK ESTERASE Large (NEGATIVE); URINE NITRITE Negative (NEGATIVE); URINE PROTEIN 30 (NEGATIVE); URINE UROBILINOGEN 0.2 mg/dL (0.2-1.0); URINE WBC 379 /uL (0-25.8)
[2020-05-24] MEDS: FENTANYL IVPB 500 MCG/100 ML BAG IVPB SCH (14:30)
[2020-05-24] MEDS ORDERED: FENTANYL IVPB 500 MCG/100 ML BAG IVPB ONE (14:37)
[2020-05-24 14:49] LABS: URINE RBC 33.8 /uL (0-23.9)
[2020-05-24 15:44] LABS: N-TERMINAL BNP 1561.6 pg/ml (5-125)
[2020-05-24] MEDS: DEXMEDETOMIDINE IN 0.9 % NACL 400 MCG/100 ML VIAL IVPB SCH (15:50)
[2020-05-24] MEDS ORDERED: ETOMIDATE 20 MG/10 ML AMPUL IVPUSH ONE ×2 (15:51→18:45)
[2020-05-24] MEDS ORDERED: ETOMIDATE 40 MG/20 ML VIAL IVPUSH ONE (16:30)
[2020-05-24] MEDS: VASOPRESSIN 40 UNITS in SODIUM CHLORIDE 98 ML IVPB SCH (16:40)
[2020-05-24] MEDS ORDERED: MEROPENEM 1 GM VIAL (RESTRICTED TO ID) IVPB ONE (16:51)
[2020-05-24] MEDS ORDERED: DEXTROSE 5%-WATER 100 ML IVPB ONE (16:51)
[2020-05-24] MEDS ORDERED: VASOPRESSIN 20 UNITS/ML VIAL IV ONE (16:52)
[2020-05-24] MEDS: FAMOTIDINE 20 MG TABLET PO SCH (16:59)
[2020-05-24] MEDS: MEROPENEM 1 GM in DEXTROSE 5%-WATER 100 ML IVPB SCH (17:30)
[2020-05-24] MEDS: INSULIN SLIDING SCALE (NOVOLOG) 1 VIAL SQ SCH ×2 (18:00→22:22)
[2020-05-24 18:03] LABS: CALCIUM 9.7 mg/dL (8.5-10.1); POTASSIUM 5.4 mmol/L (3.5-5.1)
[2020-05-24 18:08] LABS: CREATININE 3.6 mg/dL (0.55-1.3)
[2020-05-24] MEDS ORDERED: HEPARIN NA (PORCINE) 5,000 UNITS/ML 1ML VIAL IVPUSH ONE (18:35)
[2020-05-24] MEDS ORDERED: HEPARIN NA (PORCINE) 5,000 UNITS/ML 1ML VIAL IVPUSH PRN ×2 (18:35)
[2020-05-24] MEDS ORDERED: HEPARIN INFUSION - 25,000 UNITS/500 ML INFUS.BAG IVPB SCH (18:45)
[2020-05-24] MEDS ORDERED: MIDAZOLAM 100 MG/100 ML MG IVPB ONE (20:26)
[2020-05-24] MEDS ORDERED: FENTANYL NS IVPB 500 MCG/100 ML BAG IVPB ONE ×2 (20:29→23:05)
[2020-05-24] MEDS ORDERED: MIDAZOLAM 100 MG in SODIUM CHLORIDE 100 ML IVPB SCH (20:30)
[2020-05-24] MEDS: MIDAZOLAM 100 MG/100 ML MG IVPB SCH (20:45)
[2020-05-24] MEDS ORDERED: HEPARIN NA (PORCINE) 5,000 UNITS/ML 1ML VIAL SQ SCH (22:00)
[2020-05-24] MEDS ORDERED: NOREPINEPHRINE NS PREMIX 16,000 MCG/500 ML BAG IVPB ONE (22:02)
[2020-05-24] MEDS ORDERED: PHENYLEPHRINE HCL 10 MG/1 ML SINGLE DOSE VIAL ONE ×2 (22:04→22:10)
[2020-05-24] MEDS ORDERED: PHENYLEPHRINE NS PREMIX 50,000 MCG/500 ML BAG CVP SCH (22:15)
[2020-05-24] MEDS: MUPIROCIN 2% TOPICAL OINTMENT FOR DECOLONIZATION NS SCH (22:16)
[2020-05-24] MEDS: CHLORHEXIDINE GLUCONATE 4% CLEANSER FOR DECOLONIZATION TP SCH (22:16)
[2020-05-24] MEDS: NOREPINEPHRINE BITARTRATE 16,000 MCG in SODIUM CHLORIDE 484 ML IV SCH (23:07)
[2020-05-25] MEDS ORDERED: ACETAMINOPHEN 1000 MG/100 ML VIAL (NON FORMULARY) IVPB ONE (00:22)
[2020-05-25] MEDS ORDERED: SODIUM CHLORIDE 1,000 ML IV STA ×2 (00:52→02:57)
[2020-05-25 01:44] LABS: ARTERIAL BLD GAS O2 SATURATION 99.5 mmHg (95-98); ARTERIAL BLOOD GAS BASE EXCESS -19.5 mmol/L (-2-2); ARTERIAL BLOOD GAS PO2 319.8 mmHg (80-100)
[2020-05-25 01:45] LABS: ALLENS TEST POSITIVE; VENT MODE A/C
[2020-05-25 01:46] LABS: VENT RATE 12
[2020-05-25 01:47] LABS: ARTERIAL BLOOD GAS pH 7.087 (7.350-7.450)
[2020-05-25] MEDS ORDERED: MEROPENEM 1 GM VIAL (RESTRICTED TO ID) IVPB ONE ×2 (02:10→16:48)
[2020-05-25] MEDS ORDERED: DEXTROSE 5%-WATER 100 ML IVPB ONE ×2 (02:10→16:48)
[2020-05-25] MEDS ORDERED: HEPARIN INFUSION - 25,000 UNITS/500 ML INFUS.BAG IVPB SCH (03:00)
[2020-05-25] MEDS ORDERED: HEPARIN NA (PORCINE) 5,000 UNITS/ML 1ML VIAL IVPUSH PRN (03:00)
[2020-05-25] MEDS ORDERED: SODIUM BICARBONATE 8.4% 50 MEQ/50 ML VIAL IVPUSH ONE (03:00)
[2020-05-25] MEDS: MEROPENEM 1 GM in DEXTROSE 5%-WATER 100 ML IVPB SCH ×2 (03:05→16:49)
[2020-05-25] MEDS ORDERED: SODIUM BICARBONATE 8.4% - 50 ML ONE (03:06)
[2020-05-25] MEDS ORDERED: PHENYLEPHRINE NS PREMIX 10,000 MCG/100 ML BAG CVP SCH (05:45)
[2020-05-25] MEDS ORDERED: DEXTROSE 50%-WATER - 25 GM/50 ML VIAL IVPUSH ONE ×4 (05:50→17:31)
[2020-05-25] MEDS ORDERED: DEXTROSE 50%-WATER 25 GM/50 ML DISP.SYRIN ONE ×4 (05:51→23:44)
[2020-05-25] MEDS: HEPARIN INFUSION - 25,000 UNITS/500 ML INFUS.BAG IVPB SCH ×2 (06:36→23:18)
[2020-05-25] MEDS: INSULIN SLIDING SCALE (NOVOLOG) 1 VIAL SQ SCH ×4 (06:37→21:58)
[2020-05-25 07:49] LABS: BASO % 0.2 % (0-2.0); EOS % 0.1 % (0-4.5); HEMATOCRIT 24.7 % (35.4-49); HEMOGLOBIN 7.7 GM/dL (11.7-16.9); LYMPH % 3.3 % (8-40); MCH 28.6 pg (25.7-33.7); MEAN PLT VOLUME 9.2 fl (7.5-11.1); MONO % 1.5 % (3.8-10.2); NEUT % 94.9 % (42.8-82.8); PLATELET COUNT 405 K/MM3 (134-434); RBC 2.68 M/mm3 (4.00-5.60); WHITE BLOOD COUNT 28.5 K/mm3 (4.0-10.0)
[2020-05-25] MEDS ORDERED: NOREPINEPHRINE D5W PREMIX 16,000 MCG/500 ML BAG IVPB ONE (08:07)
[2020-05-25 08:12] LABS: PHOSPHOROUS 6.9 mg/dL (2.5-4.9)
[2020-05-25] MEDS: HEPARIN NA (PORCINE) 5,000 UNITS/ML 1ML VIAL IVPUSH PRN (08:20)
[2020-05-25] MEDS ORDERED: HYDROCORTISONE SOD SUCCINATE 100 MG/2 ML VIAL IVPUSH ONE (09:23)
[2020-05-25 09:29] LABS: POTASSIUM 5.9 mmol/L (3.5-5.1)
[2020-05-25] MEDS ORDERED: LACTATED RINGERS SOLUTION 1,000 ML/1,000 ML INFUS.BAG IV SCH (09:30)
[2020-05-25 09:44] LABS: ALBUMIN 0.9 g/dl (3.4-5.0)
[2020-05-25 09:47] LABS: CALCIUM 7.6 mg/dL (8.5-10.1)
[2020-05-25 09:48] LABS: CREATININE 3.2 mg/dL (0.55-1.3)
[2020-05-25 09:54] LABS: BILIRUBIN,TOTAL 1.6 mg/dL (0.2-1)
[2020-05-25] MEDS: PANTOPRAZOLE SODIUM 40 MG VIAL IVPUSH SCH (10:00)
[2020-05-25] MEDS ORDERED: VANCOMYCIN 1 GM in D5W (PRE-DOCKED) 1,000 MG/250 ML IVPB SCH (10:00)
[2020-05-25 10:14] LABS: TOT PROT 3.8 g/dl (6.4-8.2)
[2020-05-25] MEDS ORDERED: INSULIN REGULAR HUMAN 100 UNITS/ML *VIAL IVPUSH ONE ×2 (10:27→17:30)
[2020-05-25] MEDS ORDERED: SODIUM BICARBONATE 8.4% 50 MEQ/50 ML DISP.SYRIN IVPUSH ONE ×3 (10:27→20:00)
[2020-05-25] MEDS ORDERED: CALCIUM GLUCONATE 10% - 1,000 MG/10 ML VIAL IVPUSH ONE (10:28)
[2020-05-25] MEDS: DOPAMINE 400 MG/D5W - 400,000 MCG/250 ML INFUS.BAG IVPB SCH (10:44)
[2020-05-25 10:48] LABS: BLOOD UREA NITROGEN 158.8 mg/dL (7-18)
[2020-05-25] MEDS: FAMOTIDINE 20 MG TABLET PO SCH (10:50)
[2020-05-25] MEDS ORDERED: SODIUM BICARBONATE 8.4% 50 MEQ/50 ML VIAL ONE (10:55)
[2020-05-25] MEDS ORDERED: SODIUM BICARBONATE 8.4% - 150 MEQ in DEXTROSE 5%-WATER - 1,000 ML IV SCH (11:00)
[2020-05-25] MEDS: SODIUM ZIRCONIUM CYCLOSILICATE (LOKELMA) 5 GM PACKET PO SCH (11:17)
[2020-05-25] MEDS: NOREPINEPHRINE BITARTRATE 16,000 MCG in SODIUM CHLORIDE 484 ML IV SCH ×2 (11:56→23:15)
[2020-05-25] MEDS ORDERED: cefTRIAXone SODIUM 1 GM VIAL ONE (12:59)
[2020-05-25] MEDS ORDERED: DEXTROSE 5%-WATER - 50 ML IVPB ONE (12:59)
[2020-05-25] MEDS: PHENYLEPHRINE NS PREMIX 50,000 MCG/500 ML BAG CVP SCH ×2 (13:33→23:05)
[2020-05-25] MEDS ORDERED: CEFTRIAXONE 1 GM in DEXTROSE 5%-WATER - 50 ML IVPB ONE (14:00)
[2020-05-25 14:08] LABS: ANISOCYTOSIS 1+; MACROCYTOSIS 0; PLATELET ESTIMATE NORMAL
[2020-05-25] MEDS ORDERED: PHENYLEPHRINE HCL 10 MG/1 ML SINGLE DOSE VIAL ONE ×2 (15:10→15:12)
[2020-05-25] MEDS ORDERED: PHENYLEPHRINE HCL 10 MG/1 ML SINGLE DOSE VIAL IVPB ONE ×2 (15:45→15:46)
[2020-05-25] MEDS: FLUDROCORTISONE ACETATE 0.1 MG TABLET (FP) PO SCH (16:41)
[2020-05-25] MEDS: FENTANYL IVPB 500 MCG/100 ML BAG IVPB SCH ×2 (16:41→23:07)
[2020-05-25 16:42] LABS: BASO % 0.3 % (0-2.0); HEMOGLOBIN 7.3 GM/dL (11.7-16.9); LYMPH % 1.8 % (8-40); MCH 27.8 pg (25.7-33.7); MCHC 29.4 g/dl (32.0-35.9); MEAN CELL VOLUME 94.5 fl (80-96); MEAN PLT VOLUME 9.7 fl (7.5-11.1); MONO % 2.3 % (3.8-10.2); NEUT % 95.6 % (42.8-82.8); PLATELET COUNT 353 K/MM3 (134-434); RBC 2.64 M/mm3 (4.00-5.60); RDW 22.7 % (11.9-15.9)
[2020-05-25] MEDS: SODIUM BICARBONATE 8.4% - 100 MEQ in DEXTROSE 5%-WATER - 1,000 ML IV SCH (16:42)
[2020-05-25] MEDS: MUPIROCIN 2% TOPICAL OINTMENT FOR DECOLONIZATION NS SCH ×2 (16:44→22:36)
[2020-05-25 16:49] LABS: WHITE BLOOD COUNT 37.9 K/mm3 (4.0-10.0)
[2020-05-25] MEDS: DEXMEDETOMIDINE IN 0.9 % NACL 400 MCG/100 ML VIAL IVPB SCH (16:50)
[2020-05-25 17:04] LABS: CALCIUM 7.5 mg/dL (8.5-10.1)
[2020-05-25 17:05] LABS: ALBUMIN 0.8 g/dl (3.4-5.0)
[2020-05-25 17:08] LABS: CREATININE 3.3 mg/dL (0.55-1.3)
[2020-05-25 17:09] LABS: BILIRUBIN,TOTAL 0.3 mg/dL (0.2-1); TOT PROT 3.5 g/dl (6.4-8.2)
[2020-05-25 17:21] LABS: BLOOD UREA NITROGEN 148.1 mg/dL (7-18); POTASSIUM 6.2 mmol/L (3.5-5.1)
[2020-05-25] MEDS: VASOPRESSIN 40 UNITS in SODIUM CHLORIDE 98 ML IVPB SCH ×2 (17:44→23:06)
[2020-05-25 18:03] LABS: ANISOCYTOSIS 2+; MACROCYTOSIS 0
[2020-05-25] MEDS: HYDROCORTISONE SOD SUCCINATE 100 MG/2 ML VIAL IVPB SCH ×2 (18:46→19:32)
[2020-05-25] MEDS ORDERED: SODIUM ZIRCONIUM CYCLOSILICATE (LOKELMA) 5 GM PACKET PO ONE (20:00)
[2020-05-25] MEDS: MIDAZOLAM 100 MG/100 ML MG IVPB SCH (21:31)
[2020-05-25] MEDS: CHLORHEXIDINE GLUCONATE 4% CLEANSER FOR DECOLONIZATION TP SCH (21:32)
[2020-05-26] MEDS: MIDAZOLAM 100 MG/100 ML MG IVPB SCH ×2 (01:00→23:54)
[2020-05-26] MEDS ORDERED: ACETAMINOPHEN 1000 MG/100 ML VIAL (NON FORMULARY) IVPB ONE (01:47)
[2020-05-26] MEDS: NOREPINEPHRINE BITARTRATE 16,000 MCG in SODIUM CHLORIDE 484 ML IV SCH (01:53)
[2020-05-26] MEDS: HYDROCORTISONE SOD SUCCINATE 100 MG/2 ML VIAL IVPB SCH ×4 (01:55→19:00)
[2020-05-26] MEDS: DOPAMINE 400 MG/D5W - 400,000 MCG/250 ML INFUS.BAG IVPB SCH ×2 (02:00→13:23)
[2020-05-26] MEDS ORDERED: MEROPENEM 1 GM VIAL (RESTRICTED TO ID) IVPB ONE ×2 (02:00→17:19)
[2020-05-26] MEDS ORDERED: DEXTROSE 5%-WATER 100 ML IVPB ONE ×2 (02:01→17:20)
[2020-05-26] MEDS ORDERED: DEXTROSE 50%-WATER 25 GM/50 ML DISP.SYRIN ONE ×2 (02:21→12:08)
[2020-05-26] MEDS: SODIUM BICARBONATE 8.4% - 100 MEQ in DEXTROSE 5%-WATER - 1,000 ML IV SCH ×3 (02:33→13:22)
[2020-05-26] MEDS ORDERED: DEXTROSE 50%-WATER - 25 GM/50 ML VIAL IVPUSH ONE ×3 (03:18→12:05)
[2020-05-26] MEDS: VASOPRESSIN 40 UNITS in SODIUM CHLORIDE 98 ML IVPB SCH ×3 (04:59→20:21)
[2020-05-26] MEDS: INSULIN SLIDING SCALE (NOVOLOG) 1 VIAL SQ SCH ×3 (06:39→17:47)
[2020-05-26 07:27] LABS: BASO % 0.1 % (0-2.0); HEMATOCRIT 22.2 % (35.4-49); MCH 27.8 pg (25.7-33.7); MCHC 30.6 g/dl (32.0-35.9); MEAN CELL VOLUME 90.8 fl (80-96); MEAN PLT VOLUME 9.8 fl (7.5-11.1); MONO % 2.6 % (3.8-10.2); NEUT % 96.3 % (42.8-82.8); PLATELET COUNT 218 K/MM3 (134-434); RBC 2.44 M/mm3 (4.00-5.60); RDW 22.4 % (11.9-15.9)
[2020-05-26 07:48] LABS: INR 1.78 (0.83-1.09); PROTHROMBIN TIME (PATIENT) 21.2 SEC (9.7-13.0)
[2020-05-26 07:56] LABS: HEMOGLOBIN 6.8 GM/dL (11.7-16.9); WHITE BLOOD COUNT 44.1 K/mm3 (4.0-10.0)
[2020-05-26 08:32] LABS: POTASSIUM 5.8 mmol/L (3.5-5.1)
[2020-05-26 08:35] LABS: MAGNESIUM 1.9 mg/dL (1.8-2.4)
[2020-05-26 08:36] LABS: ALBUMIN 0.7 g/dl (3.4-5.0)
[2020-05-26 08:38] LABS: CREATININE 3.3 mg/dL (0.55-1.3); PHOSPHOROUS 8.3 mg/dL (2.5-4.9)
[2020-05-26 09:05] LABS: BILIRUBIN,TOTAL 0.4 mg/dL (0.2-1); TOT PROT 3.2 g/dl (6.4-8.2)
[2020-05-26 09:19] LABS: BLOOD UREA NITROGEN 133.3 mg/dL (7-18); CALCIUM 6.6 mg/dL (8.5-10.1)
[2020-05-26] MEDS: HEPARIN INFUSION - 25,000 UNITS/500 ML INFUS.BAG IVPB SCH ×2 (09:21→20:18)
[2020-05-26] MEDS: MEROPENEM 1 GM in DEXTROSE 5%-WATER 100 ML IVPB SCH ×2 (09:22→17:37)
[2020-05-26 09:41] LABS: ANISOCYTOSIS 0; MACROCYTOSIS 0; PLATELET ESTIMATE NORMAL
[2020-05-26] MEDS: PANTOPRAZOLE SODIUM 40 MG VIAL IVPUSH SCH (10:02)
[2020-05-26] MEDS: MUPIROCIN 2% TOPICAL OINTMENT FOR DECOLONIZATION NS SCH ×2 (10:02→23:54)
[2020-05-26] MEDS: FLUDROCORTISONE ACETATE 0.1 MG TABLET (FP) PO SCH (10:02)
[2020-05-26] MEDS: SODIUM ZIRCONIUM CYCLOSILICATE (LOKELMA) 5 GM PACKET PO SCH ×2 (10:02→23:54)
[2020-05-26] MEDS: FAMOTIDINE 20 MG TABLET PO SCH (10:03)
[2020-05-26] MEDS ORDERED: SODIUM BICARBONATE 8.4% 50 MEQ/50 ML DISP.SYRIN IVPUSH ONE (14:04)
[2020-05-26] MEDS: FENTANYL IVPB 500 MCG/100 ML BAG IVPB SCH ×2 (14:38)
[2020-05-26] MEDS ORDERED: CALCIUM GLUCONATE 10% - 1,000 MG/10 ML VIAL IVPB ONE (15:04)
[2020-05-26] MEDS: PHENYLEPHRINE NS PREMIX 50,000 MCG/500 ML BAG CVP SCH (17:39)
[2020-05-26] MEDS ORDERED: NOREPINEPHRINE NS PREMIX 16,000 MCG/500 ML BAG IVPB ONE (19:37)
[2020-05-26] MEDS: CHLORHEXIDINE GLUCONATE 4% CLEANSER FOR DECOLONIZATION TP SCH (23:54)
[2020-05-27] MEDS ORDERED: DEXTROSE 50%-WATER 25 GM/50 ML DISP.SYRIN ONE (00:09)
[2020-05-27] MEDS ORDERED: DEXTROSE 50%-WATER - 25 GM/50 ML VIAL IVPUSH ONE (00:20)
[2020-05-27] MEDS: NOREPINEPHRINE BITARTRATE 16,000 MCG in SODIUM CHLORIDE 484 ML IV SCH ×2 (00:21→18:28)
[2020-05-27] MEDS: INSULIN SLIDING SCALE (NOVOLOG) 1 VIAL SQ SCH ×5 (00:22→21:44)
[2020-05-27] MEDS: SODIUM BICARBONATE 8.4% - 100 MEQ in DEXTROSE 5%-WATER - 1,000 ML IV SCH ×3 (00:26→21:43)
[2020-05-27] MEDS ORDERED: MEROPENEM 1 GM VIAL (RESTRICTED TO ID) IVPB ONE ×3 (00:30→18:32)
[2020-05-27] MEDS ORDERED: DEXTROSE 5%-WATER 100 ML IVPB ONE ×3 (00:30→18:32)
[2020-05-27] MEDS: HYDROCORTISONE SOD SUCCINATE 100 MG/2 ML VIAL IVPB SCH ×4 (00:46→18:36)
[2020-05-27] MEDS: MEROPENEM 1 GM in DEXTROSE 5%-WATER 100 ML IVPB SCH ×2 (03:46→16:20)
[2020-05-27] MEDS ORDERED: NOREPINEPHRINE NS PREMIX 16,000 MCG/500 ML BAG IVPB ONE ×2 (03:57→23:43)
[2020-05-27] MEDS: VASOPRESSIN 40 UNITS in SODIUM CHLORIDE 98 ML IVPB SCH ×2 (04:01→18:27)
[2020-05-27 07:15] LABS: POTASSIUM 4.9 mmol/L (3.5-5.1)
[2020-05-27 07:24] LABS: ALBUMIN 0.6 g/dl (3.4-5.0); MAGNESIUM 1.5 mg/dL (1.8-2.4)
[2020-05-27 07:27] LABS: CREATININE 3.1 mg/dL (0.55-1.3); PHOSPHOROUS 8.2 mg/dL (2.5-4.9)
[2020-05-27 07:28] LABS: BILIRUBIN,TOTAL 0.4 mg/dL (0.2-1); TOT PROT 3.2 g/dl (6.4-8.2)
[2020-05-27 07:39] LABS: BLOOD UREA NITROGEN 116.7 mg/dL (7-18); CALCIUM 5.2 mg/dL (8.5-10.1)
[2020-05-27] MEDS: HEPARIN INFUSION - 25,000 UNITS/500 ML INFUS.BAG IVPB SCH (09:17)
[2020-05-27 09:21] LABS: ARTERIAL BLD GAS O2 SATURATION 95.2 mmHg (95-98); ARTERIAL BLOOD GAS BASE EXCESS -12.3 mmol/L (-2-2); ARTERIAL BLOOD GAS PO2 84.4 mmHg (80-100); ARTERIAL BLOOD GAS pH 7.268 (7.350-7.450)
[2020-05-27 09:22] LABS: ALLENS TEST POSITIVE
[2020-05-27] MEDS: PHENYLEPHRINE NS PREMIX 50,000 MCG/500 ML BAG CVP SCH ×2 (09:22→14:27)
[2020-05-27 09:23] LABS: VENT MODE A/C; VENT RATE 12
[2020-05-27] MEDS: MIDAZOLAM 100 MG/100 ML MG IVPB SCH ×2 (09:24→21:12)
[2020-05-27 09:44] LABS: HEMATOCRIT 31.6 % (35.4-49); HEMOGLOBIN 10.3 GM/dL (11.7-16.9); MCH 28.4 pg (25.7-33.7); MCHC 32.6 g/dl (32.0-35.9); MEAN CELL VOLUME 87.3 fl (80-96); MEAN PLT VOLUME 10.9 fl (7.5-11.1); PLATELET COUNT 82 K/MM3 (134-434); RBC 3.62 M/mm3 (4.00-5.60); RDW 19.3 % (11.9-15.9)
[2020-05-27 09:52] LABS: WHITE BLOOD COUNT 36.7 K/mm3 (4.0-10.0)
[2020-05-27 10:04] LABS: ALBUMIN 0.6 g/dl (3.4-5.0); MAGNESIUM 1.6 mg/dL (1.8-2.4)
[2020-05-27 10:07] LABS: CREATININE 3.1 mg/dL (0.55-1.3); PHOSPHOROUS 8.2 mg/dL (2.5-4.9)
[2020-05-27 10:08] LABS: BILIRUBIN,TOTAL 0.4 mg/dL (0.2-1); TOT PROT 3.2 g/dl (6.4-8.2)
[2020-05-27] MEDS: MUPIROCIN 2% TOPICAL OINTMENT FOR DECOLONIZATION NS SCH ×2 (10:24→21:41)
[2020-05-27] MEDS: FLUDROCORTISONE ACETATE 0.1 MG TABLET (FP) PO SCH (10:24)
[2020-05-27] MEDS: FAMOTIDINE 20 MG TABLET PO SCH (10:25)
[2020-05-27] MEDS: PANTOPRAZOLE SODIUM 40 MG VIAL IVPUSH SCH (10:25)
[2020-05-27] MEDS: SODIUM ZIRCONIUM CYCLOSILICATE (LOKELMA) 5 GM PACKET PO SCH ×2 (10:25→21:41)
[2020-05-27] MEDS: DOPAMINE 400 MG/D5W - 400,000 MCG/250 ML INFUS.BAG IVPB SCH (10:26)
[2020-05-27 10:34] LABS: BLOOD UREA NITROGEN 114.6 mg/dL (7-18)
[2020-05-27 10:35] LABS: CALCIUM 5.1 mg/dL (8.5-10.1)
[2020-05-27] MEDS: FENTANYL IVPB 500 MCG/100 ML BAG IVPB SCH (18:27)
[2020-05-27] MEDS: CHLORHEXIDINE GLUCONATE 4% CLEANSER FOR DECOLONIZATION TP SCH (21:41)
[2020-05-28] MEDS: HYDROCORTISONE SOD SUCCINATE 100 MG/2 ML VIAL IVPB SCH ×4 (00:10→18:45)
[2020-05-28] MEDS: VASOPRESSIN 40 UNITS in SODIUM CHLORIDE 98 ML IVPB SCH ×2 (00:12→19:44)
[2020-05-28] MEDS: SODIUM BICARBONATE 8.4% - 100 MEQ in DEXTROSE 5%-WATER - 1,000 ML IV SCH ×2 (01:22→10:24)
[2020-05-28] MEDS: NOREPINEPHRINE BITARTRATE 16,000 MCG in SODIUM CHLORIDE 484 ML IV SCH (01:22)
[2020-05-28] MEDS: MEROPENEM 1 GM in DEXTROSE 5%-WATER 100 ML IVPB SCH (03:29)
[2020-05-28] MEDS: HEPARIN INFUSION - 25,000 UNITS/500 ML INFUS.BAG IVPB SCH (06:25)
[2020-05-28] MEDS ORDERED: ACETAMINOPHEN 1000 MG/100 ML VIAL (NON FORMULARY) IVPB PRN (06:28)
[2020-05-28 06:57] LABS: BASO % 0.1 % (0-2.0); HEMATOCRIT 29.2 % (35.4-49); HEMOGLOBIN 9.6 GM/dL (11.7-16.9); LYMPH % 1.5 % (8-40); MCH 28.3 pg (25.7-33.7); MCHC 32.9 g/dl (32.0-35.9); MEAN PLT VOLUME 12.1 fl (7.5-11.1); MONO % 2.4 % (3.8-10.2); PLATELET COUNT 79 K/MM3 (134-434); RDW 18.9 % (11.9-15.9)
[2020-05-28 07:02] LABS: WHITE BLOOD COUNT 32.2 K/mm3 (4.0-10.0)
[2020-05-28] MEDS: INSULIN SLIDING SCALE (NOVOLOG) 1 VIAL SQ SCH ×4 (07:06→22:27)
[2020-05-28 07:15] LABS: CHLORIDE 106 mmol/L (98-107); POTASSIUM 4.6 mmol/L (3.5-5.1); SODIUM 140 mmol/L (136-145)
[2020-05-28 07:20] LABS: ALBUMIN 0.5 g/dl (3.4-5.0); ANION GAP 17 MMOL/L (8-16); CO2 16 mmol/L (21-32); GLUCOSE,RANDOM 110 mg/dL (74-106); MAGNESIUM 1.4 mg/dL (1.8-2.4)
[2020-05-28 07:23] LABS: CREATININE 3.2 mg/dL (0.55-1.3); PHOSPHOROUS 7.4 mg/dL (2.5-4.9); SGOT/AST 115 U/L (15-37); SGPT/ALT 132 U/L (13-61)
[2020-05-28 07:24] LABS: BILIRUBIN,TOTAL 0.6 mg/dL (0.2-1); TOT PROT 3.1 g/dl (6.4-8.2)
[2020-05-28 09:03] LABS: CALCIUM < 5.0 mg/dL (8.5-10.1)
[2020-05-28 09:04] LABS: ALK PHOS 472 U/L (45-117)
[2020-05-28 09:32] LABS: ANISOCYTOSIS 0; MACROCYTOSIS 0; OVALOCYTE 1+; PLATELET ESTIMATE DECREASED
[2020-05-28] MEDS ORDERED: CALCIUM GLUCONATE 10% - 1,000 MG/10 ML VIAL IVPB ONE (09:52)
[2020-05-28] MEDS: FLUDROCORTISONE ACETATE 0.1 MG TABLET (FP) PO SCH (10:20)
[2020-05-28] MEDS: PANTOPRAZOLE SODIUM 40 MG VIAL IVPUSH SCH (10:21)
[2020-05-28] MEDS: SODIUM ZIRCONIUM CYCLOSILICATE (LOKELMA) 5 GM PACKET PO SCH ×2 (10:21→22:55)
[2020-05-28] MEDS: FENTANYL IVPB 500 MCG/100 ML BAG IVPB SCH ×2 (10:22→19:43)
[2020-05-28] MEDS: MUPIROCIN 2% TOPICAL OINTMENT FOR DECOLONIZATION NS SCH ×2 (10:24→22:55)
[2020-05-28] MEDS ORDERED: DEXTROSE 5%-WATER - 50 ML IVPB ONE (12:26)
[2020-05-28] MEDS ORDERED: cefTRIAXone SODIUM 1 GM VIAL ONE (12:26)
[2020-05-28] MEDS: CEFTRIAXONE 1 GM in DEXTROSE 5%-WATER - 50 ML IVPB SCH (12:30)
[2020-05-28] MEDS: DOPAMINE 400 MG/D5W - 400,000 MCG/250 ML INFUS.BAG IVPB SCH (12:34)
[2020-05-28] MEDS ORDERED: MAGNESIUM SULF 50% (8.12 MEQ/2 ML-1 GM VIAL) IVPB ONE (19:26)
[2020-05-28] MEDS: PHENYLEPHRINE NS PREMIX 50,000 MCG/500 ML BAG CVP SCH (19:43)
[2020-05-28] MEDS: CHLORHEXIDINE GLUCONATE 4% CLEANSER FOR DECOLONIZATION TP SCH (22:55)
[2020-05-29] MEDS: HYDROCORTISONE SOD SUCCINATE 100 MG/2 ML VIAL IVPB SCH ×4 (00:54→17:57)
[2020-05-29 01:29] LABS: ARTERIAL BLD GAS O2 SATURATION 99.7 mmHg (95-98); ARTERIAL BLOOD GAS BASE EXCESS -6.6 mmol/L (-2-2); ARTERIAL BLOOD GAS pH 7.416 (7.350-7.450)
[2020-05-29 01:33] LABS: VENT MODE A/C; VENT RATE 12
[2020-05-29 06:51] LABS: BASO % 0.1 % (0-2.0); EOS % 0.1 % (0-4.5); HEMATOCRIT 29.1 % (35.4-49); HEMOGLOBIN 9.7 GM/dL (11.7-16.9); LYMPH % 1.7 % (8-40); MCH 28.7 pg (25.7-33.7); MCHC 33.4 g/dl (32.0-35.9); MEAN CELL VOLUME 85.9 fl (80-96); MEAN PLT VOLUME 10.7 fl (7.5-11.1); MONO % 1.8 % (3.8-10.2); NEUT % 96.3 % (42.8-82.8); PLATELET COUNT 60 K/MM3 (134-434); RBC 3.38 M/mm3 (4.00-5.60); RDW 18.7 % (11.9-15.9)
[2020-05-29 07:10] LABS: WHITE BLOOD COUNT 38.1 K/mm3 (4.0-10.0)
[2020-05-29 07:23] LABS: ALBUMIN 0.5 g/dl (3.4-5.0); CO2 22 mmol/L (21-32); MAGNESIUM 1.7 mg/dL (1.8-2.4)
[2020-05-29 07:24] LABS: GLUCOSE,RANDOM 138 mg/dL (74-106)
[2020-05-29 07:26] LABS: BILIRUBIN,TOTAL 0.5 mg/dL (0.2-1); CREATININE 2.7 mg/dL (0.55-1.3); PHOSPHOROUS 8.1 mg/dL (2.5-4.9); SGOT/AST 94 U/L (15-37); SGPT/ALT 83 U/L (13-61); TOT PROT 3.3 g/dl (6.4-8.2)
[2020-05-29 07:30] LABS: ANION GAP 13 MMOL/L (8-16); CHLORIDE 99 mmol/L (98-107); SODIUM 135 mmol/L (136-145)
[2020-05-29] MEDS ORDERED: cefTRIAXone SODIUM 1 GM VIAL ONE (07:42)
[2020-05-29] MEDS ORDERED: DEXTROSE 5%-WATER - 50 ML IVPB ONE (07:43)
[2020-05-29 07:54] LABS: ALK PHOS 375 U/L (45-117)
[2020-05-29 08:32] LABS: BLOOD UREA NITROGEN 104.4 mg/dL (7-18)
[2020-05-29 08:33] LABS: CALCIUM < 5.0 mg/dL (8.5-10.1)
[2020-05-29 08:56] LABS: ANISOCYTOSIS 1+; MACROCYTOSIS 0; PLATELET ESTIMATE DECREASED; TOXIC GRANULATION 1+
[2020-05-29] MEDS: MIDAZOLAM 100 MG/100 ML MG IVPB SCH (10:38)
[2020-05-29] MEDS: NOREPINEPHRINE BITARTRATE 16,000 MCG in SODIUM CHLORIDE 484 ML IV SCH (10:44)
[2020-05-29] MEDS: HEPARIN INFUSION - 25,000 UNITS/500 ML INFUS.BAG IVPB SCH (10:45)
[2020-05-29] MEDS: MUPIROCIN 2% TOPICAL OINTMENT FOR DECOLONIZATION NS SCH (10:45)
[2020-05-29] MEDS: CEFTRIAXONE 1 GM in DEXTROSE 5%-WATER - 50 ML IVPB SCH (10:46)
[2020-05-29] MEDS: FLUDROCORTISONE ACETATE 0.1 MG TABLET (FP) PO SCH (10:46)
[2020-05-29] MEDS: SODIUM ZIRCONIUM CYCLOSILICATE (LOKELMA) 5 GM PACKET PO SCH (10:46)
[2020-05-29] MEDS: PANTOPRAZOLE SODIUM 40 MG VIAL IVPUSH SCH (10:46)
[2020-05-29] MEDS: DOPAMINE 400 MG/D5W - 400,000 MCG/250 ML INFUS.BAG IVPB SCH (10:47)
[2020-05-29] MEDS: INSULIN SLIDING SCALE (NOVOLOG) 1 VIAL SQ SCH ×2 (11:00→21:57)
[2020-05-29] MEDS ORDERED: FENTANYL IVPB 500 MCG/100 ML BAG IVPB ONE (12:53)
[2020-05-29] MEDS ORDERED: CALCIUM GLUCONATE 10% - 1,000 MG/10 ML VIAL IVPUSH ONE (14:39)
[2020-05-29] MEDS ORDERED: MIDAZOLAM 100 MG/100 ML MG IVPB ONE (14:47)
[2020-05-29] MEDS: SODIUM CHLORIDE 0.45% 1,000 ML IV SCH (15:15)
[2020-05-29] MEDS: FENTANYL IVPB 500 MCG/100 ML BAG IVPB SCH (17:59)
[2020-05-29] MEDS: PHENYLEPHRINE NS PREMIX 50,000 MCG/500 ML BAG CVP SCH (17:59)
[2020-05-29] MEDS: VASOPRESSIN 40 UNITS in SODIUM CHLORIDE 98 ML IVPB SCH (18:00)
[2020-05-29] MEDS: AMINO ACIDS/PROTEIN HYDROLYS 30 ML LIQUID.PKT PO SCH (18:02)
[2020-05-29] MEDS ORDERED: CALCIUM GLUCONATE 10% - 1,000 MG/10 ML VIAL IVPB ONE (18:15)
[2020-05-29] MEDS ORDERED: MAGNESIUM SULF 50% (8.12 MEQ/2 ML-1 GM VIAL) IVPB ONE (18:25)
[2020-05-29] MEDS: CHLORHEXIDINE GLUCONATE 4% CLEANSER FOR DECOLONIZATION TP SCH (21:56)
[2020-05-30] MEDS: HYDROCORTISONE SOD SUCCINATE 100 MG/2 ML VIAL IVPB SCH ×3 (00:22→12:00)
[2020-05-30] MEDS ORDERED: LACTATED RINGERS SOLUTION 1000 ML INFUS.BAG IV ONE ×2 (01:24→01:26)
[2020-05-30] MEDS ORDERED: SODIUM CHLORIDE 0.9% 500 ML INFUS.BAG IV ONE ×2 (02:00→03:43)
[2020-05-30] MEDS: INSULIN SLIDING SCALE (NOVOLOG) 1 VIAL SQ SCH ×3 (06:42→19:15)
[2020-05-30 07:41] LABS: BASO % 0.2 % (0-2.0); HEMATOCRIT 27.1 % (35.4-49); HEMOGLOBIN 8.8 GM/dL (11.7-16.9); LYMPH % 0.8 % (8-40); MCH 28.2 pg (25.7-33.7); MCHC 32.5 g/dl (32.0-35.9); MEAN CELL VOLUME 86.7 fl (80-96); MEAN PLT VOLUME 10.9 fl (7.5-11.1); MONO % 1.3 % (3.8-10.2); NEUT % 97.7 % (42.8-82.8); PLATELET COUNT 62 K/MM3 (134-434); RBC 3.13 M/mm3 (4.00-5.60); RDW 18.3 % (11.9-15.9)
[2020-05-30 07:55] LABS: CHLORIDE 100 mmol/L (98-107); POTASSIUM 4.2 mmol/L (3.5-5.1); SODIUM 133 mmol/L (136-145); WHITE BLOOD COUNT 31.5 K/mm3 (4.0-10.0)
[2020-05-30 07:59] LABS: ALBUMIN 0.6 g/dl (3.4-5.0); ANION GAP 12 MMOL/L (8-16); BLOOD UREA NITROGEN 102.8 mg/dL (7-18); CO2 21 mmol/L (21-32); GLUCOSE,RANDOM 91 mg/dL (74-106); MAGNESIUM 2.1 mg/dL (1.8-2.4)
[2020-05-30 08:02] LABS: CREATININE 2.6 mg/dL (0.55-1.3); PHOSPHOROUS 7.9 mg/dL (2.5-4.9); SGOT/AST 80 U/L (15-37); SGPT/ALT 55 U/L (13-61)
[2020-05-30 08:03] LABS: BILIRUBIN,TOTAL 0.7 mg/dL (0.2-1); TOT PROT 3.4 g/dl (6.4-8.2)
[2020-05-30 08:13] LABS: ALK PHOS 333 U/L (45-117)
[2020-05-30 08:55] LABS: CALCIUM < 5.0 mg/dL (8.5-10.1)
[2020-05-30] MEDS ORDERED: CALCIUM GLUCONATE 10% - 1,000 MG/10 ML VIAL IVPB ONE ×2 (09:15→10:28)
[2020-05-30] MEDS: AMINO ACIDS/PROTEIN HYDROLYS 30 ML LIQUID.PKT PO SCH ×2 (09:27→19:47)
[2020-05-30] MEDS ORDERED: cefTRIAXone SODIUM 1 GM VIAL ONE (09:29)
[2020-05-30] MEDS ORDERED: DEXTROSE 5%-WATER - 50 ML IVPB ONE (09:29)
[2020-05-30 10:24] LABS: ANISOCYTOSIS 1+
[2020-05-30 10:25] LABS: PLATELET ESTIMATE DECREASED
[2020-05-30] MEDS: SODIUM ZIRCONIUM CYCLOSILICATE (LOKELMA) 5 GM PACKET PO SCH (10:27)
[2020-05-30] MEDS: CEFTRIAXONE 1 GM in DEXTROSE 5%-WATER - 50 ML IVPB SCH (10:28)
[2020-05-30] MEDS: PANTOPRAZOLE SODIUM 40 MG VIAL IVPUSH SCH (11:28)
[2020-05-30] MEDS: MIDAZOLAM 100 MG/100 ML MG IVPB SCH ×2 (11:30→19:46)
[2020-05-30] MEDS: DOPAMINE 400 MG/D5W - 400,000 MCG/250 ML INFUS.BAG IVPB SCH (11:30)
[2020-05-30] MEDS: HEPARIN INFUSION - 25,000 UNITS/500 ML INFUS.BAG IVPB SCH (11:56)
[2020-05-30] MEDS: HEPARIN NA (PORCINE) 5,000 UNITS/ML 1ML VIAL IVPUSH PRN ×2 (11:56→20:20)
[2020-05-30] MEDS: SODIUM CHLORIDE 0.45% 1,000 ML IV SCH (15:48)
[2020-05-30] MEDS: VASOPRESSIN 40 UNITS in SODIUM CHLORIDE 98 ML IVPB SCH (19:46)
[2020-05-30] MEDS: FENTANYL IVPB 500 MCG/100 ML BAG IVPB SCH (19:48)
[2020-05-30] MEDS: PHENYLEPHRINE NS PREMIX 50,000 MCG/500 ML BAG CVP SCH (19:48)
[2020-05-31] MEDS: HEPARIN NA (PORCINE) 5,000 UNITS/ML 1ML VIAL IVPUSH PRN (03:43)
[2020-05-31] MEDS: INSULIN SLIDING SCALE (NOVOLOG) 1 VIAL SQ SCH ×5 (06:22→22:55)
[2020-05-31 07:44] LABS: BASO % 0.1 % (0-2.0); HEMATOCRIT 25.6 % (35.4-49); HEMOGLOBIN 8.4 GM/dL (11.7-16.9); LYMPH % 0.8 % (8-40); MCH 28.7 pg (25.7-33.7); MCHC 32.9 g/dl (32.0-35.9); MEAN CELL VOLUME 87.2 fl (80-96); MEAN PLT VOLUME 9.9 fl (7.5-11.1); MONO % 0.9 % (3.8-10.2); NEUT % 98.2 % (42.8-82.8); PLATELET COUNT 109 K/MM3 (134-434); RBC 2.93 M/mm3 (4.00-5.60); RDW 18.4 % (11.9-15.9)
[2020-05-31 07:59] LABS: CHLORIDE 99 mmol/L (98-107); SODIUM 132 mmol/L (136-145)
[2020-05-31 08:01] LABS: ALBUMIN 0.6 g/dl (3.4-5.0)
[2020-05-31 08:02] LABS: ANION GAP 13 MMOL/L (8-16); BLOOD UREA NITROGEN 99.8 mg/dL (7-18); CO2 20 mmol/L (21-32); GLUCOSE,RANDOM 103 mg/dL (74-106)
[2020-05-31 08:04] LABS: SGPT/ALT 39 U/L (13-61)
[2020-05-31 08:05] LABS: CREATININE 2.7 mg/dL (0.55-1.3); PHOSPHOROUS 7.9 mg/dL (2.5-4.9); SGOT/AST 62 U/L (15-37)
[2020-05-31 08:06] LABS: BILIRUBIN,TOTAL 0.5 mg/dL (0.2-1); TOT PROT 3.6 g/dl (6.4-8.2)
[2020-05-31 08:07] LABS: WHITE BLOOD COUNT 36.6 K/mm3 (4.0-10.0)
[2020-05-31 08:12] LABS: ALK PHOS 297 U/L (45-117)
[2020-05-31 08:41] LABS: CALCIUM < 5.0 mg/dL (8.5-10.1)
[2020-05-31 08:52] LABS: ANISOCYTOSIS 1+; MACROCYTOSIS 1+; PLATELET ESTIMATE DECREASED
[2020-05-31] MEDS ORDERED: cefTRIAXone SODIUM 1 GM VIAL ONE (10:25)
[2020-05-31] MEDS ORDERED: DEXTROSE 5%-WATER - 50 ML IVPB ONE (10:25)
[2020-05-31] MEDS: PANTOPRAZOLE SODIUM 40 MG VIAL IVPUSH SCH (10:30)
[2020-05-31] MEDS: CEFTRIAXONE 1 GM in DEXTROSE 5%-WATER - 50 ML IVPB SCH (10:30)
[2020-05-31] MEDS: SODIUM ZIRCONIUM CYCLOSILICATE (LOKELMA) 5 GM PACKET PO SCH (10:30)
[2020-05-31] MEDS: AMINO ACIDS/PROTEIN HYDROLYS 30 ML LIQUID.PKT PO SCH ×2 (10:30→18:17)
[2020-05-31] MEDS: ASPIRIN 81 MG CHEWABLE TABLETS PO SCH (11:19)
[2020-05-31] MEDS: PHENYLEPHRINE NS PREMIX 50,000 MCG/500 ML BAG CVP SCH (13:41)
[2020-05-31] MEDS: DOPAMINE 400 MG/D5W - 400,000 MCG/250 ML INFUS.BAG IVPB SCH (13:41)
[2020-05-31] MEDS: SODIUM CHLORIDE 0.45% 1,000 ML IV SCH (15:00)
[2020-05-31] MEDS: FENTANYL IVPB 500 MCG/100 ML BAG IVPB SCH (17:08)
[2020-05-31] MEDS: VASOPRESSIN 40 UNITS in SODIUM CHLORIDE 98 ML IVPB SCH (17:11)
[2020-05-31] MEDS: HEPARIN INFUSION - 25,000 UNITS/500 ML INFUS.BAG IVPB SCH (17:13)
[2020-05-31] MEDS: NOREPINEPHRINE NS PREMIX 16,000 MCG/500 ML BAG IVPB SCH (17:14)
[2020-05-31] MEDS: CHLORHEXIDINE GLUCONATE 4% CLEANSER FOR DECOLONIZATION TP SCH (22:56)
[2020-06-01] MEDS: INSULIN SLIDING SCALE (NOVOLOG) 1 VIAL SQ SCH ×3 (06:59→21:17)
[2020-06-01 07:32] LABS: CHLORIDE 98 mmol/L (98-107); POTASSIUM 3.9 mmol/L (3.5-5.1); SODIUM 130 mmol/L (136-145)
[2020-06-01 07:34] LABS: ANION GAP 15 MMOL/L (8-16); BLOOD UREA NITROGEN 98.3 mg/dL (7-18); CO2 17 mmol/L (21-32); GLUCOSE,RANDOM 145 mg/dL (74-106)
[2020-06-01 07:37] LABS: CREATININE 2.8 mg/dL (0.55-1.3)
[2020-06-01 08:00] LABS: BASO % 0.3 % (0-2.0); EOS % 0.2 % (0-4.5); HEMATOCRIT 25.6 % (35.4-49); HEMOGLOBIN 8.1 GM/dL (11.7-16.9); LYMPH % 0.6 % (8-40); MCH 28.8 pg (25.7-33.7); MCHC 31.7 g/dl (32.0-35.9); MEAN CELL VOLUME 90.9 fl (80-96); MEAN PLT VOLUME 10.1 fl (7.5-11.1); MONO % 0.6 % (3.8-10.2); NEUT % 98.3 % (42.8-82.8); PLATELET COUNT 137 K/MM3 (134-434); RBC 2.82 M/mm3 (4.00-5.60); RDW 18.7 % (11.9-15.9)
[2020-06-01] MEDS ORDERED: FENTANYL NS IVPB 500 MCG/100 ML BAG IVPB ONE (08:30)
[2020-06-01 08:31] LABS: CALCIUM < 5.0 mg/dL (8.5-10.1)
[2020-06-01] MEDS ORDERED: DEXTROSE 5%-WATER - 50 ML IVPB ONE (08:31)
[2020-06-01] MEDS ORDERED: cefTRIAXone SODIUM 1 GM VIAL ONE (08:31)
[2020-06-01] MEDS: FENTANYL IVPB 500 MCG/100 ML BAG IVPB SCH ×4 (09:23→21:07)
[2020-06-01] MEDS: HEPARIN INFUSION - 25,000 UNITS/500 ML INFUS.BAG IVPB SCH (09:25)
[2020-06-01] MEDS: HEPARIN NA (PORCINE) 5,000 UNITS/ML 1ML VIAL IVPUSH PRN (09:37)
[2020-06-01] MEDS: ASPIRIN 81 MG CHEWABLE TABLETS PO SCH (10:07)
[2020-06-01] MEDS: PANTOPRAZOLE SODIUM 40 MG VIAL IVPUSH SCH (10:08)
[2020-06-01] MEDS: CEFTRIAXONE 1 GM in DEXTROSE 5%-WATER - 50 ML IVPB SCH (10:09)
[2020-06-01 11:19] LABS: ANISOCYTOSIS 1+; MACROCYTOSIS 0; PLATELET ESTIMATE DECREASED
[2020-06-01 12:23] LABS: WHITE BLOOD COUNT 38.5 K/mm3 (4.0-10.0)
[2020-06-01 14:29] VITALS: BMI 26.2
[2020-06-01] MEDS: AMINO ACIDS/PROTEIN HYDROLYS 30 ML LIQUID.PKT PO SCH ×2 (14:44→18:57)
[2020-06-01] MEDS: DOPAMINE 400 MG/D5W - 400,000 MCG/250 ML INFUS.BAG IVPB SCH (14:45)
[2020-06-01] MEDS: PHENYLEPHRINE NS PREMIX 50,000 MCG/500 ML BAG CVP SCH (14:45)
[2020-06-01] MEDS: NOREPINEPHRINE NS PREMIX 16,000 MCG/500 ML BAG IVPB SCH ×2 (15:24→21:19)
[2020-06-01] MEDS ORDERED: CALCIUM GLUCONATE 10% - 1,000 MG/10 ML VIAL IVPB ONE ×2 (16:10→19:00)
[2020-06-01] MEDS ORDERED: SODIUM BICARBONATE 8.4% 50 MEQ/50 ML DISP.SYRIN IVPUSH ONE (16:11)
[2020-06-01] MEDS: [UNRECOGNIZED DRUG - OTHER] IV SCH (18:19)
[2020-06-01] MEDS: AMINO ACIDS IV SCH (18:19)
[2020-06-01] MEDS: SODIUM CHLORIDE IV SCH (18:19)
[2020-06-01] MEDS: MULTIVIT INJ. ADULT COMBO WITH VIT K 1 COMBO 10 ML VIAL IV SCH (18:20)
[2020-06-01] MEDS: SODIUM CHLORIDE 0.45% 1,000 ML IV SCH (18:50)
[2020-06-01] MEDS: SODIUM ZIRCONIUM CYCLOSILICATE (LOKELMA) 5 GM PACKET PO SCH (20:10)
[2020-06-01] MEDS: VASOPRESSIN 40 UNITS in SODIUM CHLORIDE 98 ML IVPB SCH (20:10)
[2020-06-01] MEDS: MIDAZOLAM 100 MG/100 ML MG IVPB SCH (21:18)
[2020-06-01] MEDS: CHLORHEXIDINE GLUCONATE 4% CLEANSER FOR DECOLONIZATION TP SCH ×2 (21:18)
[2020-06-02] MEDS: NOREPINEPHRINE NS PREMIX 16,000 MCG/500 ML BAG IVPB SCH ×2 (02:16→22:19)
[2020-06-02] MEDS: HEPARIN INFUSION - 25,000 UNITS/500 ML INFUS.BAG IVPB SCH ×2 (06:15→22:20)
[2020-06-02] MEDS: INSULIN SLIDING SCALE (NOVOLOG) 1 VIAL SQ SCH ×4 (06:15→23:00)
[2020-06-02 08:09] LABS: POTASSIUM 4.2 mmol/L (3.5-5.1)
[2020-06-02 08:18] LABS: ALBUMIN 0.5 g/dl (3.4-5.0); BLOOD UREA NITROGEN 102.5 mg/dL (7-18)
[2020-06-02 08:23] LABS: BILIRUBIN,TOTAL 0.8 mg/dL (0.2-1); TOT PROT 3.4 g/dl (6.4-8.2)
[2020-06-02] MEDS: AMINO ACIDS/PROTEIN HYDROLYS 30 ML LIQUID.PKT PO SCH ×2 (09:10→18:02)
[2020-06-02] MEDS: ASPIRIN 81 MG CHEWABLE TABLETS PO SCH (11:01)
[2020-06-02] MEDS ORDERED: cefTRIAXone SODIUM 1 GM VIAL ONE (11:03)
[2020-06-02] MEDS ORDERED: DEXTROSE 5%-WATER - 50 ML IVPB ONE (11:03)
[2020-06-02 11:07] LABS: CALCIUM 5.5 mg/dL (8.5-10.1)
[2020-06-02] MEDS: SODIUM ZIRCONIUM CYCLOSILICATE (LOKELMA) 5 GM PACKET PO SCH (11:07)
[2020-06-02] MEDS: CEFTRIAXONE 1 GM in DEXTROSE 5%-WATER - 50 ML IVPB SCH (11:08)
[2020-06-02] MEDS: PANTOPRAZOLE SODIUM 40 MG VIAL IVPUSH SCH (11:08)
[2020-06-02] MEDS: DOPAMINE 400 MG/D5W - 400,000 MCG/250 ML INFUS.BAG IVPB SCH ×2 (12:50→15:05)
[2020-06-02] MEDS: FENTANYL IVPB 500 MCG/100 ML BAG IVPB SCH ×2 (14:20→22:19)
[2020-06-02] MEDS ORDERED: SODIUM CHLORIDE 0.45% 1,000 ML with SODIUM BICARBONATE 8.4% - 75 MEQ IV SCH (14:34)
[2020-06-02] MEDS ORDERED: SODIUM BICARBONATE 8.4% 50 MEQ/50 ML DISP.SYRIN IVPUSH ONE (14:45)
[2020-06-02] MEDS: PHENYLEPHRINE NS PREMIX 50,000 MCG/500 ML BAG CVP SCH (15:07)
[2020-06-02] MEDS: SODIUM BICARBONATE 8.4% - 75 MEQ in SODIUM CHLORIDE 0.45% 1,000 ML IV SCH (15:25)
[2020-06-02] MEDS: AMINO ACIDS IV SCH ×2 (22:17→22:46)
[2020-06-02] MEDS: [UNRECOGNIZED DRUG - OTHER] IV SCH ×2 (22:17→22:46)
[2020-06-02] MEDS: SODIUM CHLORIDE IV SCH ×2 (22:17→22:46)
[2020-06-02] MEDS: CHLORHEXIDINE GLUCONATE 4% CLEANSER FOR DECOLONIZATION TP SCH (22:18)
[2020-06-02] MEDS: VASOPRESSIN 40 UNITS in SODIUM CHLORIDE 98 ML IVPB SCH (22:18)
[2020-06-02] MEDS: MIDAZOLAM 100 MG/100 ML MG IVPB SCH (22:18)
[2020-06-02] MEDS: MULTIVIT INJ. ADULT COMBO WITH VIT K 1 COMBO 10 ML VIAL IV SCH ×2 (22:18→22:46)
[2020-06-03] MEDS: NOREPINEPHRINE NS PREMIX 16,000 MCG/500 ML BAG IVPB SCH ×3 (04:24→23:18)
[2020-06-03 07:36] LABS: HEMATOCRIT 23.6 % (35.4-49); HEMOGLOBIN 7.2 GM/dL (11.7-16.9); MCHC 30.7 g/dl (32.0-35.9); MEAN CELL VOLUME 94.5 fl (80-96); PLATELET COUNT 83 K/MM3 (134-434); RBC 2.49 M/mm3 (4.00-5.60); RDW 18.5 % (11.9-15.9); WHITE BLOOD COUNT 25.2 K/mm3 (4.0-10.0)
[2020-06-03 07:59] LABS: POTASSIUM 4.4 mmol/L (3.5-5.1)
[2020-06-03 08:08] LABS: ALBUMIN 0.4 g/dl (3.4-5.0)
[2020-06-03 08:10] LABS: CREATININE 3.2 mg/dL (0.55-1.3)
[2020-06-03 08:12] LABS: BILIRUBIN,TOTAL 0.6 mg/dL (0.2-1); TOT PROT 2.9 g/dl (6.4-8.2)
[2020-06-03] MEDS: HEPARIN INFUSION - 25,000 UNITS/500 ML INFUS.BAG IVPB SCH (08:42)
[2020-06-03 09:01] LABS: PHOSPHOROUS 8.3 mg/dL (2.5-4.9)
[2020-06-03] MEDS ORDERED: cefTRIAXone SODIUM 1 GM VIAL ONE (09:18)
[2020-06-03] MEDS ORDERED: DEXTROSE 5%-WATER - 50 ML IVPB ONE (09:18)
[2020-06-03] MEDS: CEFTRIAXONE 1 GM in DEXTROSE 5%-WATER - 50 ML IVPB SCH (09:34)
[2020-06-03] MEDS: PANTOPRAZOLE SODIUM 40 MG VIAL IVPUSH SCH (09:34)
[2020-06-03] MEDS: FENTANYL IVPB 500 MCG/100 ML BAG IVPB SCH ×3 (10:00→20:41)
[2020-06-03 10:12] LABS: BLOOD UREA NITROGEN 105.2 mg/dL (7-18)
[2020-06-03 10:13] LABS: CALCIUM 5.2 mg/dL (8.5-10.1)
[2020-06-03] MEDS: ASPIRIN 81 MG CHEWABLE TABLETS PO SCH (11:00)
[2020-06-03] MEDS: AMINO ACIDS/PROTEIN HYDROLYS 30 ML LIQUID.PKT PO SCH ×2 (11:00→17:31)
[2020-06-03] MEDS: SODIUM ZIRCONIUM CYCLOSILICATE (LOKELMA) 5 GM PACKET PO SCH (11:00)
[2020-06-03] MEDS ORDERED: INSULIN SLIDING SCALE (NOVOLOG) 1 VIAL SQ SCH (12:00)
[2020-06-03] MEDS: VASOPRESSIN 40 UNITS in SODIUM CHLORIDE 98 ML IVPB SCH ×2 (14:00→20:38)
[2020-06-03] MEDS: MULTIVIT INJ. ADULT COMBO WITH VIT K 1 COMBO 10 ML VIAL IV SCH (14:42)
[2020-06-03] MEDS: SODIUM CHLORIDE IV SCH (14:42)
[2020-06-03] MEDS: AMINO ACIDS IV SCH (14:42)
[2020-06-03] MEDS: [UNRECOGNIZED DRUG - OTHER] IV SCH (14:42)
[2020-06-03] MEDS: SODIUM BICARBONATE 8.4% - 75 MEQ in SODIUM CHLORIDE 0.45% 1,000 ML IV SCH (14:59)
[2020-06-03] MEDS ORDERED: HYDROCORTISONE SOD SUCCINATE 100 MG/2 ML VIAL IVPB SCH (20:00)
[2020-06-03] MEDS: MIDAZOLAM 100 MG/100 ML MG IVPB SCH (20:36)
[2020-06-03] MEDS ORDERED: FLUDROCORTISONE ACETATE 0.1 MG TABLET (FP) PO SCH (21:00)
[2020-06-03] MEDS: CHLORHEXIDINE GLUCONATE 4% CLEANSER FOR DECOLONIZATION TP SCH (23:00)
[2020-06-03] MEDS ORDERED: CALCIUM GLUCONATE 10% - 1,000 MG/10 ML VIAL IVPUSH ONE (23:33)
[2020-06-04 02:43] VITALS: BP 54/39; PULSE 79; TEMP 91.9
== END 2020-06-04 02:44 | disposition expired | DRG 870 ==
LOC: JER 10:33 → JERBED 12:24 → JICU 14:12
PROVIDERS: ADMIT Internal Medicine; ATTEND Internal Medicine
PROC: 5A1955Z Respiratory Ventilation, Greater than 96 Consecutive Hours (ICD-10-PCS; principal; 2020-05-24)
PROC: 02HV33Z Insertion of Infusion Device into Superior Vena Cava, Percutaneous Approach (ICD-10-PCS; 2020-05-24)
PROC: B548ZZA Ultrasonography of Superior Vena Cava, Guidance (ICD-10-PCS; 2020-05-24)
PROC: 0DH67UZ Insertion of Feeding Device into Stomach, Via Natural or Artificial Opening (ICD-10-PCS; 2020-05-24)
PROC: 3E0G76Z Introduction of Nutritional Substance into Upper GI, Via Natural or Artificial Opening (ICD-10-PCS; 2020-05-24)
PROC: 03HY32Z Insertion of Monitoring Device into Upper Artery, Percutaneous Approach (ICD-10-PCS; 2020-05-25)
PROC: 4A133B1 Monitoring of Arterial Pressure, Peripheral, Percutaneous Approach (ICD-10-PCS; 2020-05-25)
PROC: 4A133J1 Monitoring of Arterial Pulse, Peripheral, Percutaneous Approach (ICD-10-PCS; 2020-05-25)
PROC: 02HV33Z Insertion of Infusion Device into Superior Vena Cava, Percutaneous Approach (ICD-10-PCS; 2020-06-02)
PROC: B548ZZA Ultrasonography of Superior Vena Cava, Guidance (ICD-10-PCS; 2020-06-02)
DX: A41.50 Gram-negative sepsis, unspecified (principal); R65.21 Severe sepsis with septic shock; J96.01 Acute respiratory failure with hypoxia; N17.9 Acute kidney failure, unspecified; E87.2 Acidosis; N39.0 Urinary tract infection, site not specified; C78.7 Secondary malignant neoplasm of liver and intrahepatic bile duct; C79.51 Secondary malignant neoplasm of bone; T81.31XA Disruption of external operation (surgical) wound, not elsewhere classified, initial encounter; I82.413 Acute embolism and thrombosis of femoral vein, bilateral; I82.432 Acute embolism and thrombosis of left popliteal vein; I82.442 Acute embolism and thrombosis of left tibial vein; I12.9 Hypertensive chronic kidney disease with stage 1 through stage 4 chronic kidney disease, or unspecified chronic kidney disease; N18.30 Chronic kidney disease, stage 3 unspecified; C61 Malignant neoplasm of prostate; D64.9 Anemia, unspecified; Z88.0 Allergy status to penicillin; E87.5 Hyperkalemia; R62.7 Adult failure to thrive; Y83.8 Other surgical procedures as the cause of abnormal reaction of the patient, or of later complication, without mention of misadventure at the time of the procedure
CPT/HCPCS: 36415; 36430; 36600; 70450-TC; 71045-TC-FY; 74018-TC-FY; 80048; 80053; 81003; 82248; 82330; 82550; 82728; 82803; 82962; 83036; 83605; 83615; 83735; 83880; 84100; 84484; 85025; 85027; 85379; 85610; 85730; 86140; 86850; 86900; 86901; 86922; 87040; 87086; 87186; 87804; 93005; 93010; 93306-TC; 93970-TC; 94002; 99291; 99292; C9803; J0131; J1644; P9021; P9058; U0003